=== PATIENT | female | born 1930 | race Caucasian/White ===

== ENCOUNTER 2016-10-06 23:58 | Inpatient (IN) | payer MEDICARE, OTHER ==
[~2016-10-06] VITALS: Ht 157.5 cm; Wt 65.6 kg
[~2016-10-06 23:58] MED LIST: ALPR.25 PO; ASPI81TA82 PO; COCOOIL PO; GABA600T PO; HYDR-3535 PO; LISI-360 PO; METO100T9 PO; NORC10TA2 PO; OMEP20TA PO; POTA10TA2 PO; RIVA20 PO; SIMV20 PO; SODI1000 PO; Z.0.COMMODE-3:1; Z.0.WALKERFRONT
[2016-10-07] VITALS (28 sets, daily range): BP systolic 79–194; BP diastolic 46–146; PULSE 58–149; RESP 14–34; TEMP 97.6–98.1; O2SAT 4–99
[2016-10-07] MEDS: SODIUM CHLOR 0.9% 1000 ML INJ 800 ML IV ONE ×2 (00:17→01:54)
[2016-10-07] MEDS ORDERED: SODIUM CHLOR 0.9% 1000 ML INJ 1,000 ML IV ONE (00:17)
[2016-10-07] MEDS ORDERED: METO100T PO (00:20)
[2016-10-07] MEDS ORDERED: LISI10TA3 PO (00:20)
[2016-10-07] MEDS ORDERED: ALPR.25 PO (00:20)
[2016-10-07] MEDS ORDERED: GABA600T PO (00:20)
[2016-10-07] MEDS ORDERED: HYDR-3366 PO (00:20)
[2016-10-07] MEDS ORDERED: XARE20TA PO (00:21)
[2016-10-07] MEDS ORDERED: OMEP20TA PO (00:21)
[2016-10-07] MEDS ORDERED: DILTIAZEM HCL 25 MG/5 ML VIAL IV ONE ×2 (00:30→02:30)
[2016-10-07 00:36] LABS: AUTOMATED NEUTROPHIL # 9.5 TH/MM3 (1.8-7.7); BASOPHIL # 0.1 TH/MM3 (0-0.2); BASOPHIL % 0.6 % (0.0-2.0); EOSINOPHIL % 0.4 % (0.0-4.0); HEMATOCRIT 37.7 % (35.0-46.0); HEMO FLAGS DIFF FINAL; MEAN CELL VOLUME 85.4 FL (80.0-100.0); MEAN CORPUSCULAR HGB CONC 32.8 % (32.0-36.0); MONO % 4.5 % (0.0-8.0); NEUT % 85.5 % (16.0-70.0); PLATELET COUNT 229 TH/MM3 (150-450); RED BLOOD COUNT 4.42 MIL/MM3 (4.00-5.30); RED CELL DISTRIBUTION WIDTH 14.5 % (11.6-17.2); WHITE BLOOD COUNT 11.2 TH/MM3 (4.0-11.0)
--- NOTE | 2016-10-07 00:42 | RADRPT ---
EXAM DATE/TIME: 10/07/2016 00:31 [facility] COMPARISON: CHEST SINGLE AP, September 12, 2014, 8:56. INDICATIONS : Shortness of breath. MEDICAL HISTORY : Hypertension. SURGICAL HISTORY : None. ENCOUNTER: Initial ACUITY: 1 day PAIN SCORE: 0/10 LOCATION: Bilateral chest FINDINGS: There is diffuse hazy opacity in both lungs. Differential diagnosis includes mild edema. No significa nt effusion. Heart size upper limits normal. CONCLUSION: 1. Vascular indistinctness and hazy opacity in both lungs most characteristic of pulmonary edema. Hea rt size mildly enlarged. No pneumothorax. Maximus Mike MD on October 07, 2016 at 0:39 Board Certified Radiologist. This report was verified electronically.
[2016-10-07 00:51] LABS: INTERNATIONAL NORMALIZED RATIO 1.2 RATIO; PROTHROMBIN TIME - PATIENT 13.8 SEC (9.8-11.6)
[2016-10-07 01:05] LABS: ALT (GPT) 26 U/L (10-53); ANION GAP 12 MEQ/L (5-15); AST (GOT) 42 U/L (15-37); BICARBONATE 21.1 MEQ/L (21.0-32.0); BLOOD UREA NITROGEN 13 MG/DL (7-18); CHLORIDE 103 MEQ/L (98-107); GLOMERULAR FILTRATION RATE 85 ML/MIN (>89); POTASSIUM 4.6 MEQ/L (3.5-5.1); SODIUM (NA) 136 MEQ/L (136-145)
--- NOTE | 2016-10-07 01:17 | PD ---
HPI Chief Complaint: Respiratory Symptoms Time Seen by Provider: 00:17 Travel History International Travel<30 days: No Contact w/Intl Traveler<30days: No Traveled to known affect area: No History of Present Illness HPI 86-year-old female brought in by EMS from home for evaluation of generalized malaise, nausea, vomiting, abdominal pain, shortness of breath. The patient has had abdominal pains for the last 2-3 weeks. History of hysterectomy. When she woke up this morning she was short of breath. She is complaining of epigastric abdominal discomfort. When the patient was placed on the monitor she was in A. fib with RVR. She reports history of A. fib and is on Xarelto. She has had a cough for the last several days which is nonproductive. PFSH Past Medical History Hx Anticoagulant Therapy: Yes (XARELTO ) Arthritis: Yes Blood Disorders: No Cancer: Yes (SKIN) Cardiovascular Problems: Yes (AFIB) High Cholesterol: Yes Chemotherapy: No Cerebrovascular Accident: Yes (2003) Diabetes: No Diminished Hearing: No Endocrine: No Gastrointestinal Disorders: Yes (HX MED INDUCED GASTRIC ULCER, GERD) Genitourinary: Yes (STRESS INCONTINENCE, STAGE II FAILURE) Headaches: No Hepatitis: No Hiatal Hernia: No Hypertension: Yes Immune Disorder: No Implanted Vascular Access Dvce: No Medical other: Yes (ANEMIA) Musculoskeletal: Yes (ARTHRITIS, OSTEOPOROSIS, FIBROMYALGIA) Neurologic: Yes (TIA) Psychiatric: Yes (ANXIETY) Reproductive: No Respiratory: No Integumentary: Yes (PREVIOUS SKIN CANCER) Immunizations Current: Yes Radiation Therapy: No Thyroid Disease: No Tetanus Vaccination: Unknown PNEUMOCCOCAL Vaccine (Year): 1 Menopausal: Yes Past Surgical History Abdominal Surgery: No AICD: No Appendectomy: Yes Arteriovenous Shunt: No Body Medical Devices: LEFT CORNEA Cardiac Surgery: No Ear Surgery: No Endocrine Surgery: No Eye Surgery: Yes (MARION. CATARACT EXTRACT., LEFT CORNEA TRANSPL.) Genitourinary Surgery: No Gynecologic Surgery: Yes (HYSTERECTOMY) Hysterectomy: Yes Insulin Pump: No Joint Replacement: No Neurologic Surgery: No Oral Surgery: Yes (T&A) Pacemaker: No Thoracic Surgery: No Tonsillectomy: Yes Other Surgery: Yes Social History Alcohol Use: No Tobacco Use: No Substance Use: No Allergies-Medications (Allergen,Severity, Reaction): Coded Allergies: Cymbalta (Verified Adverse Reaction, Severe, HYPERTENSION, 10/07/16) Reported Meds & Prescriptions Reported Meds & Active Scripts Active Walker Front Wheel (Z.0.walkerfront) Device 1 Unit Commode-3:1 (Z.0.commode-3:1) Device 1 Unit Reported Xarelto (Rivaroxaban) 20 Mg Tab 20 Mg PO DAILY Omeprazole 20 Mg Tab 20 Mg PO DAILY Metoprolol Tartrate 100 Mg Tab 100 Mg PO DAILY Lisinopril 10 Mg Tab 10 Mg PO DAILY [place] (Hydrocodone-Acetaminophen) 10-325 Mg Tab 1 Tab PO Q4H PRN Gabapentin 600 Mg Tab 600 Mg PO TID Xanax (Alprazolam) 0.25 Mg Tab 0.25 Mg PO HS PRN Coconut Oil (Coconut Oil (Bulk)) Oil 15 Ml PO DAILY Sodium Chloride (Sodium Chloride (External)) Unknown Strength Tab Unknown Dose PO DAILY Potassium Chloride Er (Potassium Chloride) 10 Meq Tab 10 Meq PO DAILY Omeprazole 20 mg (Omeprazole) 20 Mg Tab 1 Tab PO BID Simvastatin 20 mg (Simvastatin) 20 Mg Tab 20 Mg PO HS Review of Systems Except as stated in HPI: all other systems reviewed are Neg Physical Exam Narrative GENERAL: Well-developed, well-nourished, awake, alert, no acute distress. SKIN: Warm and dry. HEAD: Atraumatic. Normocephalic. EYES: Pupils equal and round. No scleral icterus. No injection or drainage. ENT: No nasal bleeding or discharge. Mucous membranes pink and moist. NECK: Trachea midline. No JVD. CARDIOVASCULAR: Tachycardic, rate 150s, irregularly irregular. RESPIRATORY: Mild intercostal retractions with end expiratory wheezes bilaterally. Coarse breath sounds bilaterally. Breath sounds equal bilaterally. GASTROINTESTINAL: Abdomen soft, nondistended. Mild diffuse tenderness without peritoneal signs. Normal bowel sounds. MUSCULOSKELETAL: No obvious deformities. No clubbing. No cyanosis. No edema. NEUROLOGICAL: Awake and alert. No obvious cranial nerve deficits. Motor grossly within normal limits. Normal speech. PSYCHIATRIC: Appropriate mood and affect; insight and judgment normal. Data Data Last Documented VS Vital Signs Date Time Temp Pulse Resp B/P Pulse Ox O2 Delivery O2 Flow Rate FiO2 10/07/16 02:15 149 30 194/146 94 3 10/07/16 01:38 Nasal Cannula 10/07/16 00:06 97.7 Orders Complete Blood Count With Diff (10/07/16 00:17) Comprehensive Metabolic Panel (10/07/16 00:17) Prothrombin Time / Inr (Pt) (10/07/16 00:17) Act Partial Throm Time (Ptt) (10/07/16 00:17) Lactic Acid Sepsis Protocol (10/07/16 00:17) Ckmb (Isoenzyme) Profile (10/07/16 00:17) Troponin I (10/07/16 00:17) Urinalysis - C+S If Indicated (10/07/16 00:17) Influenzae A/B Antigen (10/07/16 00:17) Blood Culture (10/07/16 00:17) Chest, Single Ap (10/07/16:17) Blood Glucose (10/07/16 00:17) Ecg Monitoring (10/07/16 00:17) Iv Access Insert/Monitor (10/07/16 00:17) Oximetry (10/07/16 00:17) Oxygen Administration (10/07/16 00:17) Ct Abd/Pel W Iv Contrast(Rout) (10/07/16 00:17) Sodium Chlor 0.9% 1000 Ml Inj (Ns 1000 M (10/07/16 00:17) Sodium Chlor 0.9% 1000 Ml Inj (Ns 1000 M (10/07/16 00:17) Diltiazem Inj (Cardizem Inj) (10/07/16 00:30) Albuterol-Ipratropium Neb (Duoneb Neb) (10/07/16 01:00) Iohexol 350 Inj (Omnipaque 350 Inj) (10/07/16 02:08) Diltiazem Inj (Cardizem Inj) (10/07/16 02:30) B-Type Natriuretic Peptide (10/07/16 02:45) Furosemide Inj (Lasix Inj) (10/07/16 03:00) Nicardipine Inj (Cardene Inj) (10/07/16 03:00) Lipase (10/07/16 03:05) Thyroid Stimulating Hormone (10/07/16 03:05) Creatine Kinase (Cpk) (10/07/16 06:00) Creatine Kinase (Cpk) (10/07/16 12:00) Troponin I (10/07/16 06:00) Troponin I (10/07/16 12:00) Nitroglycerin Sl (Nitrostat Sl) (10/07/16 03:15) Labs Laboratory Tests Test 10/07/16 00:20 White Blood Count 11.2 TH/MM3 Red Blood Count 4.42 MIL/MM3 Hemoglobin 12.4 GM/DL Hematocrit 37.7 % Mean Corpuscular Volume 85.4 FL Mean Corpuscular Hemoglobin 28.0 PG Mean Corpuscular Hemoglobin 32.8 % Concent Red Cell Distribution Width 14.5 % Platelet Count 229 TH/MM3 Mean Platelet Volume 9.7 FL Neutrophils (%) (Auto) 85.5 % Lymphocytes (%) (Auto) 9.0 % Monocytes (%) (Auto) 4.5 % Eosinophils (%) (Auto) 0.4 % Basophils (%) (Auto) 0.6 % Neutrophils # (Auto) 9.5 TH/MM3 Lymphocytes # (Auto) 1.0 TH/MM3 Monocytes # (Auto) 0.5 TH/MM3 Eosinophils # (Auto) 0.0 TH/MM3 Basophils # (Auto) 0.1 TH/MM3 CBC Comment DIFF FINAL Differential Comment Prothrombin Time 13.8 SEC Prothromb Time International 1.2 RATIO Ratio Activated Partial 31.0 SEC Thromboplast Time Sodium Level 136 MEQ/L Potassium Level 4.6 MEQ/L Chloride Level 103 MEQ/L Carbon Dioxide Level 21.1 MEQ/L Anion Gap 12 MEQ/L Blood Urea Nitrogen 13 MG/DL Creatinine 0.66 MG/DL Estimat Glomerular Filtration 85 ML/MIN Rate Random Glucose 175 MG/DL Lactic Acid Level 1.8 mmol/L Calcium Level 8.6 MG/DL Total Bilirubin 1.4 MG/DL Aspartate Amino Transf 42 U/L (AST/SGOT) Alanine Aminotransferase 26 U/L (ALT/SGPT) Alkaline Phosphatase 49 U/L Total Creatine Kinase 57 U/L Troponin I 0.02 NG/ML Total Protein 7.4 GM/DL Albumin 3.4 GM/DL [facility] Medical Decision Making Medical Screen Exam Complete: Yes Emergency Medical Condition: Yes Medical Record Reviewed: Yes Interpretation(s) EKG: A. fib, rate 153, normal axis, Q waves in septal leads, slight ST depressions in lateral leads. No ST segment elevations. Differential Diagnosis A. fib with RVR, pneumonia, influenza, intra-abdominal infection, UTI, metabolic abnormality Narrative Course Initial vital signs show heart rate 146, blood pressure 143/84, pulse ox 93% on room air, oral temp of 97.7F. CBC shows to be BC 11.2, hemoglobin 12.4, hematocrit 37.7, platelets 229, neutrophils 85.5%. CMP is remarkable for random glucose 175, otherwise unremarkable. Troponin is 0.02. Lactic acid is 1.8. Chest x-ray: CONCLUSION: 1. Vascular indistinctness and hazy opacity in both lungs most characteristic of pulmonary edema. Heart size mildly enlarged. No pneumothorax. CT abdomen pelvis: CONCLUSION: 1. Small bilateral pleural effusions and basilar air space disease in the lungs , possibly pulmonary edema. No acute findings within the abdomen and pelvis. The patient was given 10 mg of IV Cardizem shortly after arrival to the emergency department with initial improvement in heart rate. Shortly after heart rate returned to 140s and she was given another 10 minutes of IV Cardizem with mild improvement in heart rate to the 110s. She was started on a Cardizem drip. She was also given a dose of IV Lasix. She will be admitted for further treatment and evaluation of A. fib with RVR, pulmonary edema. 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 Case discussed with hospitalist Dr. Rushing who will admit the patient to his service to the [facility]. Critical Care Narrative Aggregate critical care time was 40 minutes. Time to perform other separately billable procedures was not included in the critical care time. My time did not include minutes spent treating any other patients simultaneously or on activities that did not directly contribute to the patient's treatment. The services I provided to this patient were to treat and/or prevent clinically significant deterioration that could result in: , permanent disability, worsening clinical condition I provided critical care services requiring my management, as noted below: Chart data review, documentation time, medication orders and management, vital sign assessments/reviewing monitor data, ordering and reviewing lab tests, ordering and interpreting/reviewing x-rays and diagnostic studies, care of the patient and discussion of the patient with the admitting physicians. Diagnosis Primary Impression: Atrial fibrillation with RVR Additional Impression: Pulmonary edema Qualified Code: J81.0 - Acute pulmonary edema Admitting Information Admitting Physician Requests: Admit London Carroll MD Oct 07, 2016 01:16
[2016-10-07] MEDS: RESP: ALBUTEROL 2.5 MG/IPRATROPIUM 0.5 MG NEB (SCH) INH ×2 (01:19→01:20)
[2016-10-07 01:27] LABS: ALKALINE PHOSPHATASE 49 U/L (45-117); TOTAL BILIRUBIN ADULT 1.4 MG/DL (0.2-1.0)
[2016-10-07 01:44] LABS: CREATINE KINASE 57 U/L (26-192)
[2016-10-07] MEDS ORDERED: IOHEXOL 350 MG/ML 10 ML VIAL (for RAD DIAG) IV ONE (02:08)
--- NOTE | 2016-10-07 02:32 | RADRPT ---
EXAM DATE/TIME: 10/07/2016 02:02 [facility] COMPARISON: No previous studies available for comparison. INDICATIONS : Abdomen pain for 2 weeks. IV CONTRAST: 85 cc Omnipaque 350 (iohexol) IV ORAL CONTRAST: No oral contrast ingested. RADIATION DOSE: 10.20 CTDIvol (mGy) MEDICAL HISTORY : Cardiovascular disease. Hypertension. SURGICAL HISTORY : Appendectomy. Hysterectomy. ENCOUNTER: Initial ACUITY: 2 weeks PAIN SCALE: 5/10 LOCATION: Bilateral abdomen TECHNIQUE: Volumetric scanning of the abdomen and pelvis was performed. Using automated exposure control and ad justment of the mA and/or kV according to patient size, radiation dose was kept as low as reasonably achievable to obtain optimal diagnostic quality images. FINDINGS: Small bilateral pleural effusions present. Groundglass opacity present in both lungs. No significant abnormality in the liver, spleen, adrenals, kidneys or pancreas. No calcified gallstones or biliary ductal dilatation. There is no free fluid. No bowel obstruction. There is colonic diverticulosis without evidence for di verticulitis. Pessary present. Advanced degenerative disc disease present in the lumbar spine. CONCLUSION: 1. Small bilateral pleural effusions and basilar air space disease in the lungs, possibly pulmonary e olga. No acute findings within the abdomen and pelvis. Maximus Mike MD on October 07, 2016 at 2:24 Board Certified Radiologist. This report was verified electronically.
[2016-10-07] MEDS ORDERED: FUROSEMIDE 40 MG/4 ML VIAL IV PUSH ONE (03:00)
[2016-10-07] MEDS ORDERED: niCARdipine INJ 25 MG in SODIUM CHLOR 0.9% 250 ML INJ 250 ML IV SCH (03:00)
[2016-10-07] MEDS ORDERED: NALOXONE HCL 0.4 MG/ML AMP IV PRN (03:15)
[2016-10-07] MEDS ORDERED: SODIUM CHLORIDE 0.9% FLUSH 5 ML FLUSH FLUSH PRN (03:15)
[2016-10-07] MEDS ORDERED: ONDANSETRON HCL 4 MG/2 ML VIAL IVP PRN (03:15)
[2016-10-07] MEDS ORDERED: ACETAMINOPHEN/HYDROcodone 325 MG/5 MG TAB PO PRN (03:15)
[2016-10-07] MEDS ORDERED: NITROGLYCERIN 0.4 MG SL 25 TABS/BTL SL PRN (03:15)
[2016-10-07] MEDS ORDERED: MAGNESIUM HYDROXIDE SUSP 30 ML CUP PO PRN (03:15)
[2016-10-07] MEDS ORDERED: SENNOSIDES 8.6 MG TAB PO PRN (03:15)
[2016-10-07] MEDS ORDERED: ENALAPRILAT 1.25 MG/ML VIAL IV PRN (03:15)
[2016-10-07] MEDS ORDERED: MORPHINE SULFATE 4 MG/ML INJ IV PRN (03:15)
[2016-10-07] MEDS ORDERED: BISACODYL 10 MG SUPP PR PRN (03:15)
[2016-10-07] MEDS ORDERED: ACETAMINOPHEN 325 MG TAB PO PRN ×2 (03:15)
[2016-10-07] MEDS ORDERED: cloNIDine HCL 0.1 MG TAB PO PRN (03:15)
[2016-10-07] MEDS: DILTIAZEM INJ 125 MG in SODIUM CHLORIDE 0.9% INJ 100 ML IV SCH ×2 (03:59→15:15)
--- NOTE | 2016-10-07 04:10 | HHI.HP ---
[facility] Service [place] Hospitalists Primary Care Physician Non-Staff Admission Diagnosis A. fib with RVR, pulmonary edema Diagnoses: Chief Complaint: Shortness of breath Travel History International Travel<30 Days: No Contact w/Intl Traveler <30 Da: No Traveled to Known Affected Are: No History of Present Illness This is a 86-year-old female brought in by EMS from home for evaluation of generalized malaise, nausea, vomiting, abdominal pain and shortness of breath. The patient has had pleuritic lower chest/epigastric pains and shortness of breath when she takes a deep breath for the past week associated with palpitations. Today she also complained of generalized malaise, nausea and vomiting. In the emergency department, she was found to be in A. fib with RVR and received 2 boluses of IV Cardizem and still in RVR. She reports history of A. fib and is on Xarelto and metoprolol. She has been compliant with her medical therapy. Patient has orthopnea, dyspnea on exertion and ankle swelling. Denies anginal pains. Review of Systems Constitutional: COMPLAINS OF: Fatigue, DENIES: Diaphoretic episodes, Fever, Weight gain, Weight loss, Chills, Dizziness, Change in appetite, Night Sweats Endocrine: DENIES: Heat/cold intolerance, Polydipsia, Polyuria, Polyphagia Eyes: DENIES: Blurred vision, Diplopia, Vision loss, Photosensitivity Ears, nose, mouth, throat: DENIES: Tinnitus, Vertigo, Throat pain, Hoarseness, Epistaxis, Odynophagia Respiratory: COMPLAINS OF: Cough, Wheezing, Shortness of breath, DENIES: Hemoptysis, Sputum production Cardiovascular: COMPLAINS OF: Chest pain, Palpitations, Dyspnea on Exertion, Lower Extremity Edema, Orthopnea, DENIES: Syncope, PND, Claudication Gastrointestinal: COMPLAINS OF: Abdominal pain, Nausea, Vomiting, DENIES: Black stools, Bloody stools, Constipation, Diarrhea, Difficulty Swallowing, Anorexia Genitourinary: DENIES: Urinary frequency, Urinary incontinence, Urgency, Hematuria, Dysuria, Nocturia, Vaginal discharge Integumentary: DENIES: Rash Neurologic: DENIES: Headache, Localized weakness, Seizures, Tremor, Poor Balance Psychiatric: DENIES: Anxiety, Confusion, Depression, Hallucinations, Agitation , Suicidal Ideation, Homicidal Ideation, Delusions Past Family Social History Past Medical History As previously mentioned. Arthritis, skin cancer, hyperlipidemia, CVA, gastric ulcer, GERD, stress incontinence, chronic kidney disease stage II, hypertension , anemia, osteoporosis, fibromyalgia and anxiety Past Surgical History Left knee replacement, cataract extraction, hysterectomy, tonsillectomy and adenectomy Reported Medications Xarelto (Rivaroxaban) 20 Mg Tab 20 Mg PO DAILY Omeprazole 20 Mg Tab 20 Mg PO DAILY Metoprolol Tartrate 100 Mg Tab 100 Mg PO DAILY Lisinopril 10 Mg Tab 10 Mg PO DAILY [place] (Hydrocodone-Acetaminophen) 10-325 Mg Tab 1 Tab PO Q4H PRN Gabapentin 600 Mg Tab 600 Mg PO TID Xanax (Alprazolam) 0.25 Mg Tab 0.25 Mg PO HS PRN Coconut Oil (Coconut Oil (Bulk)) Oil 15 Ml PO DAILY Sodium Chloride (Sodium Chloride (External)) Unknown Strength Tab Unknown Dose PO DAILY Potassium Chloride Er (Potassium Chloride) 10 Meq Tab 10 Meq PO DAILY Omeprazole 20 mg (Omeprazole) 20 Mg Tab 1 Tab PO BID Simvastatin 20 mg (Simvastatin) 20 Mg Tab 20 Mg PO HS Allergies: Coded Allergies: Cymbalta (Verified Adverse Reaction, Severe, HYPERTENSION, 10/07/16) Family History Heart failure Social History Does not Smoke or drink Physical Exam Vital Signs Vital Signs Date Time Temp Pulse Resp B/P Pulse Ox O2 Delivery O2 Flow Rate FiO2 10/07/16 02:15 149 30 194/146 94 3 10/07/16 01:38 93 Nasal Cannula 4.00 10/07/16 00:29 92 3 10/07/16 00:06 97.7 146 28 143/84 93 Physical Exam GENERAL: This is a well-nourished, well-developed patient, in mild respiratory distress with tachypnea and mild suprasternal retractions. SKIN: No rashes, ecchymoses or lesions. Cool and dry. HEAD: Atraumatic. Normocephalic. No temporal or scalp tenderness. EYES: Pupils equal round and reactive. Extraocular motions intact. No scleral icterus. No injection or drainage. ENT: Nose without bleeding, purulent drainage or septal hematoma. Throat without erythema, tonsillar hypertrophy or exudate. Uvula midline. Airway patent. NECK: Trachea midline. JVD present but no lymphadenopathy. Supple, nontender, no meningeal signs. CARDIOVASCULAR: Irregularly irregular tachycardic RESPIRATORY: Decreased Breath sounds equal bilaterally with bibasal crackles and inspiratory wheezes GASTROINTESTINAL: Abdomen soft, non-tender, nondistended.No guarding. MUSCULOSKELETAL: Extremities without clubbing, cyanosis but with trace leg edema. No joint tenderness, effusion, or edema noted. No calf tenderness. Negative Homans sign bilaterally. NEUROLOGICAL: Awake and alert. Cranial nerves II through XII intact. Motor and sensory grossly within normal limits. Five out of 5 muscle strength in all muscle groups. Normal speech. Laboratory Laboratory Tests Test 10/07/16 00:20 White Blood Count 11.2 Red Blood Count 4.42 Hemoglobin 12.4 Hematocrit 37.7 Mean Corpuscular Volume 85.4 Mean Corpuscular Hemoglobin 28.0 Mean Corpuscular Hemoglobin 32.8 Concent Red Cell Distribution Width 14.5 Platelet Count 229 Mean Platelet Volume 9.7 Neutrophils (%) (Auto) 85.5 Lymphocytes (%) (Auto) 9.0 Monocytes (%) (Auto) 4.5 Eosinophils (%) (Auto) 0.4 Basophils (%) (Auto) 0.6 Neutrophils # (Auto) 9.5 Lymphocytes # (Auto) 1.0 Monocytes # (Auto) 0.5 Eosinophils # (Auto) 0.0 Basophils # (Auto) 0.1 CBC Comment DIFF FINAL Differential Comment Prothrombin Time 13.8 Prothromb Time International 1.2 Ratio Activated Partial 31.0 Thromboplast Time Sodium Level 136 Potassium Level 4.6 Chloride Level 103 Carbon Dioxide Level 21.1 Anion Gap 12 Blood Urea Nitrogen 13 Creatinine 0.66 Estimat Glomerular Filtration 85 Rate Random Glucose 175 Lactic Acid Level 1.8 Calcium Level 8.6 Total Bilirubin 1.4 Aspartate Amino Transf 42 (AST/SGOT) Alanine Aminotransferase 26 (ALT/SGPT) Alkaline Phosphatase 49 Total Creatine Kinase 57 Troponin I 0.02 B-Type Natriuretic Peptide 582 Total Protein 7.4 Albumin 3.4 Lipase 41 Date/Time Procedure Status Source Growth 10/07/16 00:25 Aerobic Blood Culture Received Blood Peripheral Pending 10/07/16 00:25 Anaerobic Blood Culture Received Blood Peripheral Pending Result Diagram: 10/07/161910/07/1619 Imaging EKG tracing interpreted by me with A. fib with RVR Chest x-ray image interpreted by me. Hazy opacity in both lungs Last Impressions Chest X-Ray 10/07/1616 Signed Impressions: Service Date/Time: Friday, October 07, 2016 00:31 - CONCLUSION: 1. Vascular indistinctness and hazy opacity in both lungs most characteristic of pulmonary edema. Heart size mildly enlarged. No pneumothorax. Maximus Mike MD Abdomen/Pelvis CT 10/07/1616 Signed Impressions: Service Date/Time: Friday, October 07, 2016 02:02 - CONCLUSION: 1. Small bilateral pleural effusions and basilar air space disease in the lungs, possibly pulmonary edema. No acute findings within the abdomen and pelvis. Maximus Mike MD Assessment and Plan Problem List: (1) Atrial fibrillation with RVR ICD Code: I48.91 Status: Acute (2) Pulmonary edema ICD Code: J81.1 Status: Acute Assessment and Plan This is a 86-year-old female brought in by EMS from home for evaluation of generalized malaise, nausea, vomiting, abdominal pain and shortness of breath. The patient has had pleuritic lower chest/epigastric pains and shortness of breath when she takes a deep breath for the past week associated with palpitations. Today she also complained of generalized malaise, nausea and vomiting. In the emergency department, she was found to be in A. fib with RVR A. fib with RVR. Obtain echocardiogram, TSH and trend cardiac enzymes. Patient received Cardizem boluses and will start Cardizem drip to keep heart rate less than 100. Continue Xarelto and metoprolol. Consult cardiology may need ablation Pulmonary edema secondary to above. Patient received IV Lasix and we'll continue daily monitor renal function and electrolytes. Uncontrolled hypertension. Continue home medications of lisinopril and metoprolol with as needed IV Vasotec and clonidine. Continue to monitor Chronic medical conditions of Arthritis, skin cancer, hyperlipidemia, CVA, gastric ulcer, GERD, stress incontinence, chronic kidney disease stage II anemia , osteoporosis, fibromyalgia and anxiety. Continue outpatient medications as appropriate DVT prophylaxis with SCD and Xarelto Code Status full Discussed Condition With pt and ER staff Physician Certification 2 Midnight Certification Type: Admission for Inpatient Services Order for Inpatient Services The services are ordered in accordance with Medicare regulations or non- Medicare payer requirements, as applicable. In the case of services not specified as inpatient-only, they are appropriately provided as inpatient services in accordance with the 2-midnight benchmark. Estimated LOS (days): 2 days is the estimated time the patient will need to remain in the hospital, assuming treatment plan goals are met and no additional complications. Post-Hospital Plan: Home Problem Qualifiers (1) Pulmonary edema: Qualified Code: J81.0 - Acute pulmonary edema Naeem Rushing MD Oct 07, 2016 04:10
[2016-10-07] MEDS: RIVAROXABAN 20 MG TAB PO SCH (08:48)
[2016-10-07] MEDS: PANTOPRAZOLE SOD 40 MG DELAYED RELEASE TAB PO SCH (08:48)
[2016-10-07] MEDS: LISINOPRIL 10 MG TAB PO SCH (08:49)
[2016-10-07] MEDS: DOCUSATE SODIUM 100 MG CAP PO SCH ×2 (08:49→20:39)
[2016-10-07] MEDS: FUROSEMIDE 40 MG/4 ML VIAL IV PUSH SCH (08:49)
[2016-10-07] MEDS: SODIUM CHLORIDE 0.9% FLUSH 5 ML FLUSH FLUSH SCH ×2 (08:50→20:40)
[2016-10-07] MEDS ORDERED: METOPROLOL TARTRATE 100 MG TAB PO SCH (09:00)
[2016-10-07] MEDS ORDERED: GABAPENTIN 300 MG CAP PO SCH (09:00)
--- NOTE | 2016-10-07 10:03 | HHI.PR ---
Subjective Remarks f/u for atrial fibrillation with RVR Patient stated she feels a lot better. SOB improved. Denied any CP or palpitations. her daughter and nurse are at the bedside during interview. Objective Vitals Vital Signs Date Time Temp Pulse Resp B/P Pulse Ox O2 Delivery O2 Flow Rate FiO2 10/07/16 08:15 97.9 102 18 137/92 92 10/07/16 06:15 133 10/07/16 06:15 98.0 133 155/107 4 10/07/16 04:46 127 32 159/87 98 Nasal Cannula 3 10/07/16 03:33 124 34 174/88 97 Nasal Cannula 3 10/07/16 02:15 149 30 194/146 94 3 10/07/16 01:38 93 Nasal Cannula 4.00 10/07/16 00:29 92 3 10/07/16 00:06 97.7 146 28 143/84 93 I/O 10/06/16 10/06/16 10/06/16 10/07/16 10/07/16 10/07/16 07:00 15:00 23:00 07:00 15:00 23:00 Output Total 200 ml Balance -200 ml Output Urine Total 200 ml Result Diagram: 10/07/16 0020 10/07/16 0020 Imaging Last Impressions Chest X-Ray 10/07/1616 Signed Impressions: Service Date/Time: Friday, October 07, 2016 00:31 - CONCLUSION: 1. Vascular indistinctness and hazy opacity in both lungs most characteristic of pulmonary edema. Heart size mildly enlarged. No pneumothorax. Maximus Mike MD Abdomen/Pelvis CT 10/07/1616 Signed Impressions: Service Date/Time: Friday, October 07, 2016 02:02 - CONCLUSION: 1. Small bilateral pleural effusions and basilar air space disease in the lungs, possibly pulmonary edema. No acute findings within the abdomen and pelvis. Maximus Mike MD Objective Remarks Gen NAD Resp : C/o lower lobe crackles. CV irregular rate and irregular rhythm. no JVD abd soft NDNT Ext neg edema Medications and IVs Current Medications Sodium Chloride 1,000 ml @ 1,000 mls/hr Q1H ONCE IV Last administered on t 00:26; Start 10/07/16 at 00:17; Stop 10/07/16 at 01:16; Status DC Sodium Chloride (NS 1000 ml Inj) 800 ml @ 1,000 mls/hr Q48M ONCE IV ; Start at 00:17; Stop 10/07/16 at 01:04; Status DC Diltiazem HCl (Cardizem Inj) 10 mg ONCE ONCE IV Last administered on 00:23; Start 10/07/16 at 00:30; Stop 10/07/16 at 00:31; Status DC Albuterol/ Ipratropium (Duoneb Neb) 1 ampule Q15M INH Last administered on 10/07 01:20; Start 10/07/16 at 01:00; Stop 10/07/16 at 01:31; Status DC Iohexol (Omnipaque 350 Inj) 85 ml STK-MED ONCE IV ; Start 10/07/16 at 02:08; Stop 10/07/16 at 02:09; Status DC Diltiazem HCl (Cardizem Inj) 10 mg ONCE ONCE IV Last administered on 02:22; Start 10/07/16 at 02:30; Stop 10/07/16 at 02:31; Status DC Furosemide 40 mg 40 mg ONCE ONCE IV PUSH Last administered on 10/07/16 03:58 ; Start 10/07/16 at 03:00; Stop 10/07/16 at 03:01; Status DC Nicardipine HCl/ Sodium Chloride (Cardene Inj/NS 250 ml Inj) 260 ml @ 0 mls/hr TITRATE IV ; Start 10/07/16 at 03:00; Stop 10/07/16 at 03:09; Status DC Nitroglycerin 0.4 mg 0.4 mg Q5M PRN SL X 3 doses for chest pain; Start at 03:15 Diltiazem HCl/ Sodium Chloride (Cardizem Inj/NS Inj) 125 ml @ 0 mls/hr TITRATE IV Last administered on 10/07/16 03:59; Start 10/07/16 at 03:15 IV Flush (NS Flush) 2 ml UNSCH PRN FLUSH FLUSH AFTER USING IV ACCESS; Start at 03:15 IV Flush (NS Flush) 2 ml BID FLUSH Last administered on 10/07/16 08:50; Start 10/07/16 at 09:00 Acetaminophen (Tylenol) 650 mg Q4H PRN PO TEMP > 100.4; Start 10/07/16 at 03:15 Ondansetron HCl (Zofran Inj) 4 mg Q6H PRN IVP NAUSEA OR VOMITING; Start at 03:15 Bisacodyl (Dulcolax Supp) 10 mg DAILY PRN [place] CONSTIPATION; Start 10/07/16 at 03 :15 Docusate Sodium (Colace) 100 mg Q12HR PO Last administered on 10/07/16 08:49; Start 10/07/16 at 09:00 Magnesium Hydroxide (Milk Of [place] Liq) 30 ml Q12H PRN PO CONSTIPATION; Start 10/07/16 at 03:15 Sennosides (Senokot) 17.2 mg Q12H PRN PO CONSTIPATION; Start 10/07/16 at 03:15 Acetaminophen (Tylenol) 650 mg Q6H PRN PO PAIN SCALE 1 TO 2; Start 10/07/16 at 03:15 Acetaminophen/ Hydrocodone Bitart ([place] 5-325 Mg) 1 tab Q4H PRN PO PAIN SCALE 3 TO 5; Start 10/07/16 at 03:15 Acetaminophen/ Hydrocodone Bitart ([place] 7.5-325 Mg) 1 tab Q4H PRN PO PAIN SCALE 6 TO 10; Start 10/07/16 at 03:15 Morphine Sulfate (Morphine Inj) 1 mg Q3H PRN IV BREAKTHROUGH PAIN; Start at 03:15 Naloxone HCl (Narcan Inj) 0.4 mg UNSCH PRN IV SEE LABEL COMMENTS; Start at 03:15 Pantoprazole Sodium (Protonix) 40 mg DAILY PO Last administered on 10/07/16 08 :48; Start 10/07/16 at 09:00 Enalaprilat (Vasotec Inj) 1.25 mg Q6H PRN IV SBP> OR = 180, DBP> OR = 100; Start 10/07/16 at 03:15 Clonidine (Catapres) 0.1 mg Q6H PRN PO SBP> OR = 180, DBP> OR = 100; Start at 03:15 Furosemide (Lasix Inj) 40 mg DAILY IV PUSH Last administered on 10/07/16 08:49 ; Start 10/07/16 at 09:00 Alprazolam (Xanax) 0.25 mg HS PRN PO ANXIETY; Start 10/07/16 at 03:15 Gabapentin (Neurontin) 600 mg TID PO Last administered on 10/07/16 08:49; Start 10/07/16 at 09:00 Lisinopril (Prinivil) 10 mg DAILY PO Last administered on 10/07/16 08:49; Start 10/07/16 at 09:00 Metoprolol Tartrate (Lopressor) 100 mg DAILY PO Last administered on 10/07/16 08:48; Start 10/07/16 at 09:00 Rivaroxaban (Xarelto) 20 mg DAILY PO Last administered on 10/07/16 08:48; Start 10/07/16 at 09:00 A/P Problem List: (1) Atrial fibrillation with RVR ICD Code: I48.91 Status: Acute (2) Pulmonary edema ICD Code: J81.1 Status: Acute Assessment and Plan This is a 86-year-old female brought in by EMS from home for evaluation of generalized malaise, nausea, vomiting, abdominal pain and shortness of breath. The patient has had pleuritic lower chest/epigastric pains and shortness of breath when she takes a deep breath for the past week associated with palpitations. Today she also complained of generalized malaise, nausea and vomiting. In the emergency department, she was found to be in A. fib with RVR A. fib with RVR. -patient has hx of atrial fibrillation. -pending ECHO, TSH and trend cardiac enzymes. -on cardizem gtt on 15 and better controlled. - Continue Xarelto and metoprolol. -pending consult from material engineer. Pulmonary edema -clinically improved. - secondary to above. -Patient received IV Lasix and we'll continue daily monitor renal function and electrolytes. Uncontrolled hypertension. -improved. -Continue home medications of lisinopril and metoprolol with as needed IV Vasotec and clonidine. Continue to monitor Chronic medical conditions of Arthritis, skin cancer, hyperlipidemia, CVA, gastric ulcer, GERD, stress incontinence, chronic kidney disease stage II anemia , osteoporosis, fibromyalgia and anxiety. -Continue outpatient medications as appropriate DVT prophylaxis with SCD and Xarelto Dispo: patient continues to be on Cardizem gtt. She must be off the drip and HR controlled on oral medication before discharge. Problem Qualifiers (1) Pulmonary edema: Qualified Code: J81.0 - Acute pulmonary edema Billie Matthews MD Oct 07, 2016 10:03
--- NOTE | 2016-10-07 11:47 | EC ---
Study Study Date:10/07/2016 STUDY CONCLUSIONS SUMMARY - Left ventricle: The cavity size was normal. Wall thickness was increased increased in a pattern of mild to moderate LVH. Systolic function was at the lower limits of normal. The estimated ejection fraction was in the range of 50% to 55%. Wall motion was normal; there were no regional wall motion abnormalities. - Mitral valve: Not well visualized. Moderate to severe regurgitation. - Left atrium: The atrium was moderately dilated. - Right ventricle: The cavity size was mildly dilated. Wall thickness was normal. - Right atrium: The atrium was moderately dilated. - Tricuspid valve: Moderate regurgitation. - Pulmonary arteries: Systolic pressure was moderately increased. PA peak pressure: 51mm Hg (S). If LV function is below 40, please consider prescribing an ACEI or ARB or document rationale for non-use. PROCEDURE DATA STUDY STATUS: Elective. Procedure: Transthoracic echocardiography. Image quality was good. Scanning was performed from the parasternal, apical, and subcostal acoustic windows. Study completion: The patient tolerated the procedure well. Transthoracic echocardiography. M-mode, complete 2D, complete spectral Doppler, and color Doppler. Patient status: Inpatient. CARDIAC ANATOMY LEFT VENTRICLE: Not well visualized. The cavity size was normal. Wall thickness was increased increased in a pattern of mild to moderate LVH. Systolic function was at the lower limits of normal. The estimated ejection fraction was in the range of 50% to 55%. Wall motion was normal; there were no regional wall motion abnormalities. AORTIC VALVE: Trileaflet; mildly thickened, mildly calcified leaflets. Doppler: Transvalvular velocity was within the normal range. There was no stenosis. No regurgitation. AORTA: Aortic root: The aortic root was normal in size. MITRAL VALVE: Not well visualized. Structurally normal valve. Doppler: Transvalvular velocity was within the normal range. There was no evidence for stenosis. Moderate to severe regurgitation. Peak gradient: 5mm Hg (D). LEFT ATRIUM: The atrium was moderately dilated. RIGHT VENTRICLE: The cavity size was mildly dilated. Wall thickness was normal. PULMONIC VALVE: Doppler: Transvalvular velocity was within the normal range. There was no evidence for stenosis. No regurgitation. TRICUSPID VALVE: Structurally normal valve. Doppler: Transvalvular velocity was within the normal range. Moderate regurgitation. PULMONARY ARTERY: Systolic pressure was moderately increased. RIGHT ATRIUM: The atrium was moderately dilated. PERICARDIUM: There was no pericardial effusion. SYSTEMIC VEINS: Inferior vena cava: The vessel was normal in size. BASIC MEASUREMENTS ADULT Normal Left ventricle LV internal dimension, ED, chordal level, *39.8 mm 43-52 PLAX LV posterior wall thickness, ED 5.74 mm IVS/LVPW ratio, ED *1.79 <1.3 Ventricular septum Septal thickness, ED 10.3 mm Aortic valve Leaflet separation 15 mm 15-26 Left atrium Anterior-posterior dimension 34 mm Right ventricle RV internal dimension, ED, PLAX *17.7 mm 19-38 BASIC MEASUREMENTS ADULT Normal Aortic valve Leaflet separation 15 mm 15-26 Aorta Root diameter, ED 22 mm 20-37 DOPPLER MEASUREMENTS ADULT Normal Main pulmonary artery Pressure, S *51 mm Hg =30 Mitral valve Peak E-wave velocity 110 cm/s Peak gradient, D 5 mm Hg Maximal regurgitant velocity 424 cm/s Tricuspid valve Regurgitant peak velocity 266 cm/s Peak RV-RA gradient, S 28 mm Hg Maximal regurgitant velocity 266 cm/s Systemic veins Estimated CVP 20 mm Hg Right ventricle RV pressure, S *51 mm Hg <30 LEGEND: Mean values are shown as u=mean value. Asterisk (*) capone values outside specified normal range. Prepared and signed by Jeff Coffey [id number]
[2016-10-07 15:52] LABS: BICARBONATE 26.5 MEQ/L (21.0-32.0); POTASSIUM 3.4 MEQ/L (3.5-5.1)
--- NOTE | 2016-10-07 16:47 | EKG ---
Date Performed: 10/07/2016 Time Performed: 00:12:04 PTAGE: 86 years EKG: ATRIAL FIBRILLATION WITH RAPID VENTRICULAR RESPONSE SEPTAL MYOCARDIAL INFARCTION ATRIAL FIB RILLATION IS NEW SINCE PRIOR TRACING. DIFFUSED ST T-WAVE CHANGES. Clinical correlation is recommended ABNORMAL ECG PREVIOUS TRACING : 01/04/2016 09.18 DOCTOR: Rajan Snider Interpretating Date/Time 10/07/2016 16:47:23
--- NOTE | 2016-10-07 16:54 | MB ---
cc: CHUY WATKINS MD DATE OF CONSULTATION 10/07/16 HISTORY OF PRESENT ILLNESS Ms. Guthrie is an 86 year old white female with a history of cerebrovascular accident, chronic kidney disease, hypertension. She was brought by [facility] from home due to shortness of breath, palpitation, nausea, vomiting, malaise and abdominal pain. She also had pleuritic chest pain with deep inspiration and also shortness of breath. She was found to be in atrial fibrillation with rapid ventricular response. She has not had any angina or peripheral edema. PAST MEDICAL HISTORY 1. Atrial fibrillation 2. Stage II chronic kidney disease 3. Cerebrovascular accident 4. Dyslipidemia 5. Hypertension 6. Arthritis 7. Skin cancer 8. Gastric ulcer 9. Gastroesophageal reflux disease 10. Incontinence 12. Fibromyalgia 13. Anxiety PAST SURGICAL HISTORY 1. Adenoidectomy 2. Tonsillectomy 3. Hysterectomy 4. Cataract extraction 5. Left knee replacement. MEDICATIONS 1. Simvastatin 2. Omeprazole 3. Potassium 4. Sodium chloride 6. Xanax 7. Gabapentin 8. [place] 9. Lisinopril 10. Metoprolol 11. Xarelto 20 mg a day ALLERGIES [place]MB[place] SOCIAL HISTORY The patient does not smoke. She does not drink alcohol. FAMILY HISTORY Positive for coronary artery disease in her sister. REVIEW OF SYSTEMS Otherwise negative. PHYSICAL EXAMINATION VITAL SIGNS: Blood pressure 93/51, pulse 102 and irregular. HEENT: Negative, 2+ carotid upstrokes, no bruits. LUNGS: Clear. HEART: Irregularly irregular with no murmurs, rubs or gallops ABDOMEN: Soft, no bruits. EXTREMITIES: Without trace edema, 1+ distal pulses. NEUROLOGIC: Grossly nonfocal. CARDIOLOGY STUDIES Electrocardiogram was reviewed and showed atrial fibrillation with rapid ventricular response, normal axis, anteroseptal T waves and nonspecific ST-T changes. Echocardiogram revealed borderline LV systolic function with an ejection fraction of 50-65%. No segmental wall motion abnormalities. Moderate to severe mitral regurgitation. Moderate left atrial enlargement. Mild right ventricle enlargement. Moderate right atrial enlargement. Moderate tricuspid regurgitation, and mild to moderate pulmonary hypertension. LABORATORY DATA Hemoglobin 12.4, potassium 3.4, creatinine 0.7, troponin negative times three. CK negative times three. TSH 0.5. BNP is 582. DIAGNOSES 1. Atrial fibrillation with rapid ventricular response 2. Acute congestive heart failure 3. Mitral regurgitation 4. Hypertension 5. Chronic kidney disease 6. Dyslipidemia 7. History of cerebrovascular accident DISPOSITION Ms. Guthrie will be monitored on telemetry. Her heart rate is now better controlled with metoprolol. We will continue anticoagulation with Xarelto given her history of atrial fibrillation and also previous history of stroke. She has significant mitral regurgitation. I recommend to continue and titrate blood pressure control for an effective afterload reduction. She will be monitored on telemetry. I will follow her for cardiology during her hospitalization. I will also see her back for followup in our office after discharge. MD HECTOR Johansen/ /4:17 PM /4:33 PM FREDRICK
[2016-10-07] MEDS: GABAPENTIN 300 MG CAP PO SCH (20:40)
[2016-10-08] VITALS (32 sets, daily range): BP systolic 85–114; BP diastolic 42–75; PULSE 81–132; RESP 16–20; TEMP 98–98.4; O2SAT 95–97
[2016-10-08] MEDS: ACETAMINOPHEN/HYDROcodone 325 MG/7.5 MG TAB PO PRN (05:49)
[2016-10-08 06:51] LABS: AUTOMATED NEUTROPHIL # 7.4 TH/MM3 (1.8-7.7); BASOPHIL % 0.4 % (0.0-2.0); EOSINOPHIL # 0.1 TH/MM3 (0-0.4); EOSINOPHIL % 0.9 % (0.0-4.0); HEMO FLAGS DIFF FINAL; LYMPHOCYTE # 1.1 TH/MM3 (1.0-4.8); MEAN CELL VOLUME 84.4 FL (80.0-100.0); MEAN CORPUSCULAR HEMOGLOBIN 27.8 PG (27.0-34.0); MONO % 5.9 % (0.0-8.0); NEUT % 80.8 % (16.0-70.0); PLATELET COUNT 183 TH/MM3 (150-450); RED BLOOD COUNT 3.79 MIL/MM3 (4.00-5.30); RED CELL DISTRIBUTION WIDTH 15.2 % (11.6-17.2); WHITE BLOOD COUNT 9.1 TH/MM3 (4.0-11.0)
[2016-10-08 07:12] LABS: POTASSIUM 3.2 MEQ/L (3.5-5.1)
[2016-10-08] MEDS: LISINOPRIL 10 MG TAB PO SCH (09:00)
[2016-10-08] MEDS: SODIUM CHLORIDE 0.9% FLUSH 5 ML FLUSH FLUSH SCH ×2 (09:00→21:00)
[2016-10-08] MEDS: FUROSEMIDE 40 MG/4 ML VIAL IV PUSH SCH (09:00)
--- NOTE | 2016-10-08 09:26 | HHI.PR ---
Subjective Remarks f/u for atrial fibrillation with RVR patient was put back on cardizem gtt at 5 am. She denied any CP, SOB, palpitations, lightheadedness/dizziness. Objective Vitals Vital Signs Date Time Temp Pulse Resp B/P Pulse Ox O2 Delivery O2 Flow Rate FiO2 10/08/16 09:15 102 10/08/16 08:00 105 10/08/16 07:40 98.4 105 16 101/50 95 10/07/16 18:01 90 10/07/16 17:00 94 10/07/16 16:01 92 10/07/16 15:45 98.1 99 20 116/70 99 10/07/16 15:00 82 10/07/16 14:00 70 10/07/16 13:14 95 21 10/07/16 13:02 102 18 93/51 93 10/07/16 13:01 66 10/07/16 12:00 58 10/07/16 11:15 97.6 62 14 79/46 93 10/07/16 11:00 60 10/07/16 10:00 80 I/O 10/07/16 10/07/16 10/07/16 10/08/16 10/08/16 10/08/16 07:00 15:00 23:00 07:00 15:00 23:00 Intake Total 340 ml Output Total 200 ml 250 ml Balance -200 ml 90 ml Intake Oral 240 ml IV Total 100 ml Output Urine Total 200 ml 250 ml # Voids 4 # Bowel Movements 0 Result Diagram: 10/08/1661810/08/16618 Objective Remarks Gen NAD Resp : B/L lower lobe crackles. CV irregular rate and irregular rhythm. no JVD abd soft NDNT Ext neg edema Medications and IVs Current Medications Sodium Chloride 1,000 ml @ 1,000 mls/hr Q1H ONCE IV Last administered on t 00:26; Start 10/07/16 at 00:17; Stop 10/07/16 at 01:16; Status DC Sodium Chloride (NS 1000 ml Inj) 800 ml @ 1,000 mls/hr Q48M ONCE IV ; Start at 00:17; Stop 10/07/16 at 01:04; Status DC Diltiazem HCl (Cardizem Inj) 10 mg ONCE ONCE IV Last administered on 00:23; Start 10/07/16 at 00:30; Stop 10/07/16 at 00:31; Status DC Albuterol/ Ipratropium (Duoneb Neb) 1 ampule Q15M INH Last administered on 10/07 01:20; Start 10/07/16 at 01:00; Stop 10/07/16 at 01:31; Status DC Iohexol (Omnipaque 350 Inj) 85 ml STK-MED ONCE IV ; Start 10/07/16 at 02:08; Stop 10/07/16 at 02:09; Status DC Diltiazem HCl (Cardizem Inj) 10 mg ONCE ONCE IV Last administered on 02:22; Start 10/07/16 at 02:30; Stop 10/07/16 at 02:31; Status DC Furosemide 40 mg 40 mg ONCE ONCE IV PUSH Last administered on 10/07/16 03:58 ; Start 10/07/16 at 03:00; Stop 10/07/16 at 03:01; Status DC Nicardipine HCl/ Sodium Chloride (Cardene Inj/NS 250 ml Inj) 260 ml @ 0 mls/hr TITRATE IV ; Start 10/07/16 at 03:00; Stop 10/07/16 at 03:09; Status DC Nitroglycerin 0.4 mg 0.4 mg Q5M PRN SL X 3 doses for chest pain; Start at 03:15 Diltiazem HCl/ Sodium Chloride (Cardizem Inj/NS Inj) 125 ml @ 0 mls/hr TITRATE IV Last administered on 10/07/16 15:15; Start 10/07/16 at 03:15; Stop at 15:40; Status DC IV Flush (NS Flush) 2 ml UNSCH PRN FLUSH FLUSH AFTER USING IV ACCESS; Start at 03:15 IV Flush (NS Flush) 2 ml BID FLUSH Last administered on 10/07/16 20:40; Start 10/07/16 at 09:00 Acetaminophen (Tylenol) 650 mg Q4H PRN PO TEMP > 100.4; Start 10/07/16 at 03:15 Ondansetron HCl (Zofran Inj) 4 mg Q6H PRN IVP NAUSEA OR VOMITING; Start at 03:15 Bisacodyl (Dulcolax Supp) 10 mg DAILY PRN [place] CONSTIPATION; Start 10/07/16 at 03 :15 Docusate Sodium (Colace) 100 mg Q12HR PO Last administered on 10/07/16 20:39; Start 10/07/16 at 09:00 Magnesium Hydroxide (Milk Of [place] Liq) 30 ml Q12H PRN PO CONSTIPATION; Start 10/07/16 at 03:15 Sennosides (Senokot) 17.2 mg Q12H PRN PO CONSTIPATION; Start 10/07/16 at 03:15 Acetaminophen (Tylenol) 650 mg Q6H PRN PO PAIN SCALE 1 TO 2; Start 10/07/16 at 03:15 Acetaminophen/ Hydrocodone Bitart ([place] 5-325 Mg) 1 tab Q4H PRN PO PAIN SCALE 3 TO 5; Start 10/07/16 at 03:15 Acetaminophen/ Hydrocodone Bitart ([place] 7.5-325 Mg) 1 tab Q4H PRN PO PAIN SCALE 6 TO 10 Last administered on 10/08/16 05:49; Start 10/07/16 at 03:15 Morphine Sulfate (Morphine Inj) 1 mg Q3H PRN IV BREAKTHROUGH PAIN; Start at 03:15 Naloxone HCl (Narcan Inj) 0.4 mg UNSCH PRN IV SEE LABEL COMMENTS; Start at 03:15 Pantoprazole Sodium (Protonix) 40 mg DAILY PO Last administered on 10/07/16 08 :48; Start 10/07/16 at 09:00 Enalaprilat (Vasotec Inj) 1.25 mg Q6H PRN IV SBP> OR = 180, DBP> OR = 100; Start 10/07/16 at 03:15 Clonidine (Catapres) 0.1 mg Q6H PRN PO SBP> OR = 180, DBP> OR = 100; Start at 03:15 Furosemide (Lasix Inj) 40 mg DAILY IV PUSH Last administered on 10/07/16 08:49 ; Start 10/07/16 at 09:00 Alprazolam (Xanax) 0.25 mg HS PRN PO ANXIETY; Start 2/28/17 at 03:15 Gabapentin (Neurontin) 600 mg TID PO Last administered on 10/07/16 08:49; Start 10/07/16 at 09:00; Stop 10/07/16 at 13:15; Status DC Lisinopril (Prinivil) 10 mg DAILY PO Last administered on 10/07/16 08:49; Start 10/07/16 at 09:00 Metoprolol Tartrate (Lopressor) 100 mg DAILY PO Last administered on 10/07/16 08:48; Start 10/07/16 at 09:00 Rivaroxaban (Xarelto) 20 mg DAILY PO Last administered on 10/07/16 08:48; Start 10/07/16 at 09:00 Gabapentin (Neurontin) 600 mg BID PO Last administered on 10/07/16 20:40; Start 10/07/16 at 21:00 A/P Problem List: (1) Atrial fibrillation with RVR ICD Code: I48.91 Status: Acute (2) Pulmonary edema ICD Code: J81.1 Status: Acute Assessment and Plan This is a 86-year-old female brought in by EMS from home for evaluation of generalized malaise, nausea, vomiting, abdominal pain and shortness of breath. The patient has had pleuritic lower chest/epigastric pains and shortness of breath when she takes a deep breath for the past week associated with palpitations. Today she also complained of generalized malaise, nausea and vomiting. In the emergency department, she was found to be in A. fib with RVR A. fib with RVR. -patient has hx of atrial fibrillation. - ECHO showed LVH, mod to severe mitral regurgitation, mod tricuspid regurgitation. -on cardizem gtt at 5 and currently controlled. -increase metoprolol tartrate to 100 mg PO BID. -will try to wean off of cardizem. d/w her nurse. -on xarelto. 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 Pulmonary edema -clinically improved. - secondary to above. -on lasix. Uncontrolled hypertension. -improved. -Continue home medications of lisinopril and metoprolol with as needed IV Vasotec and clonidine. -metoprolol was increased. Chronic medical conditions of Arthritis, skin cancer, hyperlipidemia, CVA, gastric ulcer, GERD, stress incontinence, chronic kidney disease stage II anemia , osteoporosis, fibromyalgia and anxiety. -Continue outpatient medications as appropriate DVT prophylaxis with SCD and Xarelto Dispo: patient continues to be on Cardizem gtt. She must be off the drip and HR controlled on oral medication before discharge. Problem Qualifiers (1) Pulmonary edema: Qualified Code: J81.0 - Acute pulmonary edema Billie Matthews MD Oct 08, 2016 09:26
[2016-10-08] MEDS ORDERED: POTASSIUM CHLORIDE 10 MEQ CONTROLLED RELEASE TAB PO ONE (09:30)
[2016-10-08] MEDS: GABAPENTIN 300 MG CAP PO SCH ×2 (10:01→21:45)
[2016-10-08] MEDS: PANTOPRAZOLE SOD 40 MG DELAYED RELEASE TAB PO SCH (10:01)
[2016-10-08] MEDS: RIVAROXABAN 20 MG TAB PO SCH (10:02)
[2016-10-08] MEDS: DOCUSATE SODIUM 100 MG CAP PO SCH ×2 (10:02→21:45)
--- NOTE | 2016-10-08 18:01 | PD.CARD.PN ---
Subjective Subjective Remarks No CP or SOB, feels better Objective Medications Current Medications Medications (Trade) Dose Ordered Sig/Eduin Route Start Time Stop Time Status Last Admin (Nitrostat Sl) 0.4 mg Q5M PRN SL 10/07/16 03:15 (NS Flush) 2 ml UNSCH PRN FLUSH 10/07/16 03:15 (NS Flush) 2 ml BID FLUSH 10/07/16 09:00 10/07/16 20:40 (Tylenol) 650 mg Q4H PRN PO 10/07/16 03:15 (Zofran Inj) 4 mg Q6H PRN IVP 10/07/16 03:15 (Dulcolax Supp) 10 mg DAILY PRN [place] 10/07/16 03:15 (Colace) 100 mg Q12HR PO 10/07/16 09:00 10/08/16 10:02 (Milk Of [place] Liq) 30 ml Q12H PRN PO 10/07/16 03:15 (Senokot) 17.2 mg Q12H PRN PO 10/07/16 03:15 (Tylenol) 650 mg Q6H PRN PO 10/07/16 03:15 ([place] 5-325 Mg) 1 tab Q4H PRN PO 10/07/16 03:15 ([place] 7.5-325 Mg) 1 tab Q4H PRN PO 10/07/16 03:15 10/08/16 05:49 (Morphine Inj) 1 mg Q3H PRN IV 10/07/16 03:15 (Narcan Inj) 0.4 mg UNSCH PRN IV 10/07/16 03:15 (Protonix) 40 mg DAILY PO 10/07/16 09:00 10/08/16 10:01 (Vasotec Inj) 1.25 mg Q6H PRN IV 10/07/16 03:15 (Catapres) 0.1 mg Q6H PRN PO 10/07/16 03:15 (Lasix Inj) 40 mg DAILY IV PUSH 10/07/16 09:00 10/07/16 08:49 (Xanax) 0.25 mg HS PRN PO 10/07/16 03:15 (Prinivil) 10 mg DAILY PO 10/07/16 09:00 10/07/16 08:49 (Xarelto) 20 mg DAILY PO 10/07/16 09:00 10/08/16 10:02 (Neurontin) 600 mg BID PO 10/07/16 21:00 10/08/16 10:01 (Lopressor) 100 mg BID PO 10/08/16 21:00 Vital Signs / I&O Vital Signs Date Time Temp Pulse Resp B/P Pulse Ox O2 Delivery O2 Flow Rate FiO2 10/08/16 16:01 132 10/08/16 15:45 98.2 98 20 102/73 95 10/08/16 15:00 111 10/08/16 14:01 106 10/08/16 13:00 96 10/08/16 12:57 95 10/08/16 12:01 104 10/08/16 11:13 105 10/08/16 11:12 98.1 101 16 85/45 97 10/08/16 10:01 102 10/08/16 09:15 102 10/08/16 08:00 105 10/08/16 07:40 98.4 105 16 101/50 95 10/08/16 07:00 94 10/08/16 06:00 102 10/08/16 05:00 102 10/08/16 04:00 98 10/08/16 03:00 94 10/08/16 03:00 98.1 98 20 113/75 95 10/08/16 02:00 94 10/08/16 01:00 96 10/08/16 00:00 94 10/07/16 23:00 97.6 98 20 95/62 97 10/07/16 23:00 108 10/07/16 22:00 94 10/07/16 21:00 92 10/07/16 20:00 94 10/07/16 19:00 97.8 95 20 105/65 93 10/07/16 19:00 101 10/07/16 18:01 90 I/O 10/07/16 10/07/16 10/07/16 10/08/16 10/08/16 10/08/16 07:00 15:00 23:00 07:00 15:00 23:00 Intake Total 340 ml 410 ml 240 ml 15 ml Output Total 200 ml 250 ml 200 ml 500 ml Balance -200 ml 90 ml 210 ml 240 ml -485 ml Intake Oral 240 ml 360 ml 240 ml IV Total 100 ml 50 ml 15 ml Output Urine Total 200 ml 250 ml 200 ml 500 ml # Voids 4 1 # Bowel Movements 0 0 Physical Exam GENERAL: In NAD SKIN: Warm and dry. HEAD: Normocephalic. EYES: No scleral icterus. No injection or drainage. NECK: Supple, trachea midline. No JVD or lymphadenopathy. CARDIOVASCULAR: irregular rate and rhythm without murmurs, gallops, or rubs. RESPIRATORY: Breath sounds equal bilaterally. No accessory muscle use. GASTROINTESTINAL: Abdomen soft, non-tender, nondistended. MUSCULOSKELETAL: No cyanosis, trace edema. Laboratory Laboratory Tests Test 10/08/16 06:19 White Blood Count 9.1 TH/MM3 Red Blood Count 3.79 MIL/MM3 Hemoglobin 10.5 GM/DL Hematocrit 32.0 % Mean Corpuscular Volume 84.4 FL Mean Corpuscular Hemoglobin 27.8 PG Mean Corpuscular Hemoglobin 33.0 % Concent Red Cell Distribution Width 15.2 % Platelet Count 183 TH/MM3 Mean Platelet Volume 9.0 FL Neutrophils (%) (Auto) 80.8 % Lymphocytes (%) (Auto) 12.0 % Monocytes (%) (Auto) 5.9 % Eosinophils (%) (Auto) 0.9 % Basophils (%) (Auto) 0.4 % Neutrophils # (Auto) 7.4 TH/MM3 Lymphocytes # (Auto) 1.1 TH/MM3 Monocytes # (Auto) 0.5 TH/MM3 Eosinophils # (Auto) 0.1 TH/MM3 Basophils # (Auto) 0.0 TH/MM3 CBC Comment DIFF FINAL Differential Comment Sodium Level 134 MEQ/L Potassium Level 3.2 MEQ/L Chloride Level 98 MEQ/L Carbon Dioxide Level 27.0 MEQ/L Anion Gap 9 MEQ/L Blood Urea Nitrogen 17 MG/DL Creatinine 0.73 MG/DL Estimat Glomerular Filtration 75 ML/MIN Rate Random Glucose 95 MG/DL Calcium Level 8.2 MG/DL Imaging Last Impressions Chest X-Ray 10/07/1616 Signed Impressions: Service Date/Time: Friday, October 07, 2016 00:31 - CONCLUSION: 1. Vascular indistinctness and hazy opacity in both lungs most characteristic of pulmonary edema. Heart size mildly enlarged. No pneumothorax. Maximus Mike MD Abdomen/Pelvis CT 10/07/1616 Signed Impressions: Service Date/Time: Friday, October 07, 2016 02:02 - CONCLUSION: 1. Small bilateral pleural effusions and basilar air space disease in the lungs, possibly pulmonary edema. No acute findings within the abdomen and pelvis. Maximus Mike MD Assessment and Plan Problem List: (1) Atrial fibrillation with RVR (2) Pulmonary edema (3) HTN (hypertension) (4) Dyslipidemia (5) Status post total left knee replacement (6) MR (mitral regurgitation) (7) CKD (chronic kidney disease) (8) CVA (cerebrovascular accident) Assessment and Plan Continue rate control with metoprolol. Continue anticoagulation with Xarelto, has a fib and a h/o CVA. BP control/afterload reduction for MR. Increase activity. Problem Qualifiers (1) Pulmonary edema: Qualified Code: J81.0 - Acute pulmonary edema Stacia Guido MD Oct 08, 2016 18:01
[2016-10-08] MEDS: METOPROLOL TARTRATE 100 MG TAB PO SCH (21:00)
[2016-10-09] VITALS (31 sets, daily range): BP systolic 87–137; BP diastolic 45–96; PULSE 77–146; RESP 15–17; TEMP 97.6–98.9; O2SAT 96–98
[2016-10-09] MEDS: METOPROLOL TARTRATE 100 MG TAB PO SCH ×2 (08:36→20:30)
[2016-10-09] MEDS: PANTOPRAZOLE SOD 40 MG DELAYED RELEASE TAB PO SCH (08:36)
[2016-10-09] MEDS: DOCUSATE SODIUM 100 MG CAP PO SCH ×2 (08:36→20:30)
[2016-10-09] MEDS: RIVAROXABAN 20 MG TAB PO SCH (08:36)
[2016-10-09] MEDS: LISINOPRIL 10 MG TAB PO SCH (08:36)
[2016-10-09] MEDS: GABAPENTIN 300 MG CAP PO SCH ×2 (08:36→20:30)
[2016-10-09] MEDS: SODIUM CHLORIDE 0.9% FLUSH 5 ML FLUSH FLUSH SCH ×2 (08:37→20:31)
[2016-10-09] MEDS: FUROSEMIDE 40 MG/4 ML VIAL IV PUSH SCH (08:39)
[2016-10-09] MEDS: ACETAMINOPHEN/HYDROcodone 325 MG/7.5 MG TAB PO PRN ×2 (10:16→22:58)
--- NOTE | 2016-10-09 14:06 | PD.CARD.PN ---
Subjective Subjective Remarks No CP or SOB, ambulating in the room Objective Medications Current Medications Medications (Trade) Dose Ordered Sig/Eduin Route Start Time Stop Time Status Last Admin (Nitrostat Sl) 0.4 mg Q5M PRN SL 10/07/16 03:15 (NS Flush) 2 ml UNSCH PRN FLUSH 10/07/16 03:15 (NS Flush) 2 ml BID FLUSH 10/07/16 09:00 10/09/16 08:37 (Tylenol) 650 mg Q4H PRN PO 10/07/16 03:15 (Zofran Inj) 4 mg Q6H PRN IVP 10/07/16 03:15 (Dulcolax Supp) 10 mg DAILY PRN [place] 10/07/16 03:15 (Colace) 100 mg Q12HR PO 10/07/16 09:00 10/09/16 08:36 (Milk Of [place] Liq) 30 ml Q12H PRN PO 10/07/16 03:15 (Senokot) 17.2 mg Q12H PRN PO 10/07/16 03:15 (Tylenol) 650 mg Q6H PRN PO 10/07/16 03:15 ([place] 5-325 Mg) 1 tab Q4H PRN PO 10/07/16 03:15 ([place] 7.5-325 Mg) 1 tab Q4H PRN PO 10/07/16 03:15 10/09/16 10:16 (Morphine Inj) 1 mg Q3H PRN IV 10/07/16 03:15 (Narcan Inj) 0.4 mg UNSCH PRN IV 10/07/16 03:15 (Protonix) 40 mg DAILY PO 10/07/16 09:00 10/09/16 08:36 (Vasotec Inj) 1.25 mg Q6H PRN IV 10/07/16 03:15 (Catapres) 0.1 mg Q6H PRN PO 10/07/16 03:15 (Lasix Inj) 40 mg DAILY IV PUSH 10/07/16 09:00 10/09/16 08:39 (Xanax) 0.25 mg HS PRN PO 10/07/16 03:15 (Prinivil) 10 mg DAILY PO 10/07/16 09:00 10/09/16 08:36 (Xarelto) 20 mg DAILY PO 10/07/16 09:00 10/09/16 08:36 (Neurontin) 600 mg BID PO 10/07/16 21:00 10/09/16 08:36 (Lopressor) 100 mg BID PO 10/08/16 21:00 10/09/16 08:36 Vital Signs / I&O Vital Signs Date Time Temp Pulse Resp B/P Pulse Ox O2 Delivery O2 Flow Rate FiO2 10/09/16 13:00 77 10/09/16 12:00 99 10/09/16 11:00 98.4 96 15 92/57 96 10/09/16 11:00 96 10/09/16 10:00 100 10/09/16 09:00 102 10/09/16 08:00 145 10/09/16 07:00 98.9 119 16 108/55 97 10/09/16 07:00 124 10/09/16 06:00 127 10/09/16 05:31 125 120/77 10/09/16 05:00 114 10/09/16 04:00 114 10/09/16 03:10 97.9 110 17 102/53 96 10/09/16 03:00 123 10/09/16 02:45 135 93/57 10/09/16 02:25 124 115/56 10/09/16 02:17 138 89/54 10/09/16 02:00 115 10/09/16 01:04 118 102/45 10/09/16 01:00 121 10/09/16 00:48 108/55 10/09/16 00:00 119 10/08/16 23:13 98.2 96 16 99/42 97 10/08/16 23:00 96 10/08/16 22:00 112 10/08/16 21:45 93/51 10/08/16 21:44 103/57 10/08/16 21:00 102 10/08/16 20:00 102 10/08/16 19:10 98.0 81 18 114/57 96 10/08/16 19:00 103 10/08/16 18:01 120 10/08/16 17:00 110 10/08/16 16:01 132 10/08/16 15:45 98.2 98 20 102/73 95 10/08/16 15:00 111 I/O 10/08/16 10/08/16 10/08/16 10/09/16 10/09/16 10/09/16 07:00 15:00 23:00 07:00 15:00 23:00 Intake Total 410 ml 240 ml 15 ml 753 ml Output Total 200 ml 500 ml 100 ml Balance 210 ml 240 ml -485 ml 653 ml Intake Oral 360 ml 240 ml 240 ml IV Total 50 ml 15 ml 513 ml Output Urine Total 200 ml 500 ml 100 ml # Voids 1 # Bowel Movements 0 Physical Exam GENERAL: In NAD SKIN: Warm and dry. HEAD: Normocephalic. EYES: No scleral icterus. No injection or drainage. NECK: Supple, trachea midline. No JVD or lymphadenopathy. CARDIOVASCULAR: irregular rate and rhythm without murmurs, gallops, or rubs. RESPIRATORY: Breath sounds equal bilaterally. No accessory muscle use. GASTROINTESTINAL: Abdomen soft, non-tender, nondistended. MUSCULOSKELETAL: No cyanosis, trace edema. Laboratory Last Impressions Chest X-Ray 10/07/1616 Signed Impressions: Service Date/Time: Friday, October 07, 2016 00:31 - CONCLUSION: 1. Vascular indistinctness and hazy opacity in both lungs most characteristic of pulmonary edema. Heart size mildly enlarged. No pneumothorax. Maximus Mike MD Abdomen/Pelvis CT 10/07/1616 Signed Impressions: Service Date/Time: Friday, October 07, 2016 02:02 - CONCLUSION: 1. Small bilateral pleural effusions and basilar air space disease in the lungs, possibly pulmonary edema. No acute findings within the abdomen and pelvis. Maximus Mike MD Laboratory Tests Test 10/07/16 10/07/16 10/08/16 00:20 14:51 06:19 Prothrombin Time 13.8 SEC Prothromb Time International 1.2 RATIO Ratio Activated Partial 31.0 SEC Thromboplast Time Lactic Acid Level 1.8 mmol/L Total Bilirubin 1.4 MG/DL Aspartate Amino Transf 42 U/L (AST/SGOT) Alanine Aminotransferase 26 U/L (ALT/SGPT) Alkaline Phosphatase 49 U/L B-Type Natriuretic Peptide 582 PG/ML Total Protein 7.4 GM/DL Albumin 3.4 GM/DL Lipase 41 U/L Total Creatine Kinase 30 U/L Troponin I 0.03 NG/ML Thyroid Stimulating Hormone 0.510 uIU/ML 3rd Gen White Blood Count 9.1 TH/MM3 Red Blood Count 3.79 MIL/MM3 Hemoglobin 10.5 GM/DL Hematocrit 32.0 % Mean Corpuscular Volume 84.4 FL Mean Corpuscular Hemoglobin 27.8 PG Mean Corpuscular Hemoglobin 33.0 % Concent Red Cell Distribution Width 15.2 % Platelet Count 183 TH/MM3 Mean Platelet Volume 9.0 FL Neutrophils (%) (Auto) 80.8 % Lymphocytes (%) (Auto) 12.0 % Monocytes (%) (Auto) 5.9 % Eosinophils (%) (Auto) 0.9 % Basophils (%) (Auto) 0.4 % Neutrophils # (Auto) 7.4 TH/MM3 Lymphocytes # (Auto) 1.1 TH/MM3 Monocytes # (Auto) 0.5 TH/MM3 Eosinophils # (Auto) 0.1 TH/MM3 Basophils # (Auto) 0.0 TH/MM3 CBC Comment DIFF FINAL Differential Comment Sodium Level 134 MEQ/L Potassium Level 3.2 MEQ/L Chloride Level 98 MEQ/L Carbon Dioxide Level 27.0 MEQ/L Anion Gap 9 MEQ/L Blood Urea Nitrogen 17 MG/DL Creatinine 0.73 MG/DL Estimat Glomerular Filtration 75 ML/MIN Rate Random Glucose 95 MG/DL Calcium Level 8.2 MG/DL Laboratory Tests Test 10/07/16 10/07/16 10/08/16 00:20 14:51 06:19 Prothrombin Time 13.8 SEC Prothromb Time International 1.2 RATIO Ratio Activated Partial 31.0 SEC Thromboplast Time Lactic Acid Level 1.8 mmol/L Total Bilirubin 1.4 MG/DL Aspartate Amino Transf 42 U/L (AST/SGOT) Alanine Aminotransferase 26 U/L (ALT/SGPT) Alkaline Phosphatase 49 U/L B-Type Natriuretic Peptide 582 PG/ML Total Protein 7.4 GM/DL Albumin 3.4 GM/DL Lipase 41 U/L Total Creatine Kinase 30 U/L Troponin I 0.03 NG/ML Thyroid Stimulating Hormone 0.510 uIU/ML 3rd Gen White Blood Count 9.1 TH/MM3 Red Blood Count 3.79 MIL/MM3 Hemoglobin 10.5 GM/DL Hematocrit 32.0 % Mean Corpuscular Volume 84.4 FL Mean Corpuscular Hemoglobin 27.8 PG Mean Corpuscular Hemoglobin 33.0 % Concent Red Cell Distribution Width 15.2 % Platelet Count 183 TH/MM3 Mean Platelet Volume 9.0 FL Neutrophils (%) (Auto) 80.8 % Lymphocytes (%) (Auto) 12.0 % Monocytes (%) (Auto) 5.9 % Eosinophils (%) (Auto) 0.9 % Basophils (%) (Auto) 0.4 % Neutrophils # (Auto) 7.4 TH/MM3 Lymphocytes # (Auto) 1.1 TH/MM3 Monocytes # (Auto) 0.5 TH/MM3 Eosinophils # (Auto) 0.1 TH/MM3 Basophils # (Auto) 0.0 TH/MM3 CBC Comment DIFF FINAL Differential Comment Sodium Level 134 MEQ/L Potassium Level 3.2 MEQ/L Chloride Level 98 MEQ/L Carbon Dioxide Level 27.0 MEQ/L Anion Gap 9 MEQ/L Blood Urea Nitrogen 17 MG/DL Creatinine 0.73 MG/DL Estimat Glomerular Filtration 75 ML/MIN Rate Random Glucose 95 MG/DL Calcium Level 8.2 MG/DL Imaging Last Impressions Chest X-Ray 10/07/1616 Signed Impressions: Service Date/Time: Friday, October 07, 2016 00:31 - CONCLUSION: 1. Vascular indistinctness and hazy opacity in both lungs most characteristic of pulmonary edema. Heart size mildly enlarged. No pneumothorax. Maximus Mike MD Abdomen/Pelvis CT 10/07/1616 Signed Impressions: Service Date/Time: Friday, October 07, 2016 02:02 - CONCLUSION: 1. Small bilateral pleural effusions and basilar air space disease in the lungs, possibly pulmonary edema. No acute findings within the abdomen and pelvis. Maximus Mike MD Assessment and Plan Problem List: (1) Atrial fibrillation with RVR (2) Pulmonary edema (3) HTN (hypertension) (4) Dyslipidemia (5) Status post total left knee replacement (6) MR (mitral regurgitation) (7) CKD (chronic kidney disease) (8) CVA (cerebrovascular accident) Assessment and Plan Continue and titrate rate control with metoprolol. Continue anticoagulation with Xarelto, has a fib and a h/o CVA. BP control/afterload reduction for MR. Increase activity. Problem Qualifiers (1) Pulmonary edema: Qualified Code: J81.0 - Acute pulmonary edema Stacia Guido MD Oct 09, 2016 14:06
[2016-10-09] MEDS ORDERED: POTASSIUM CHLORIDE 20 MEQ CONTROLLED RELEASE TAB PO ONE (14:30)
--- NOTE | 2016-10-09 14:44 | HHI.PR ---
Subjective Remarks Breathing is better. No active shortness of breathoccasional heart palpitations. No complaint of chest pain. Objective Vitals Vital Signs Date Time Temp Pulse Resp B/P Pulse Ox O2 Delivery O2 Flow Rate FiO2 10/09/16 14:00 96 10/09/16 13:00 77 10/09/16 12:00 99 10/09/16 11:00 98.4 96 15 92/57 96 10/09/16 11:00 96 10/09/16 10:00 100 10/09/16 09:00 102 10/09/16 08:00 145 10/09/16 07:00 98.9 119 16 108/55 97 10/09/16 07:00 124 10/09/16 06:00 127 10/09/16 05:31 125 120/77 10/09/16 05:00 114 10/09/16 04:00 114 10/09/16 03:10 97.9 110 17 102/53 96 10/09/16 03:00 123 10/09/16 02:45 135 93/57 10/09/16 02:25 124 115/56 10/09/16 02:17 138 89/54 10/09/16 02:00 115 10/09/16 01:04 118 102/45 10/09/16 01:00 121 10/09/16 00:48 108/55 10/09/16 00:00 119 10/08/16 23:13 98.2 96 16 99/42 97 10/08/16 23:00 96 10/08/16 22:00 112 10/08/16 21:45 93/51 10/08/16 21:44 103/57 10/08/16 21:00 102 10/08/16 20:00 102 10/08/16 19:10 98.0 81 18 114/57 96 10/08/16 19:00 103 10/08/16 18:01 120 10/08/16 17:00 110 10/08/16 16:01 132 10/08/16 15:45 98.2 98 20 102/73 95 10/08/16 15:00 111 I/O 10/08/16 10/08/16 10/08/16 10/09/16 10/09/16 10/09/16 07:00 15:00 23:00 07:00 15:00 23:00 Intake Total 410 ml 240 ml 15 ml 753 ml Output Total 200 ml 500 ml 100 ml Balance 210 ml 240 ml -485 ml 653 ml Intake Oral 360 ml 240 ml 240 ml IV Total 50 ml 15 ml 513 ml Output Urine Total 200 ml 500 ml 100 ml # Voids 1 # Bowel Movements 0 Result Diagram: 10/08/1661810/08/16618 Objective Remarks GENERAL: This is a well-nourished, well-developed patient, in no apparent distress. CARDIOVASCULAR: Regular rate and irregular rhythm with 2/6 systolic ejection murmur RESPIRATORY: Clear to auscultation. Breath sounds equal bilaterally. No wheezes , rales, or rhonchi. GASTROINTESTINAL: Abdomen soft, non-tender, nondistended. Normal, active bowel sounds MUSCULOSKELETAL: Extremities without clubbing, cyanosis, trace edema NEURO: Alert & Oriented x4 to person, place, time, situation. Moves all ext x4 A/P Problem List: (1) Atrial fibrillation with RVR ICD Code: I48.91 Status: Acute (2) Pulmonary edema ICD Code: J81.1 Status: Acute Assessment and Plan This is a 86-year-old female Atrial fib with RVR. - ECHO showed LVH, mod to severe mitral regurgitation, mod tricuspid regurgitation with EF of 50-35% -Titrating off Cardizem drip now with metoprolol 100 mg by mouth twice a day, however nursing staff did not give medication twice a day over the past 24 hours due to parameters written by previous physician for holding the medication for systolic blood pressure less than 110. Will adjust parameters and decreased other antihypertensives. Patient had elevated heart rate in the 140s overnight and will continue with metoprolol 100 mg by mouth twice a day. Continue with anti-coagulation xarelto. Cardiology Dr. Guido following. History hypertension, chronic essentialat this time will decrease lisinopril to 2.5 mg by mouth daily, IV Vasotec when necessary for blood pressure control. Hyperlipidemiaresume statin Hypokalemiareplete Acute diastolic congestive heart failure with pulmonary edemaimproved on IV Lasix was switched to by mouth Chronic medical conditions of Arthritis, skin cancer, hyperlipidemia, CVA, gastric ulcer, GERD, stress incontinence, chronic kidney disease stage II anemia , osteoporosis, fibromyalgia and anxiety. -Continue outpatient medications as appropriate, currently stable. DVT prophylaxis with SCD and Xarelto Discharge Planning Discharge to home if heart rate better control in the morning. Problem Qualifiers (1) Pulmonary edema: Qualified Code: J81.0 - Acute pulmonary edema Chhaya Nunes MD Oct 09, 2016 14:43
[2016-10-09] MEDS ORDERED: PILL SPLITTER OTHER PRN (14:45)
[2016-10-09] MEDS: ALPRAZolam 0.25 MG TAB PO PRN (23:57)
[2016-10-10] VITALS (24 sets, daily range): BP systolic 98–131; BP diastolic 60–83; PULSE 72–126; RESP 16; TEMP 97.8–98.3; O2SAT 96–97
[2016-10-10] MEDS ORDERED: LISINOPRIL 5 MG TAB PO SCH (09:00)
--- NOTE | 2016-10-10 09:18 | HHI.PR ---
Subjective Remarks Patient had palpitations yesterday evening had difficulty sleeping. Nursing staff states that heart rate went up to the 140s around 2300 and did not settle down after 1 AM. Nursing staff also commented after patient's placed back to the oxygen, he is noticed improvement with heart rate. She denies any chest pain or shortness of breath. Nursing staff did administering the metoprolol at 2100. Objective Vitals Vital Signs Date Time Temp Pulse Resp B/P Pulse Ox O2 Delivery O2 Flow Rate FiO2 10/10/16 03:00 97.8 90 103/63 97 10/09/16 23:00 98.0 146 16 128/86 96 10/09/16 19:00 98.3 113 137/96 96 10/09/16 18:00 112 10/09/16 17:00 91 10/09/16 16:00 96 10/09/16 15:00 97.6 101 17 87/54 98 10/09/16 15:00 80 10/09/16 14:00 96 10/09/16 13:00 77 10/09/16 12:00 99 10/09/16 11:00 98.4 96 15 92/57 96 10/09/16 11:00 96 10/09/16 10:00 100 I/O 10/09/16 10/09/16 10/09/16 10/10/16 10/10/16 10/10/16 07:00 15:00 23:00 07:00 15:00 23:00 Intake Total 753 ml 720 ml 780 ml Output Total 100 ml 600 ml 800 ml Balance 653 ml 120 ml -20 ml Intake Oral 240 ml 720 ml 480 ml IV Total 513 ml 300 ml Output Urine Total 100 ml 600 ml 800 ml # Bowel Movements 1 Result Diagram: 10/08/1661810/08/16618 Objective Remarks GENERAL: This is a well-nourished, well-developed patient, in no apparent distress. CARDIOVASCULAR: Regular rate and irregular rhythm with 2/6 systolic ejection murmur RESPIRATORY: Clear to auscultation. Breath sounds equal bilaterally. No wheezes , rales, or rhonchi. GASTROINTESTINAL: Abdomen soft, non-tender, nondistended. Normal, active bowel sounds MUSCULOSKELETAL: Extremities without clubbing, cyanosis, trace edema NEURO: Alert & Oriented x4 to person, place, time, situation. Moves all ext x4 A/P Problem List: (1) Atrial fibrillation with RVR ICD Code: I48.91 Status: Acute (2) Pulmonary edema ICD Code: J81.1 Status: Acute Assessment and Plan This is a 86-year-old female Atrial fib with RVR. - ECHO showed LVH, mod to severe mitral regurgitation, mod tricuspid regurgitation with EF of 50-35% -Currently heart rate still is not controlled metoprolol 100 mg by mouth twice a day off the Cardizem drip, Patient had elevated heart rate in the 140s overnight and will continue with metoprolol 100 mg by mouth twice a day and add by mouth Cardizem and monitor blood pressure closely as patient has borderline hypertension. Continue with anti-coagulation xarelto. Cardiology Dr. Guido following and await further recommendations. Discharge will need to be on hold heart rate being uncontrolled. History hypertension, chronic essentialat this time will discontinue lisinopril to 2.5 mg by mouth daily due to borderline blood pressure issues Hyperlipidemiaresume statin Hypokalemiareplete Acute diastolic congestive heart failure with pulmonary edemaimproved on IV Lasix was switched to by mouth yesterday and will monitor. Obtain a walk fit test today Chronic medical conditions of Arthritis, skin cancer, hyperlipidemia, CVA, gastric ulcer, GERD, stress incontinence, chronic kidney disease stage II anemia , osteoporosis, fibromyalgia and anxiety. -Continue outpatient medications as appropriate, currently stable. DVT prophylaxis with SCD and Xarelto Discharge Planning Discharge to home if heart rate better control in the morning. Await further recommendation as per Dr. Guido Problem Qualifiers (1) Pulmonary edema: Qualified Code: J81.0 - Acute pulmonary edema Chhaya Nunes MD Oct 10, 2016 09:18
[2016-10-10] MEDS: POTASSIUM CHLORIDE 20 MEQ CONTROLLED RELEASE TAB PO SCH (09:33)
[2016-10-10] MEDS: RIVAROXABAN 20 MG TAB PO SCH (09:34)
[2016-10-10] MEDS: METOPROLOL TARTRATE 100 MG TAB PO SCH ×2 (09:34→21:07)
[2016-10-10] MEDS: FUROSEMIDE 40 MG TAB PO SCH (09:34)
[2016-10-10] MEDS: DOCUSATE SODIUM 100 MG CAP PO SCH ×2 (09:34→21:07)
[2016-10-10] MEDS: PANTOPRAZOLE SOD 40 MG DELAYED RELEASE TAB PO SCH (09:34)
[2016-10-10] MEDS: GABAPENTIN 300 MG CAP PO SCH ×2 (09:35→21:07)
[2016-10-10] MEDS: SODIUM CHLORIDE 0.9% FLUSH 5 ML FLUSH FLUSH SCH ×2 (09:35→21:07)
[2016-10-10] MEDS: ACETAMINOPHEN/HYDROcodone 325 MG/7.5 MG TAB PO PRN ×4 (09:42→23:25)
[2016-10-10 11:26] LABS: BICARBONATE 27.2 MEQ/L (21.0-32.0); POTASSIUM 3.9 MEQ/L (3.5-5.1)
[2016-10-10] MEDS: DILTIAZEM HCL 30 MG TAB PO SCH ×2 (13:00→18:21)
[2016-10-10] MEDS: DIGOXIN 0.25 MG TAB PO SCH (13:03)
--- NOTE | 2016-10-10 13:41 | PD.CARD.PN ---
Subjective Subjective Remarks No CP or SOB, feels fine Objective Medications Current Medications Medications (Trade) Dose Ordered Sig/Eduin Route Start Time Stop Time Status Last Admin (Nitrostat Sl) 0.4 mg Q5M PRN SL 10/07/16 03:15 (NS Flush) 2 ml UNSCH PRN FLUSH 10/07/16 03:15 (NS Flush) 2 ml BID FLUSH 10/07/16 09:00 10/10/16 09:35 (Tylenol) 650 mg Q4H PRN PO 10/07/16 03:15 (Zofran Inj) 4 mg Q6H PRN IVP 10/07/16 03:15 (Dulcolax Supp) 10 mg DAILY PRN DC 10/07/16 03:15 (Colace) 100 mg Q12HR PO 10/07/16 09:00 10/10/16 09:34 (Milk Of [place] Liq) 30 ml Q12H PRN PO 10/07/16 03:15 (Senokot) 17.2 mg Q12H PRN PO 10/07/16 03:15 (Tylenol) 650 mg Q6H PRN PO 10/07/16 03:15 (Trimont 5-325 Mg) 1 tab Q4H PRN PO 10/07/16 03:15 (Trimont 7.5-325 Mg) 1 tab Q4H PRN PO 10/07/16 03:15 10/10/16 13:02 (Morphine Inj) 1 mg Q3H PRN IV 10/07/16 03:15 (Narcan Inj) 0.4 mg UNSCH PRN IV 10/07/16 03:15 (Protonix) 40 mg DAILY PO 10/07/16 09:00 10/10/16 09:34 (Vasotec Inj) 1.25 mg Q6H PRN IV 10/07/16 03:15 (Catapres) 0.1 mg Q6H PRN PO 10/07/16 03:15 (Xanax) 0.25 mg HS PRN PO 10/07/16 03:15 10/09/16 23:57 (Xarelto) 20 mg DAILY PO 10/07/16 09:00 10/10/16 09:34 (Neurontin) 600 mg BID PO 10/07/16 21:00 10/10/16 09:35 (Lopressor) 100 mg BID PO 10/08/16 21:00 10/10/16 09:34 (Prinivil) 2.5 mg DAILY PO 10/10/16 09:00 Hold (Lasix) 40 mg DAILY PO 10/10/16 09:00 10/10/16 09:34 (KCl) 20 meq DAILY PO 10/10/16 09:00 10/10/16 09:33 (Pill Splitter) 1 ea UNSCH PRN OTHER 10/09/16 14:45 (Cardizem) 30 mg TID PO 10/10/16 13:00 10/10/16 13:00 (Lanoxin) 0.25 mg DAILY PO 10/10/16 13:00 10/10/16 13:03 Vital Signs / I&O Vital Signs Date Time Temp Pulse Resp B/P Pulse Ox O2 Delivery O2 Flow Rate FiO2 10/10/16 12:00 108 10/10/16 11:00 96 10/10/16 11:00 98.1 96 98/60 96 10/10/16 10:00 126 10/10/16 09:00 104 10/10/16 08:00 110 10/10/16 07:00 88 10/10/16 07:00 97.9 82 105/66 97 10/10/16 06:00 88 10/10/16 05:00 94 10/10/16 04:00 92 10/10/16 03:00 97.8 90 103/63 97 10/10/16 03:00 101 10/10/16 02:00 112 10/10/16 01:00 118 10/10/16 00:00 122 10/09/16 23:00 146 10/09/16 23:00 98.0 146 16 128/86 96 10/09/16 22:00 110 10/09/16 21:00 108 10/09/16 20:00 120 10/09/16 19:00 103 10/09/16 19:00 98.3 113 137/96 96 10/09/16 18:00 112 10/09/16 17:00 91 10/09/16 16:00 96 10/09/16 15:00 97.6 101 17 87/54 98 10/09/16 15:00 80 10/09/16 14:00 96 I/O 10/09/16 10/09/16 10/09/16 10/10/16 10/10/16 10/10/16 07:00 15:00 23:00 07:00 15:00 23:00 Intake Total 753 ml 720 ml 480 ml Output Total 100 ml 600 ml 800 ml Balance 653 ml 120 ml -320 ml Intake Oral 240 ml 720 ml 480 ml IV Total 513 ml Output Urine Total 100 ml 600 ml 800 ml # Bowel Movements 1 Physical Exam GENERAL: In NAD SKIN: Warm and dry. HEAD: Normocephalic. EYES: No scleral icterus. No injection or drainage. NECK: Supple, trachea midline. No JVD or lymphadenopathy. CARDIOVASCULAR: irregular rate and rhythm without murmurs, gallops, or rubs. RESPIRATORY: Breath sounds equal bilaterally. No accessory muscle use. GASTROINTESTINAL: Abdomen soft, non-tender, nondistended. MUSCULOSKELETAL: No cyanosis, trace edema. Laboratory Laboratory Tests Test 10/10/16 10:38 Sodium Level 140 MEQ/L Potassium Level 3.9 MEQ/L Chloride Level 104 MEQ/L Carbon Dioxide Level 27.2 MEQ/L Anion Gap 9 MEQ/L Blood Urea Nitrogen 12 MG/DL Creatinine 0.65 MG/DL Estimat Glomerular Filtration 86 ML/MIN Rate Random Glucose 89 MG/DL Calcium Level 8.7 MG/DL Imaging Last Impressions Chest X-Ray 10/07/1616 Signed Impressions: Service Date/Time: Friday, October 07, 2016 00:31 - CONCLUSION: 1. Vascular indistinctness and hazy opacity in both lungs most characteristic of pulmonary edema. Heart size mildly enlarged. No pneumothorax. Maximus Mike MD Abdomen/Pelvis CT 10/07/1616 Signed Impressions: Service Date/Time: Friday, October 07, 2016 02:02 - CONCLUSION: 1. Small bilateral pleural effusions and basilar air space disease in the lungs, possibly pulmonary edema. No acute findings within the abdomen and pelvis. Maximus Mike MD Assessment and Plan Problem List: (1) Atrial fibrillation with RVR (2) Pulmonary edema (3) HTN (hypertension) (4) Dyslipidemia (5) Status post total left knee replacement (6) MR (mitral regurgitation) (7) CKD (chronic kidney disease) (8) CVA (cerebrovascular accident) Assessment and Plan Continue and titrate rate control with metoprolol, add digoxin, switch diltiazem to long acting 120 mg daily. Continue anticoagulation with Xarelto, has a fib and a h/o CVA. BP control/afterload reduction for MR. Increase activity. OK to discharge. Will schedule f/u w me as outpatient. Problem Qualifiers (1) Pulmonary edema: Qualified Code: J81.0 - Acute pulmonary edema Stacia Guido MD Oct 10, 2016 13:41
[2016-10-10] MEDS: ALPRAZolam 0.25 MG TAB PO PRN (23:25)
[2016-10-11] VITALS (8 sets, daily range): BP systolic 122; BP diastolic 74; PULSE 60–83; RESP 16; O2SAT 97
[2016-10-11] MEDS ORDERED: DILTIAZEM-CD 120 MG CAP ER PO SCH (09:00)
[2016-10-11] MEDS: FUROSEMIDE 40 MG TAB PO SCH (09:24)
[2016-10-11] MEDS: PANTOPRAZOLE SOD 40 MG DELAYED RELEASE TAB PO SCH (09:24)
[2016-10-11] MEDS: POTASSIUM CHLORIDE 20 MEQ CONTROLLED RELEASE TAB PO SCH (09:24)
[2016-10-11] MEDS: GABAPENTIN 300 MG CAP PO SCH (09:24)
[2016-10-11] MEDS: DIGOXIN 0.25 MG TAB PO SCH (09:25)
[2016-10-11] MEDS: RIVAROXABAN 20 MG TAB PO SCH (09:25)
[2016-10-11] MEDS: DOCUSATE SODIUM 100 MG CAP PO SCH (09:25)
[2016-10-11] MEDS: ACETAMINOPHEN/HYDROcodone 325 MG/7.5 MG TAB PO PRN (09:28)
[2016-10-11] MEDS ORDERED: METO100T PO (09:44)
[2016-10-11] MEDS ORDERED: CARD120C4 PO (09:44)
[2016-10-11] MEDS ORDERED: DIGO0.12 PO (09:44)
[2016-10-11] MEDS ORDERED: DILT-60 PO (10:36)
[2016-10-11] MEDS ORDERED: DIGO0.25 PO (10:36)
[2016-10-11] MEDS ORDERED: METO-338 PO (10:36)
[2016-10-11] MEDS ORDERED: FURO20TA PO (14:49)
--- NOTE | 2016-10-11 14:53 | HHI.DS ---
Discharge Summary Admission Date Oct 07, 2016 at 03:10 Discharge Date: Oct 11, 2016 Admitting Diagnosis A. fib with RVR, pulmonary edema (1) Atrial fibrillation with RVR ICD Code: I48.91 (2) Pulmonary edema ICD Code: J81.1 Procedures No invasive procedures. Brief History - From Admission This is a 86-year-old female brought in by EMS from home for evaluation of generalized malaise, nausea, vomiting, abdominal pain and shortness of breath. The patient has had pleuritic lower chest/epigastric pains and shortness of breath when she takes a deep breath for the past week associated with palpitations. Today she also complained of generalized malaise, nausea and vomiting. In the emergency department, she was found to be in A. fib with RVR and received 2 boluses of IV Cardizem and still in RVR. She reports history of A. fib and is on Xarelto and metoprolol. She has been compliant with her medical therapy. Patient has orthopnea, dyspnea on exertion and ankle swelling. Denies anginal pains. CBC/BMP: 10/08/16 0619 10/10/16 1038 Significant Findings Laboratory Tests Test 10/10/16 10:38 Estimat Glomerular Filtration 86 ML/MIN (>89) Rate Imaging GENERAL: Patient sitting in chair. Appears comfortable. Alert and oriented 3. SKIN: Warm and dry. HEAD: Normocephalic. EYES: No scleral icterus. No injection or drainage. NECK: Supple, trachea midline. No JVD. CARDIOVASCULAR: Irregularly irregular. Rate controlled. Without murmurs, gallops, or rubs. RESPIRATORY: Breath sounds equal bilaterally. No accessory muscle use. GASTROINTESTINAL: Abdomen soft, non-tender, nondistended. MUSCULOSKELETAL: No cyanosis, or edema. BACK: Nontender without obvious deformity. No CVA tenderness. PE at Discharge GENERAL: This is a well-nourished, well-developed patient, in no apparent distress. CARDIOVASCULAR: Regular rate and irregular rhythm with 2/6 systolic ejection murmur RESPIRATORY: Clear to auscultation. Breath sounds equal bilaterally. No wheezes , rales, or rhonchi. GASTROINTESTINAL: Abdomen soft, non-tender, nondistended. Normal, active bowel sounds MUSCULOSKELETAL: Extremities without clubbing, cyanosis, trace edema NEURO: Alert & Oriented x4 to person, place, time, situation. Moves all ext x4 Pt update on day of discharge She says she feels well. Would like to go home. Denies any chest pain or shortness of breath. Denies any palpitations. Hospital Course This is a 86-year-old female presented with atrial fibrillation, with RVR. Rapid ventricular rate improved with adjusting metoprolol, diltiazem, heading digoxin. She'll need to follow-up with primary care, cardiology as outpatient. Patient did have pulmonary edema on admission, which improved with heart rate control, as well as diuresis. She will continue on Lasix. For problem-based summary for most recent progress note, please see below. //Atrial fib with RVR. - ECHO showed LVH, mod to severe mitral regurgitation, mod tricuspid regurgitation with EF of 50-35% -Heart rate now controlled, consistently below 110 -Continue metoprolol, Cardizem, digoxin as per cardiology //History hypertension, chronic essential -Initially held lisinopril due to blood pressure issues, however this was with tachycardia. -With heart rate under control, blood pressure has improved. We'll continue lisinopril as outpatient. //Hyperlipidemiacontinue statin //Hypokalemiaresolved. Expect to improve with resumption of lisinopril. //Acute diastolic congestive heart failure with pulmonary edema -Improved with heart rate control, Lasix. -Expect that pulmonary issues were secondary to uncontrolled heart rate. Expect to improve with controlled heart rate. Will call in Lasix 20 mg daily. Follow-up cardiology. //Chronic medical conditions of Arthritis, skin cancer, hyperlipidemia, CVA, gastric ulcer, GERD, stress incontinence, chronic kidney disease stage II anemia , osteoporosis, fibromyalgia and anxiety. -Continue outpatient medications as appropriate, currently stable. Prophylaxis. SCDs and Xarelto. Pt Condition on Discharge: Good Discharge Disposition: Discharge Home Discharge Time: > 30 minutes Discharge Instructions DIET: Follow Instructions for: Heart Healthy Diet Activities you can perform: Regular-No Restrictions Follow up Referrals: Cardiology - 1 Week with Stacia Guido MD PCP Follow-up - 1 Week with Tim Abebe M.d. New Orders: DIGOXIN - 1 Week New Medications: Diltiazem CD 24 HR (Diltiazem CD 24 HR) 120 Mg Caper 120 MG PO DAILY #30 Ref 0 CAP Furosemide (Furosemide) 20 Mg Tab 20 MG PO DAILY heart #30 Ref 0 TAB Digoxin (Digoxin) 0.25 Mg Tab 0.25 MG PO DAILY heart #30 TAB Metoprolol Tartrate (Lopressor) 100 Mg Tab 100 MG PO BID heart #60 TAB Continued Medications: Alprazolam (Xanax) 0.25 Mg Tab 0.25 MG PO HS PRN ANXIETY Ref 0 TAB Coconut Oil (Bulk) (Coconut Oil) Oil 15 ML PO DAILY ML Gabapentin (Gabapentin) 600 Mg Tab 600 MG PO TID #90 Ref 0 TAB Hydrocodone-Acetaminophen ([place]) 10-325 Mg Tab 1 TAB PO Q4H PRN PAIN Ref 0 TAB Lisinopril (Lisinopril) 10 Mg Tab 10 MG PO DAILY #30 Ref 0 TAB Omeprazole 20 mg (Omeprazole 20 mg) 20 Mg Tab 1 TAB PO BID TAB Potassium Chloride (Potassium Chloride Er) 10 Meq Tab 10 MEQ PO DAILY TAB Rivaroxaban (Xarelto) 20 Mg Tab 20 MG PO DAILY Blood Clot Prevention Ref 0 TAB Simvastatin 20 mg (Simvastatin 20 mg) 20 Mg Tab 20 MG PO HS TAB Discontinued Medications: Omeprazole (Omeprazole) 20 Mg Tab 20 MG PO DAILY #30 Ref 0 TAB Sodium Chloride (External) (Sodium Chloride) Unknown Strength Tab Unknown Dose PO DAILY TAB Jayesh Moser MD Oct 11, 2016 14:53
== END 2016-10-11 14:10 | disposition home or self-care (01) | DRG 310 ==
LOC: NEPE 23:58 → NEDA 10-07 03:10 → HCIN 10-07 05:16
PROVIDERS: ADMIT Family Medicine; ATTEND Internal Medicine
DX: I48.91 Unspecified atrial fibrillation (principal); D64.9 Anemia, unspecified; I12.9 Hypertensive chronic kidney disease with stage 1 through stage 4 chronic kidney disease, or unspecified chronic kidney disease; E78.5 Hyperlipidemia, unspecified; C44.90 Unspecified malignant neoplasm of skin, unspecified; N18.2 Chronic kidney disease, stage 2 (mild); K21.9 Gastro-esophageal reflux disease without esophagitis; N39.3 Stress incontinence (female) (male); M81.0 Age-related osteoporosis without current pathological fracture; M79.7 Fibromyalgia; F41.9 Anxiety disorder, unspecified; Z96.652 Presence of left artificial knee joint; M19.90 Unspecified osteoarthritis, unspecified site; Z85.828 Personal history of other malignant neoplasm of skin; Z86.73 Personal history of transient ischemic attack (TIA), and cerebral infarction without residual deficits; Z87.11 Personal history of peptic ulcer disease
CPT/HCPCS: 71010; 74177; 76937; 80048; 80053; 82550; 83605; 83690; 83880; 84443; 84484; 85025; 85610; 85730; 87040; 93005; 93306; 94620; 94640; 94664; 96361; 96374; 96376; J1940; J7030; Q9967

== ENCOUNTER 2016-10-18 16:32 | Inpatient (IN) | payer MEDICARE, OTHER ==
[~2016-10-18] VITALS: Ht 160 cm; Wt 65.7 kg
[~2016-10-18 16:32] MED LIST changes: -ASPI81TA82 PO; +DIGO0.25 PO; +DILT-60 PO; +FURO20TA PO; +HYDR-3366 PO; -HYDR-3535 PO; -LISI-360 PO; +LISI10TA3 PO; +METO-338 PO; -METO100T9 PO; -NORC10TA2 PO; -RIVA20 PO; -SODI1000 PO; +XARE20TA PO
[2016-10-18 16:45] VITALS: BP 99/63; PULSE 54; RESP 18; TEMP 97.8; O2SAT 97
[2016-10-18] MEDS ORDERED: SODIUM CHLOR 0.9% 1000 ML INJ 1,000 ML IV SCH (17:24)
--- NOTE | 2016-10-18 18:03 | RADRPT ---
EXAM DATE/TIME: 10/18/2016 17:50 [facility] COMPARISON: CHEST SINGLE AP, October 07, 2016, 0:31. CHEST SINGLE AP, September 12, 2014, 8:56. INDICATIONS : Syncope. MEDICAL HISTORY : None. SURGICAL HISTORY : None. ENCOUNTER: Initial ACUITY: 1 day PAIN SCORE: 0/10 LOCATION: Bilateral chest FINDINGS: Mild right mid and lower lung atelectasis and mild patchy airspace opacities of the left base. Small, bilateral pleural effusions are likely. I don't see a pneumothorax. Heart size stable and within normal limits. Thoracic aorta is tortuous. Chronic elevation of the righ t hemidiaphragm. CONCLUSION: Bibasilar consolidation and small effusions. Elevated right hemidiaphragm, chronic. Seth Taveras MD on October 18, 2016 at 18:00 Board Certified Radiologist. This report was verified electronically.
[2016-10-18 18:05] VITALS: BP 117/55; PULSE 54; RESP 18; O2SAT 97
--- NOTE | 2016-10-18 18:20 | PD ---
HPI Chief Complaint: GI Complaint Time Seen by Provider: 18:09 Travel History International Travel<30 days: No Contact w/Intl Traveler<30days: No Traveled to known affect area: No History of Present Illness HPI 86-year-old female with history of previous CVA, Eula underwood currently on Xarelto, was admitted last week due to slow Eula underwood, presents to the ER today because she states that she is having general weakness for the past week, today woke up fairly nauseous, vomiting, and felt like the room was spinning, felt like she was going to pass out. She denies any chest pains, shortness of breath, black stools, abdominal pain, diarrhea, or any other symptoms. She denies any fevers or sick contacts. Modifying Factors: None Associated Signs & Symptoms: General weakness, near syncope, nausea, vomiting Risk Factors: None PFSH Past Medical History Hx Anticoagulant Therapy: Yes (XARELTO) Arthritis: Yes Atrial Fibrillation: Yes (XARELTO) Blood Disorders: No Cancer: Yes (SKIN) Cardiovascular Problems: Yes (Eula UNDERWOOD, "LEAKY VALVES") High Cholesterol: Yes Chemotherapy: No Cerebrovascular Accident: Yes Diabetes: No Diminished Hearing: No Endocrine: No Gastrointestinal Disorders: Yes (HX MED INDUCED GASTRIC ULCER, GERD) Genitourinary: Yes (STRESS INCONTINENCE, STAGE II FAILURE) Headaches: No Hepatitis: No Hiatal Hernia: No Hypertension: Yes Immune Disorder: No Implanted Vascular Access Dvce: No Medical other: Yes (ANEMIA) Musculoskeletal: Yes (ARTHRITIS, OSTEOPOROSIS, FIBROMYALGIA) Neurologic: Yes (TIA) Psychiatric: Yes (ANXIETY) Reproductive: No Respiratory: No Integumentary: Yes (PREVIOUS SKIN CANCER) Immunizations Current: Yes Radiation Therapy: No Thyroid Disease: No PNEUMOCCOCAL Vaccine (Year): 1 Menopausal: Yes Past Surgical History Abdominal Surgery: No AICD: No Appendectomy: Yes Arteriovenous Shunt: No Body Medical Devices: LEFT CORNEA Cardiac Surgery: No Ear Surgery: No Endocrine Surgery: No Eye Surgery: Yes (MARION. CATARACT EXTRACT., LEFT CORNEA TRANSPL.) Genitourinary Surgery: No Gynecologic Surgery: Yes (HYSTERECTOMY) Hysterectomy: Yes Insulin Pump: No Joint Replacement: No Neurologic Surgery: No Oral Surgery: Yes (T&A) Pacemaker: No Thoracic Surgery: No Tonsillectomy: Yes Other Surgery: Yes Social History Alcohol Use: No Tobacco Use: No Substance Use: No Allergies-Medications (Allergen,Severity, Reaction): Coded Allergies: Cymbalta (Verified Adverse Reaction, Severe, HYPERTENSION, 10/07/16) Reported Meds & Prescriptions Reported Meds & Active Scripts Active Furosemide 20 Mg Tab 20 Mg PO DAILY Diltiazem CD 24 HR 120 Mg Caper 120 Mg PO DAILY Digoxin 0.25 Mg Tab 0.25 Mg PO DAILY Lopressor (Metoprolol Tartrate) 100 Mg Tab 100 Mg PO BID Reported Omeprazole 20 Mg Tab 20 Mg PO BID K-Tab (Potassium Chloride) 10 Meq Tab 10 Meq PO DAILY Simvastatin 20 Mg Tab 20 Mg PO HS Xarelto (Rivaroxaban) 20 Mg Tab 20 Mg PO DAILY Lisinopril 10 Mg Tab 10 Mg PO DAILY [place] (Hydrocodone-Acetaminophen) 10-325 Mg Tab 1 Tab PO Q4H PRN Gabapentin 600 Mg Tab 600 Mg PO TID Xanax (Alprazolam) 0.25 Mg Tab 0.25 Mg PO HS PRN Review of Systems Except as stated in HPI: all other systems reviewed are Neg Physical Exam Narrative GENERAL: Elderly white female patient who appears pale, awake, alert, oriented 3. SKIN: Warm and dry. HEAD: Atraumatic. Normocephalic. EYES: Pupils equal and round. No scleral icterus. No injection or drainage. ENT: No nasal bleeding or discharge. Mucous membranes pink and moist. NECK: Trachea midline. No JVD. CARDIOVASCULAR: Regular rate and rhythm. No murmur appreciated. RESPIRATORY: No accessory muscle use. Clear to auscultation. Breath sounds equal bilaterally. GASTROINTESTINAL: Abdomen soft, non-tender, nondistended. Hepatic and splenic margins not palpable. RECTAL EXAM: No masses or tenderness, stool is brown. Hemoccult negative. MUSCULOSKELETAL: No obvious deformities. No clubbing. No cyanosis. No edema. NEUROLOGICAL: Awake and alert. No obvious cranial nerve deficits. Motor grossly within normal limits. Normal speech. PSYCHIATRIC: Appropriate mood and affect; insight and judgment normal. Data Data Last Documented VS Vital Signs Date Time Temp Pulse Resp B/P Pulse Ox O2 Delivery O2 Flow Rate FiO2 10/18/16 18:05 97 Nasal Cannula 2 10/18/16 18:05 54 18 117/55 10/18/16 16:45 97.8 Orders Electrocardiogram (10/18/16 ) Complete Blood Count With Diff (10/18/16 17:24) Comprehensive Metabolic Panel (10/18/16 17:24) Lipase (10/18/16 17:24) Lactic Acid (10/18/16 17:24) Prothrombin Time / Inr (Pt) (10/18/16:) Act Partial Throm Time (Ptt) (10/18/16:) Urinalysis - C+S If Indicated (10/18/16:24) Ct Abd/Pel W Iv Contrast(Rout) (10/18/16:24) Iv Access Insert/Monitor (10/18/16:24) Ecg Monitoring (10/18/16:) Oximetry (10/18/16:) NPO (10/18/16:) Sodium Chlor 0.9% 1000 Ml Inj (Ns 1000 M (10/18/16:) Ct Brain W/O Iv Contrast(Rout) (10/18/16 17:31) Troponin I (10/18/16 17:31) Ckmb (Isoenzyme) Profile (10/18/16 17:31) Lactic Acid (10/18/16 17:41) Chest, Single Ap (10/18/16 ) Resp Lab Draw Arterial Punctur (10/18/16 ) Digoxin (10/18/16 18:51) Labs Laboratory Tests Test 10/18/16 18:19 White Blood Count 8.4 TH/MM3 Red Blood Count 3.79 MIL/MM3 Hemoglobin 10.4 GM/DL Hematocrit 32.5 % Mean Corpuscular Volume 85.7 FL Mean Corpuscular Hemoglobin 27.3 PG Mean Corpuscular Hemoglobin 31.9 % Concent Red Cell Distribution Width 15.1 % Platelet Count 186 TH/MM3 Mean Platelet Volume 10.0 FL Neutrophils (%) (Auto) 80.8 % Lymphocytes (%) (Auto) 11.1 % Monocytes (%) (Auto) 6.5 % Eosinophils (%) (Auto) 1.2 % Basophils (%) (Auto) 0.4 % Neutrophils # (Auto) 6.8 TH/MM3 Lymphocytes # (Auto) 0.9 TH/MM3 Monocytes # (Auto) 0.5 TH/MM3 Eosinophils # (Auto) 0.1 TH/MM3 Basophils # (Auto) 0.0 TH/MM3 CBC Comment DIFF FINAL Differential Comment MDM Medical Decision Making Medical Screen Exam Complete: Yes Emergency Medical Condition: Yes Medical Record Reviewed: Yes Interpretation(s) EKG shows A. fib with slow ventricular response at a rate of 50 bpm with no signs of acute ST-T elevations or depressions Laboratory Tests Test 10/18/16 18:19 Red Blood Count 3.79 MIL/MM3 (4.00-5.30) Hemoglobin 10.4 GM/DL (11.6-15.3) Hematocrit 32.5 % (35.0-46.0) Mean Corpuscular Hemoglobin 31.9 % Concent (32.0-36.0) Neutrophils (%) (Auto) 80.8 % (16.0-70.0) Lymphocytes # (Auto) 0.9 TH/MM3 (1.0-4.8) Differential Diagnosis General weakness, near-syncope, nausea and vomitingdehydration versus metabolic issues versus GI bleed versus gastroenteritis versus dysrhythmias versus ACS Narrative Course Initial EKG shows A. fib with slow ventricular response at a rate of 50 bpm. Lab work and initial workup was ordered on patient. IV fluids ordered. HemaPrompt Point of Care Internal Pos. & Neg. Controls: Passed Fecal Specimen Occult Blood: Negative Physician Communication Physician Communication Case is signed out to Dr. Walker at 7 PM pending workup. Planning for admission. Diagnosis Primary Impression: Near syncope Admitting Information Admitting Physician Requests: Admit Roberta Muro MD Oct 18, 2016 18:20
[2016-10-18] MEDS ORDERED: K-TA10TA PO (18:47)
[2016-10-18] MEDS ORDERED: SIMV20TA PO (18:47)
[2016-10-18] MEDS ORDERED: OMEP20TA PO (18:47)
[2016-10-18 19:14] LABS: AUTOMATED NEUTROPHIL # 6.8 TH/MM3 (1.8-7.7); BASOPHIL % 0.4 % (0.0-2.0); EOSINOPHIL # 0.1 TH/MM3 (0-0.4); EOSINOPHIL % 1.2 % (0.0-4.0); HEMATOCRIT 32.5 % (35.0-46.0); HEMO FLAGS DIFF FINAL; LYMPH % 11.1 % (9.0-44.0); LYMPHOCYTE # 0.9 TH/MM3 (1.0-4.8); MEAN CELL VOLUME 85.7 FL (80.0-100.0); MEAN CORPUSCULAR HEMOGLOBIN 27.3 PG (27.0-34.0); MEAN CORPUSCULAR HGB CONC 31.9 % (32.0-36.0); MONO % 6.5 % (0.0-8.0); NEUT % 80.8 % (16.0-70.0); PLATELET COUNT 186 TH/MM3 (150-450); RED BLOOD COUNT 3.79 MIL/MM3 (4.00-5.30); RED CELL DISTRIBUTION WIDTH 15.1 % (11.6-17.2); WHITE BLOOD COUNT 8.4 TH/MM3 (4.0-11.0)
[2016-10-18 19:30] LABS: APTT (PATIENT) 45.9 SEC (24.3-30.1); INTERNATIONAL NORMALIZED RATIO 2.1 RATIO; PROTHROMBIN TIME - PATIENT 23.4 SEC (9.8-11.6)
[2016-10-18 19:40] VITALS: BP 134/77; PULSE 53; RESP 18; O2SAT 94
[2016-10-18 19:42] LABS: ALKALINE PHOSPHATASE 56 U/L (45-117); ALT (GPT) 58 U/L (10-53); ANION GAP 9 MEQ/L (5-15); AST (GOT) 83 U/L (15-37); BICARBONATE 21.4 MEQ/L (21.0-32.0); BLOOD UREA NITROGEN 24 MG/DL (7-18); CALCIUM-PROTEIN CORRECTED 7.7 MG/DL (8.5-10.1); CHLORIDE 108 MEQ/L (98-107); GLOMERULAR FILTRATION RATE 52 ML/MIN (>89); POTASSIUM 5.3 MEQ/L (3.5-5.1); SODIUM (NA) 138 MEQ/L (136-145); TOTAL BILIRUBIN ADULT 0.5 MG/DL (0.2-1.0)
[2016-10-18 19:43] LABS: BLOOD, URINE NEG (NEG); COMMENT (UR) CULT NOT INDICATED; CULTURE IF INDICATED CULT NOT INDICATED; GLUCOSE,URINE NEG (NEG); HYALINE CAST, URINE 27 /lpf (RARE); KETONE, URINE NEG (NEG); NITRITE,URINE NEG (NEG); PH, URINE 5.5 (5.0-8.5); URINE COLOR YELLOW (YELLW/STRAW)
[2016-10-18] MEDS ORDERED: IOHEXOL 350 MG/ML 10 ML VIAL (for RAD DIAG) IV ONE (20:23)
--- NOTE | 2016-10-18 20:36 | RADRPT ---
EXAM DATE/TIME: 10/18/2016 20:16 [facility] COMPARISON: CT BRAIN W/O CONTRAST, August 30, 2012, 22:32. INDICATIONS : Dizziness with nausea and vomiting. RADIATION DOSE: 56.35 CTDIvol (mGy) MEDICAL HISTORY : Hypertension. CVA. Gastric ulcer. Skin cancer. SURGICAL HISTORY : Tonsillectomy. Appendectomy.Hysterectomy. ENCOUNTER: Initial ACUITY: 1 day PAIN SCALE: 0/10 LOCATION: cranial TECHNIQUE: Multiple contiguous axial images were obtained of the head. Using automated exposure control and adj ustment of the mA and/or kV according to patient size, radiation dose was kept as low as reasonably a chievable to obtain optimal diagnostic quality images. FINDINGS: CEREBRUM: The ventricles are normal for age. No evidence of midline shift, mass lesion, hemorrhage or acute in farction. No extra-axial fluid collections are seen. POSTERIOR FOSSA: The cerebellum and brainstem are intact. The 4th ventricle is midline. The cerebellopontine angle i s unremarkable. EXTRACRANIAL: The visualized portion of the orbits is intact. SKULL: The calvaria is intact. No evidence of skull fracture. CONCLUSION: No acute intracranial abnormality. Seth Taveras MD on October 18, 2016 at 20:34 Board Certified Radiologist. This report was verified electronically.
--- NOTE | 2016-10-18 20:46 | RADRPT ---
EXAM DATE/TIME: 10/18/2016 20:15 [facility] COMPARISON: No previous studies available for comparison. INDICATIONS : Abdominal pain with nausea and vomiting. IV CONTRAST: 96 cc Omnipaque 350 (iohexol) IV ORAL CONTRAST: No oral contrast ingested. RADIATION DOSE: 9.96 CTDIvol (mGy) MEDICAL HISTORY : Hypertension. Gastric ulcer. CVA. SURGICAL HISTORY : Hysterectomy. Appendectomy.Tonsillectomy. ENCOUNTER: Initial ACUITY: 1 day PAIN SCALE: 3/10 LOCATION: Bilateral upper quadrant TECHNIQUE: Volumetric scanning of the abdomen and pelvis was performed. Using automated exposure control and ad justment of the mA and/or kV according to patient size, radiation dose was kept as low as reasonably achievable to obtain optimal diagnostic quality images. FINDINGS: Compare October 07. Previous pleural effusions have decreased in size. The basilar lung fibrotic serg nges. No acute findings in the liver. Mild fatty liver. Spleen, adrenals, kidneys demonstrate no acute find ings. Gallbladder is distended without gallbladder wall thickening. Cholecystitis could give this appearanc e. There is also some fluid attenuation around the pancreatic head, possibly an early pancreatitis. No bowel obstruction. No free air. Colonic diverticula. Pessary present. CONCLUSION: 1. Gallbladder wall thickening and some distention. There is also some fluid tracking around the panc reatic head. Differential diagnosis early cholecystitis and pancreatitis. 2. Improvement in pleural effusions since October 07. Basilar lung fibrotic changes. Maximus Mike MD on October 18, 2016 at 20:42 Board Certified Radiologist. This report was verified electronically.
[2016-10-18 20:49] LABS: DIGOXIN 1.7 NG/ML (0.8-2.0)
[2016-10-18 20:50] LABS: CREATINE KINASE 21 U/L (26-192)
[2016-10-18] MEDS ORDERED: PIPERACIL-TAZO 4.5 GM PREMIX 100 ML IV ONE (21:00)
[2016-10-18] MEDS ORDERED: PIPERACIL-TAZO 3.375 GM PREMIX 50 ML IV ONE (21:00)
[2016-10-18] MEDS ORDERED: VANCOMYCIN INJ 1,250 MG in SODIUM CHLOR 0.9% 250 ML INJ 250 ML IV ONE (21:15)
--- NOTE | 2016-10-18 21:21 | PD ---
Data Data Last Documented VS Vital Signs Date Time Temp Pulse Resp B/P Pulse Ox O2 Delivery O2 Flow Rate FiO2 10/18/16 19:40 53 18 134/77 94 Nasal Cannula 2 10/18/16 16:45 97.8 Orders Electrocardiogram (10/18/16 ) Complete Blood Count With Diff (10/18/16 17:24) Comprehensive Metabolic Panel (10/18/16 17:24) Lipase (10/18/16 17:24) Lactic Acid (10/18/16:24) Prothrombin Time / Inr (Pt) (10/18/16 17:24) Act Partial Throm Time (Ptt) (10/18/16 17:24) Urinalysis - C+S If Indicated (10/18/16 17:24) Ct Abd/Pel W Iv Contrast(Rout) (10/18/16 17:24) Iv Access Insert/Monitor (10/18/16 17:24) Ecg Monitoring (10/18/16 17:24) Oximetry (10/18/16:24) NPO (10/18/16:24) Sodium Chlor 0.9% 1000 Ml Inj (Ns 1000 M (10/18/16 17:24) Ct Brain W/O Iv Contrast(Rout) (10/18/16 17:31) Chest, Single Ap (10/18/16 ) Resp Lab Draw Arterial Punctur (10/18/16 ) Digoxin (10/18/16 18:19) Ckmb (Isoenzyme) Profile (10/18/16 18:19) Troponin I (10/18/16 18:19) B-Type Natriuretic Peptide (10/18/16 20:11) Iohexol 350 Inj (Omnipaque 350 Inj) (10/18/16 20:23) Piperacil-Tazo 3.375 Gm Premix (Zosyn 3. (10/18/16 21:00) Piperacil-Tazo 4.5 Gm Premix (Zosyn 4.5 (10/18/16 21:00) Blood Culture (10/18/16 21:11) Vancomycin Inj (Vancomycin Inj) (10/18/16 21:15) Urinary Catheter Insert/Apply (10/18/16 21:40) Consult Cardiology (10/18/16 ) Consult General Surgery (10/18/16 ) Admit Order (Ed Use Only) (10/18/16 21:40) Labs Laboratory Tests Test 10/18/16 10/18/16 10/18/16 18:19 18:49 21:15 White Blood Count 8.4 TH/MM3 Red Blood Count 3.79 MIL/MM3 Hemoglobin 10.4 GM/DL Hematocrit 32.5 % Mean Corpuscular Volume 85.7 FL Mean Corpuscular Hemoglobin 27.3 PG Mean Corpuscular Hemoglobin 31.9 % Concent Red Cell Distribution Width 15.1 % Platelet Count 186 TH/MM3 Mean Platelet Volume 10.0 FL Neutrophils (%) (Auto) 80.8 % Lymphocytes (%) (Auto) 11.1 % Monocytes (%) (Auto) 6.5 % Eosinophils (%) (Auto) 1.2 % Basophils (%) (Auto) 0.4 % Neutrophils # (Auto) 6.8 TH/MM3 Lymphocytes # (Auto) 0.9 TH/MM3 Monocytes # (Auto) 0.5 TH/MM3 Eosinophils # (Auto) 0.1 TH/MM3 Basophils # (Auto) 0.0 TH/MM3 CBC Comment DIFF FINAL Differential Comment Prothrombin Time 23.4 SEC Prothromb Time International 2.1 RATIO Ratio Activated Partial 45.9 SEC Thromboplast Time Sodium Level 138 MEQ/L Potassium Level 5.3 MEQ/L Chloride Level 108 MEQ/L Carbon Dioxide Level 21.4 MEQ/L Anion Gap 9 MEQ/L Blood Urea Nitrogen 24 MG/DL Creatinine 1.00 MG/DL Estimat Glomerular Filtration 52 ML/MIN Rate Random Glucose 113 MG/DL Lactic Acid Level 0.9 mmol/L Calcium Level 7.1 MG/DL Protein Corrected Calcium 7.7 MG/DL Total Bilirubin 0.5 MG/DL Aspartate Amino Transf 83 U/L (AST/SGOT) Alanine Aminotransferase 58 U/L (ALT/SGPT) Alkaline Phosphatase 56 U/L Total Creatine Kinase 21 U/L Troponin I LESS THAN 0.02 NG/ML Total Protein 6.0 GM/DL Albumin 2.7 GM/DL Lipase 53 U/L Digoxin Level 1.7 NG/ML Urine Color YELLOW Urine Turbidity CLEAR Urine pH 5.5 Urine Specific [place] 1.013 Urine Protein NEG mg/dL Urine Glucose (UA) NEG mg/dL Urine Ketones NEG mg/dL Urine Occult Blood NEG Urine Nitrite NEG Urine Bilirubin NEG Urine Urobilinogen LESS THAN 2.0 MG/DL Urine Leukocyte Esterase NEG Urine WBC LESS THAN 1 /hpf Urine Hyaline Casts 27 /lpf Microscopic Urinalysis Comment CULT NOT INDICATED B-Type Natriuretic Peptide 356 PG/ML MDM Medical Record Reviewed: Yes Supervised Visit with JACLYN: No Narrative Course Please refer to outgoing provider note. CBC & BMP Diagram 10/18/16 18:19 Protein corrected calcium 7.7 AST 83 ALT 58 Total creatinine kinase 21 Troponin less than 0.02 BNP 356 Albumin 2.7 Lipase 53 EKG reveals irregular bradycardia consistent with atrial fibrillation Last [address] 10/18/16 1731 Signed Impressions: Service Date/Time: Tuesday, October 18, 2016 20:16 - CONCLUSION: No acute intracranial abnormality. Seth Taveras MD Abdomen/Pelvis CT 10/18/16 1724 Signed Impressions: Service Date/Time: Tuesday, October 18, 2016 20:15 - CONCLUSION: 1. Gallbladder wall thickening and some distention. There is also some fluid tracking around the pancreatic head. Differential diagnosis early cholecystitis and pancreatitis. 2. Improvement in pleural effusions since October 07. Basilar lung fibrotic changes. Maximus Mike MD Chest X-Ray 10/18/16 0000 Signed Impressions: Service Date/Time: Tuesday, October 18, 2016 17:50 - CONCLUSION: Bibasilar consolidation and small effusions. Elevated right hemidiaphragm, chronic. Seth Taveras MD The case was discussed with Dr. Tesfaye of general surgery who requests nothing by mouth status and that we hold Xarelto if the patient has not had a stroke. Zosyn and vancomycin started. The case was discussed with the patient including the diagnoses made here. Case discussed with Dr. Pandey for the hospitalist service. The patient became somewhat dyspneic during her ER stay, presumably due to volume overload. She received 60 mg Lasix and BiPAP was started. This happened shortly after admission to the floor under the hospitalist service. The patient did improve with BiPAP and oxygen. She produced about 600-700 cc of urine. A Dyson was placed. Diagnosis Primary Impression: Near syncope Additional Impressions: CHF (congestive heart failure) Qualified Code: I50.9 - Congestive heart failure, unspecified congestive heart failure chronicity, unspecified congestive heart failure type PNA (pneumonia) Pulmonary edema Qualified Code: J81.0 - Acute pulmonary edema Cholecystitis Admitting Information Admitting Physician Requests: Admit Heriberto Walker MD Oct 18, 2016 21:21
[2016-10-18 22:00] VITALS: O2SAT 100
[2016-10-18] MEDS ORDERED: Vancomycin Consult Pharmacy 1 EA OTHER SCH (22:00)
[2016-10-18] MEDS ORDERED: RESP: ALBUTEROL 2.5 MG/IPRATROPIUM 0.5 MG NEB (PRN) NEB (22:00)
[2016-10-18] MEDS ORDERED: FUROSEMIDE 40 MG/4 ML VIAL IV PUSH ONE (22:00)
[2016-10-18] MEDS ORDERED: MORPHINE SULFATE 4 MG/ML INJ IV PRN (22:00)
[2016-10-18] MEDS ORDERED: ACETAMINOPHEN 325 MG TAB PO PRN (22:00)
[2016-10-18] MEDS ORDERED: SODIUM CHLORIDE 0.9% FLUSH 5 ML FLUSH FLUSH PRN (22:00)
[2016-10-18] MEDS ORDERED: BISACODYL 10 MG SUPP PR PRN (22:00)
--- NOTE | 2016-10-18 22:11 | HHI.HP ---
HPI Service [facility]ists Primary Care Physician Leonidas Andre MD Admission Diagnosis N/V, Cholecystitis, Bilat Pl Effusions, Poss PNA Diagnoses: (1) Cholecystitis Diagnosis: Principal (2) CHF (congestive heart failure) Diagnosis: Principal (3) PNA (pneumonia) Diagnosis: Principal (4) Hypoxia Diagnosis: Principal (5) Hypocalcemia Diagnosis: Principal (6) A-fib Diagnosis: Principal Travel History International Travel<30 Days: No Contact w/Intl Traveler <30 Da: No Traveled to Known Affected Are: No History of Present Illness This is an 86-year-old female w/ a PMH of HTN, A-fib on Xarelto, Hyperlipidemia and CHF (Echo 10/07/16 w/ EF 50-55%, Severe MR, Dilated LA) who was brought to the ER for c/o dizziness, abdominal pain, nausea and vomiting starting few hours prior to presentation. Denies fever, chills or diarrhea. Recent admit -10/11/16 for A-fib w/ RVR and pulmonary edema, diagnosed w/ Acute Diastolic CHF and d/c'd home on Lasix. Follows w/ Dr. Guido w/ Cardiology. Today, w/ acute onset of abd pain, nausea/vomiting as above. On arrival, BP 99/63, HR 54 , O2 sat 97% on RA, Afebrile. S/p 1L IVF in ER, repeat BP 117/55, HR 54. CBC at baseline. K+ 5.3. GFR 52. Ca 7.1. Lipase 53. Trop negative. CXR w/ bibasilar consolidations. CT Head w/ no acute findings. CT Abd/Pelvis w/ gallbladder wall thickening and some distention w/ fluid tracking around pancreatic head, suggestive of early cholecystitis and pancreatitis, improved pleural effusion. Dr. Tesfaye consulted by ER physician, plan is for surgical intervention. S/p Zosyn in ER. While in ER, pt w/ acute respiratory distress, O2 sat decreased to 80's, started on BIPAP, s/p Lasix 60mg IV x1. Currently improved. Review of Systems Except as stated in HPI: all other systems reviewed are Neg ROS: 14 point review of systems otherwise negative. Past Family Social History Past Medical History PMH: HTN, A-fib on Xarelto, Hyperlipidemia and CHF (Echo 10/07/16 w/ EF 50-55%, Severe MR, Dilated LA) Past Surgical History PAST SURGICAL HISTORY: Appendectomy, Bilateral Cataract Surgery, Left Cornea Transplant, Hysterectomy, Tonsillectomy Allergies: Coded Allergies: Cymbalta (Verified Adverse Reaction, Severe, HYPERTENSION, 10/07/16) Family History PAST FAMILY HISTORY: Reviewed. No h/o DM or CAD Social History PAST SOCIAL HISTORY: Negative for alcohol, tobacco or drugs. Physical Exam Vital Signs Vital Signs Date Time Temp Pulse Resp B/P Pulse Ox O2 Delivery O2 Flow Rate FiO2 10/18/16 19:40 53 18 134/77 94 Nasal Cannula 2 10/18/16 18:05 97 Nasal Cannula 2 10/18/16 18:05 54 18 117/55 97 Nasal Cannula 2 10/18/16 16:48 18 10/18/16 16:45 97.8 54 18 99/63 97 Physical Exam PE: GENERAL: Elderly white female in no acute distress, currently on BiPAP. HEENT: PERRLA, EOMI. No scleral icterus or conjunctival pallor. No lid lag or facial droop. CARDIOVASCULAR: Regular rate and rhythm. No obvious murmurs to auscultation. No chest tenderness to palpation. RESPIRATORY: No obvious rhonchi or wheezing. Clear to auscultation. Breath sounds mildly decreased at bases bilaterally. GASTROINTESTINAL: Abdomen soft, mild RUQ tenderness to palpation, nondistended. BS normal. MUSCULOSKELETAL: Extremities without clubbing, cyanosis, or edema. No obvious deformities. NEUROLOGICAL: Awake, alert and oriented x4. No focal neurologic deficits. Moving both upper and lower extremities spontaneously. Laboratory Laboratory Tests Test 10/18/16 10/18/16 18:19 18:49 White Blood Count 8.4 Red Blood Count 3.79 Hemoglobin 10.4 Hematocrit 32.5 Mean Corpuscular Volume 85.7 Mean Corpuscular Hemoglobin 27.3 Mean Corpuscular Hemoglobin 31.9 Concent Red Cell Distribution Width 15.1 Platelet Count 186 Mean Platelet Volume 10.0 Neutrophils (%) (Auto) 80.8 Lymphocytes (%) (Auto) 11.1 Monocytes (%) (Auto) 6.5 Eosinophils (%) (Auto) 1.2 Basophils (%) (Auto) 0.4 Neutrophils # (Auto) 6.8 Lymphocytes # (Auto) 0.9 Monocytes # (Auto) 0.5 Eosinophils # (Auto) 0.1 Basophils # (Auto) 0.0 CBC Comment DIFF FINAL Differential Comment Prothrombin Time 23.4 Prothromb Time International 2.1 Ratio Activated Partial 45.9 Thromboplast Time Sodium Level 138 Potassium Level 5.3 Chloride Level 108 Carbon Dioxide Level 21.4 Anion Gap 9 Blood Urea Nitrogen 24 Creatinine 1.00 Estimat Glomerular Filtration 52 Rate Random Glucose 113 Lactic Acid Level 0.9 Calcium Level 7.1 Protein Corrected Calcium 7.7 Total Bilirubin 0.5 Aspartate Amino Transf 83 (AST/SGOT) Alanine Aminotransferase 58 (ALT/SGPT) Alkaline Phosphatase 56 Total Creatine Kinase 21 Troponin I LESS THAN 0.02 Total Protein 6.0 Albumin 2.7 Lipase 53 Digoxin Level 1.7 Urine Color YELLOW Urine Turbidity CLEAR Urine pH 5.5 Urine Specific [place] 1.013 Urine Protein NEG Urine Glucose (UA) NEG Urine Ketones NEG Urine Occult Blood NEG Urine Nitrite NEG Urine Bilirubin NEG Urine Urobilinogen LESS THAN 2.0 Urine Leukocyte Esterase NEG Urine WBC LESS THAN 1 Urine Hyaline Casts 27 Microscopic Urinalysis Comment CULT NOT INDICATED Result Diagram: 10/18/16181810/18/161818 Assessment and Plan Problem List: (1) Cholecystitis ICD Code: K81.9 Status: Acute (2) PNA (pneumonia) ICD Code: J18.9 Status: Acute (3) Hypoxia ICD Code: R09.02 Status: Acute (4) CHF (congestive heart failure) ICD Code: I50.9 Status: Acute (5) A-fib ICD Code: I48.91 Status: Acute (6) Hypocalcemia ICD Code: E83.51 Status: Acute Assessment and Plan A/P: 1. Cholecystitis: acute onset of abdominal pain, nausea/vomiting, CT Abd/ Pelvis w/ gallbladder wall thickening and some distention, fluid tracking around the pancreatic head, possibly early cholecystitis and pancreatitis. Dr. Tesfaye consulted by ER physician, plan is for surgical intervention. Hold Xarelto. S/p Zosyn in ER, will continue w/ IV Abx. 2. PNA: CXR w/ bibasilar consolidations and small effusions, CT Abd/Pelvis w/ basilar lung fibrosis, will continue w/ IV Abx, DuoNeb prn. 3. Hypoxia: Multifactorial-likely secondary to PNA and CHF. While in ER, episode of acute respiratory distress w/ O2 sat 80's, s/p Lasix 60mg IV x1, currently on BIPAP. Will wean as tolerated. Monitor O2. 4. CHF: Acute on Chronic. Diastolic. Recent diagnosis of CHF on last admit -10/11/16 for A-fib w/ RVR, Echo 10/07/16 w/ EF 50-55%, Severe MR and LA Dilatation, continue w/ Lasix. 5. Hypocalcemia: Ca 7.1, will replace and recheck in am. 6. A-fib: Controlled. Resume home Digoxin, Diltiazem and Metoprolol. Hold Xarelto for upcoming surgical intervention. 7. DVT Prophylaxis: Hold Xarelto 8. Social work for d/c planning as needed 9. Case discussed w/ ER physician at length Physician Certification 2 Midnight Certification Type: Admission for Inpatient Services Order for Inpatient Services The services are ordered in accordance with Medicare regulations or non- Medicare payer requirements, as applicable. In the case of services not specified as inpatient-only, they are appropriately provided as inpatient services in accordance with the 2-midnight benchmark. Estimated LOS (days): 2 days is the estimated time the patient will need to remain in the hospital, assuming treatment plan goals are met and no additional complications. Post-Hospital Plan: Not yet determined Dawn Pandey MD Oct 18, 2016 22:11
[2016-10-18 22:42] VITALS: BP 145/89; PULSE 68; RESP 18; O2SAT 96
[2016-10-18] MEDS ORDERED: CALCIUM GLUCONATE 10% 1 GM/10 ML VIAL IV PUSH ONE (22:45)
[2016-10-18] MEDS ORDERED: CALCIUM GLUCONATE INJ 1 GM in SODIUM CHLORIDE 0.9% INJ 100 ML IV ONE (23:00)
[2016-10-18 23:30] VITALS: O2SAT 100
[2016-10-19] VITALS (24 sets, daily range): BP systolic 103–174; BP diastolic 46–99; PULSE 52–88; RESP 18–20; TEMP 97–99.3; O2SAT 94–100
[2016-10-19] MEDS: PIPERACIL-TAZO 3.375 GM PREMIX 50 ML IV SCH ×4 (03:17→22:23)
[2016-10-19] MEDS ORDERED: METOPROLOL TARTRATE 5 MG/5 ML VIAL IV PUSH ONE (03:30)
[2016-10-19] MEDS: ACETAMINOPHEN/HYDROcodone 325 MG/5 MG TAB PO PRN ×3 (03:36→22:19)
[2016-10-19] MEDS: SODIUM CHLORIDE 0.9% FLUSH 5 ML FLUSH FLUSH SCH ×2 (09:00→20:51)
[2016-10-19] MEDS ORDERED: METOPROLOL TARTRATE 100 MG TAB PO SCH (09:00)
[2016-10-19] MEDS: DILTIAZEM-CD 120 MG CAP ER PO SCH (09:37)
[2016-10-19] MEDS: DIGOXIN 0.25 MG TAB PO SCH (09:38)
[2016-10-19] MEDS: FUROSEMIDE 20 MG TAB PO SCH (09:38)
[2016-10-19] MEDS: PANTOPRAZOLE SOD 20 MG DELAYED RELEASE TAB PO SCH ×2 (09:38→20:51)
[2016-10-19] MEDS: ALPRAZolam 0.25 MG TAB PO PRN ×2 (10:04→22:19)
--- NOTE | 2016-10-19 10:27 | HHI.PR ---
Subjective Remarks f/u for abdominal pain and N/V. patient's nurse at bedside. patient stated he feels a lot better. She denied any fever/chills, abdominal pain. patient stated she is fatigue. She denied any URI. Objective Vitals Vital Signs Date Time Temp Pulse Resp B/P Pulse Ox O2 Delivery O2 Flow Rate FiO2 10/19/16 08:39 68 10/19/16 07:28 97.0 74 18 103/54 100 10/19/16 07:28 71 10/19/16 05:00 68 10/19/16 04:30 18 10/19/16 04:00 97.4 88 20 133/99 95 10/19/16 04:00 68 10/19/16 03:46 80 18 174/98 10/19/16 00:44 75 18 170/82 94 Nasal Cannula 3 10/18/16 23:30 100 Nasal Cannula 5.00 10/18/16 22:43 BiPAP 100 10/18/16 22:42 68 18 145/89 96 BiPAP 100 10/18/16 22:00 100 100 10/18/16 19:40 53 18 134/77 94 Nasal Cannula 2 10/18/16 18:05 97 Nasal Cannula 2 10/18/16 18:05 54 18 117/55 97 Nasal Cannula 2 10/18/16 16:48 18 10/18/16 16:45 97.8 54 18 99/63 97 I/O 10/18/16 10/18/16 10/18/16 10/19/16 10/19/16 10/19/16 07:00 15:00 23:00 07:00 15:00 23:00 Intake Total 340 ml Output Total 1900 ml Balance -1560 ml Intake Oral 240 ml IV Total 100 ml Output Urine Total 1900 ml # Voids 0 Result Diagram: 10/18/16181810/18/161818 Objective Remarks GENERAL: in NAD CARDIOVASCULAR: Regular rate and rhythm without murmurs, gallops, or rubs. RESPIRATORY: Breath sounds equal bilaterally. No accessory muscle use. GASTROINTESTINAL: Abdomen soft, nondistended, + TTP in RUQ. MUSCULOSKELETAL: No cyanosis, or edema. BACK: Nontender without obvious deformity. No CVA tenderness. Medications and IVs Current Medications Sodium Chloride (NS 1000 ml Inj) 1,000 ml @ 1,000 mls/hr Q1H IV Last administered on 10/18/16 18:03; Start 10/18/16 at 17:24; Stop 10/18/16 at 18:23 ; Status DC Iohexol 96 ml 96 ml STK-MED ONCE IV Last administered on 10/18/16 20:23; Start 10/18/16 at 20:23; Stop 10/18/16 at 20:27; Status DC Piperacillin Sod/ Tazobactam Sod 50 ml @ 100 mls/hr ONCE ONCE IV ; Start 10/18 at 21:00; Stop 10/18/16 at 21:00; Status DC Piperacillin Sod/ Tazobactam Sod 100 ml @ 200 mls/hr ONCE ONCE IV Last administered on 10/18/16 22:44; Start 10/18/16 at 21:00; Stop 10/18/16 at 21:29 ; Status DC Vancomycin HCl/ Sodium Chloride (Vancomycin Inj/ NS 250 ml Inj) 262.5 ml @ 262.5 mls/ hr ONCE ONCE IV Last administered on 10/18/16 23:22; Start at 21:15; Stop 10/18/16 at 22:17; Status DC Furosemide 60 mg 60 mg ONCE ONCE IV PUSH Last administered on 10/18/16 22:05 ; Start 10/18/16 at 22:00; Stop 10/18/16 at 22:01; Status DC Pharmacy Profile Note 0 ml @ 0 mls/hr UNSCH OTHER ; Start 10/18/16 at 22:00 Piperacillin Sod/ Tazobactam Sod (Zosyn 3.375 Gm Premix) 50 ml @ 100 mls/hr Q6H IV Last administered on 10/19/16 09:53; Start 10/19/16 at 03:00 Albuterol/ Ipratropium (Duoneb Neb) 1 ampule Q4HR NEB PRN NEB SOB/WHEEZING Last administered on 10/18/16 22:37; Start 10/18/16 at 22:00 IV Flush (NS Flush) 2 ml UNSCH PRN FLUSH FLUSH AFTER USING IV ACCESS; Start 06/26 at 22:00 IV Flush (NS Flush) 2 ml BID FLUSH Last administered on 10/19/16 09:00; Start 10/19/16 at 09:00 Ondansetron HCl (Zofran Inj) 4 mg Q6H PRN IVP NAUSEA OR VOMITING; Start at 22:00 Bisacodyl (Dulcolax Supp) 10 mg DAILY PRN [place] CONSTIPATION; Start 10/18/16 at 22 :00 Acetaminophen (Tylenol) 650 mg Q6H PRN PO FEVER/PAIN SCALE 1 TO 2; Start at 22:00 Acetaminophen/ Hydrocodone Bitart (Chromo 5-325 Mg) 1 tab Q4H PRN PO PAIN SCALE 3 TO 5 Last administered on 10/19/16 10:04; Start 10/18/16 at 22:00 Morphine Sulfate (Morphine Inj) 2 mg Q3H PRN IV Pain 6-10; Start 10/18/16 at 22 :00 Alprazolam (Xanax) 0.25 mg HS PRN PO ANXIETY Last administered on 10/19/16 10: 04; Start 10/18/16 at 22:00 Digoxin (Lanoxin) 0.25 mg DAILY PO Last administered on 10/19/16 09:38; Start 10/19/16 at 09:00 Diltiazem HCl (Cardizem Cd) 120 mg DAILY PO Last administered on 10/19/16 09: 37; Start 10/19/16 at 09:00 Furosemide (Lasix) 20 mg DAILY PO Last administered on 10/19/16 09:38; Start 10/19/16 at 09:00 Metoprolol Tartrate (Lopressor) 100 mg BID PO Last administered on 10/19/16 09 :38; Start 10/19/16 at 09:00 Pantoprazole Sodium (Protonix) 20 mg BID PO Last administered on 10/19/16 09: 38; Start 10/19/16 at 09:00 Pravastatin Sodium (Pravachol) 40 mg HS PO CM; Start 10/19/16 at 21:00 Calcium Gluconate 1 gm 1 gm ONCE ONCE IV PUSH ; Start 10/18/16 at 22:45; Stop 10/18/16 at 22:46; Status UNV Calcium Gluconate/ Sodium Chloride (Calcium Gluconate Inj/NS Inj) 110 ml @ 110 mls/hr ONCE ONCE IV Last administered on 10/18/16 23:22; Start 10/18/16 at 23 :00; Stop 10/18/16 at 23:59; Status DC Metoprolol Tartrate (Lopressor Inj) 5 mg ONCE ONCE IV PUSH Last administered on 10/19/16t 03:32; Start 10/19/16 at 03:30; Stop 10/19/16 at 03:31; Status DC A/P Problem List: (1) Cholecystitis ICD Code: K81.9 Status: Acute (2) PNA (pneumonia) ICD Code: J18.9 Status: Acute (3) Hypoxia ICD Code: R09.02 Status: Acute (4) CHF (congestive heart failure) ICD Code: I50.9 Status: Acute (5) A-fib ICD Code: I48.91 Status: Acute (6) Hypocalcemia ICD Code: E83.51 Status: Acute Assessment and Plan Acute abdominal pain -Cholecystitis: acute onset of abdominal pain, nausea/vomiting, -CT Abd/Pelvis w/ gallbladder wall thickening and some distention, fluid tracking around the pancreatic head, possibly early cholecystitis and pancreatitis. - Dr. Tesfaye consulted by ER physician, plan is for surgical intervention. Hold Xarelto. S/p Zosyn in ER, will continue w/ IV Abx. 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 Hypoxia -unsure etiology maybe due to pain. - improved. CHF - Chronic. Diastolic. - Recent diagnosis of CHF on last admit 10/07-10/11/16 for A-fib w/ RVR, Echo w/ EF 50-55%, Severe MR and LA Dilatation, continue w/ Lasix. A-fib: Controlled. -Resume home Digoxin, Diltiazem and Metoprolol. Hold Xarelto for upcoming surgical intervention. DVT Prophylaxis: Hold Xarelto Discharge Planning patient requires IV antibiotics pending surgical consult for a possible cholecystectomy. Problem Qualifiers (1) CHF (congestive heart failure): Qualified Code: I50.9 - Congestive heart failure, unspecified congestive heart failure chronicity, unspecified congestive heart failure type Billie Matthews MD Oct 19, 2016 10:27
[2016-10-19 10:34] LABS: AUTOMATED NEUTROPHIL # 7.4 TH/MM3 (1.8-7.7); BASOPHIL # 0.1 TH/MM3 (0-0.2); BASOPHIL % 0.8 % (0.0-2.0); EOSINOPHIL # 0.2 TH/MM3 (0-0.4); EOSINOPHIL % 1.9 % (0.0-4.0); HEMATOCRIT 36.8 % (35.0-46.0); HEMO FLAGS DIFF FINAL; LYMPH % 12.1 % (9.0-44.0); LYMPHOCYTE # 1.1 TH/MM3 (1.0-4.8); MEAN CELL VOLUME 83.5 FL (80.0-100.0); MEAN CORPUSCULAR HEMOGLOBIN 27.3 PG (27.0-34.0); MEAN CORPUSCULAR HGB CONC 32.7 % (32.0-36.0); MONO % 6.3 % (0.0-8.0); NEUT % 78.9 % (16.0-70.0); PLATELET COUNT 162 TH/MM3 (150-450); RED CELL DISTRIBUTION WIDTH 15.4 % (11.6-17.2); WHITE BLOOD COUNT 9.4 TH/MM3 (4.0-11.0)
[2016-10-19 10:36] LABS: INTERNATIONAL NORMALIZED RATIO 1.5 RATIO; PROTHROMBIN TIME - PATIENT 16.9 SEC (9.8-11.6)
[2016-10-19 10:51] LABS: ALKALINE PHOSPHATASE 62 U/L (45-117); ALT (GPT) 67 U/L (10-53); ANION GAP 10 MEQ/L (5-15); AST (GOT) 66 U/L (15-37); BICARBONATE 27.4 MEQ/L (21.0-32.0); BLOOD UREA NITROGEN 20 MG/DL (7-18); CHLORIDE 102 MEQ/L (98-107); GLOMERULAR FILTRATION RATE 49 ML/MIN (>89); POTASSIUM 4.4 MEQ/L (3.5-5.1); SODIUM (NA) 139 MEQ/L (136-145); TOTAL BILIRUBIN ADULT 1.2 MG/DL (0.2-1.0)
--- NOTE | 2016-10-19 11:21 | MB ---
cc: RICARDA HOLLY M.D. DATE OF CONSULTATION: 10/19/2016 REASON FOR CONSULTATION: Question of cholecystitis HISTORY OF PRESENT ILLNESS The patient is an 86-year-old female who was in the hospital last week for congestive heart failure and returned yesterday evening after becoming dizzy and falling. The patient has a past medical history that is extensive and includes atrial fibrillation, hypertension, hyperlipidemia, congestive heart failure. Patient's previous echo on 10/07 demonstrated EF of 50-55% with severe mitral regurgitation. The patient has undergone CT of the head with no acute findings but chest x-ray demonstrated bibasilar consolidation. CT of the abdomen and pelvis demonstrated some gallbladder wall thickening and some fluid tracking around the pancreatic head suggesting possible early pancreatitis. There were bilateral pleural effusions noted. While in the emergency room the patient had acute respiratory distress with decreased O2 saturations at 80s and was started on BiPAP and given Lasix. PAST MEDICAL HISTORY: Significant for: 1. Hypertension. 2. Atrial fibrillation on Xarelto. 3. Hyperlipidemia. 4. Congestive heart failure. PAST SURGICAL HISTORY: 1. Appendectomy 2. Bilateral cataract surgery. 3. Left cornea transplant. 4. Hysterectomy. 5. Tonsillectomy. ALLERGIES: CYMBALTA CAUSES HYPERTENSION SOCIAL HISTORY: The patient does not drink, smoke or take any drugs. PHYSICAL EXAMINATION: Reveals an elderly female in no acute distress. VITAL SIGNS: 103/54, pulse 74, respiratory rate 18, temperature 97.0, 100% saturation on room air. HEENT: Sclera anicteric. Pupils reactive. Chest: Demonstrates some expiratory rales bilaterally. Cardiac: Regular rhythm. Abdomen: Soft. There is no right upper quadrant tenderness whatsoever. There is no epigastric tenderness. There are no hernias noted. There is a well-healed scar in the right lower quadrant. Neurologic: Nonfocal. The patient has a laceration to the dorsum of the left hand. LABORATORY VALUES: WBCs 8.4, hemoglobin 10.4, hematocrit 32.5, platelet count 186,000. Chemistries demonstrate potassium of 5.3, AST 83, ALT 58, alkaline phosphatase normal at 56 and total bilirubin normal at 0.5. Lipase is 53. IMAGING STUDIES CT of the abdomen and pelvis demonstrated some gallbladder wall thickening and distension with some fluid tracking around the pancreatic head. ASSESSMENT Possible gallstone pancreatitis, although the patient has no abdominal pain at this time. Given her other medical problems, she is not a good candidate for surgery at this time. PLAN We will follow with you. MD SANDRA Michaels/ALBERTO /9:19 AM /10:14 AM
[2016-10-19] MEDS: PRAVASTATIN SOD 40 MG TAB PO SCH (20:51)
[2016-10-20] VITALS (28 sets, daily range): BP systolic 104–159; BP diastolic 51–82; PULSE 56–84; RESP 16–20; TEMP 97.6–99; O2SAT 93–99
[2016-10-20] MEDS: PIPERACIL-TAZO 3.375 GM PREMIX 50 ML IV SCH ×4 (03:45→22:26)
--- NOTE | 2016-10-20 07:15 | EKG ---
Date Performed: 10/18/2016 Time Performed: 16:58:12 PTAGE: 86 years EKG: ATRIAL FIBRILLATION WITH SLOW VENTRICULAR RESPONSE NONSPECIFIC T-WAVE ABNORMALITY ABNORMAL RHYTHM ECG Compared to PREVIOUS TRACING , the ventricular response to the atrial fibrillation is much slower. ST -T changes have improved. PREVIOUS TRACIN10/07/2016 00.12 DOCTOR: Eber Kevin Interpretating Date/Time 10/20/2016 07:14:43
[2016-10-20] MEDS: PANTOPRAZOLE SOD 20 MG DELAYED RELEASE TAB PO SCH ×2 (08:52→22:01)
[2016-10-20] MEDS: METOPROLOL TARTRATE 100 MG TAB PO SCH ×2 (08:52→22:00)
[2016-10-20] MEDS: DILTIAZEM-CD 120 MG CAP ER PO SCH (08:52)
[2016-10-20] MEDS: FUROSEMIDE 20 MG TAB PO SCH (08:53)
[2016-10-20] MEDS: SODIUM CHLORIDE 0.9% FLUSH 5 ML FLUSH FLUSH SCH ×2 (08:53→22:01)
[2016-10-20] MEDS: DIGOXIN 0.25 MG TAB PO SCH (08:53)
[2016-10-20] MEDS: ACETAMINOPHEN/HYDROcodone 325 MG/5 MG TAB PO PRN ×3 (08:56→22:27)
[2016-10-20] MEDS ORDERED: VANCOMYCIN 1,000 MG/NS 250 ML IV ONE ×2 (10:00)
--- NOTE | 2016-10-20 10:26 | HHI.PR ---
Subjective Remarks f/u for N/V and abdominal pain. Patient stated she is doing well she has no complaints. Denied any N/V or abdominal pain but decrease appetite. patient's and daughter at the bedside. Denied any SOB or cough. Objective Vitals Vital Signs Date Time Temp Pulse Resp B/P Pulse Ox O2 Delivery O2 Flow Rate FiO2 10/20/16 07:00 73 10/20/16 06:00 70 10/20/16 05:00 77 10/20/16 04:27 63 10/20/16 04:00 Nasal Cannula 2.00 10/20/16 04:00 99.0 64 20 138/58 99 10/20/16 03:00 65 10/20/16 02:12 73 10/20/16 01:00 71 10/20/16 00:20 58 10/20/16 00:20 Nasal Cannula 2.00 10/20/16 00:00 99.0 72 20 126/62 99 10/19/16 23:00 70 10/19/16 22:00 70 10/19/16 21:00 68 10/19/16 20:00 99.3 80 20 119/53 99 10/19/16 20:00 Nasal Cannula 2.00 10/19/16 20:00 70 10/19/16 19:00 68 10/19/16 18:05 73 10/19/16 17:08 98 Nasal Cannula 1.00 10/19/16 17:02 67 10/19/16 16:23 65 10/19/16 15:32 Nasal Cannula 1.00 10/19/16 15:32 61 10/19/16 15:32 98.3 74 18 104/46 98 10/19/16 14:28 53 10/19/16 13:38 52 10/19/16 12:25 55 10/19/16 11:45 73 10/19/16 11:45 Nasal Cannula 2.00 10/19/16 11:45 97.0 74 18 103/54 100 10/19/16 10:36 67 10/19/16 10:29 95 Nasal Cannula 2.00 I/O 10/19/16 10/19/16 10/19/16 10/20/16 10/20/16 10/20/16 07:00 15:00 23:00 07:00 15:00 23:00 Intake Total 340 ml 460 ml 440 ml Output Total 1900 ml 1000 ml 600 ml Balance -1560 ml -540 ml -160 ml Intake Oral 240 ml 360 ml 240 ml IV Total 100 ml 100 ml 200 ml Output Urine Total 1900 ml 1000 ml 600 ml # Voids 0 Result Diagram: 10/19/16 1015 10/19/16 1015 Objective Remarks GENERAL: in NAD CARDIOVASCULAR: Regular rate and rhythm without murmurs, gallops, or rubs. RESPIRATORY: Breath sounds equal bilaterally. No accessory muscle use. GASTROINTESTINAL: Abdomen soft, nondistended, + TTP in RUQ. MUSCULOSKELETAL: No cyanosis, or edema. BACK: Nontender without obvious deformity. No CVA tenderness. Medications and IVs Current Medications Sodium Chloride (NS 1000 ml Inj) 1,000 ml @ 1,000 mls/hr Q1H IV Last administered on 10/18/16 18:03; Start 10/18/16 at 17:24; Stop 10/18/16 at 18:23 ; Status DC Iohexol 96 ml 96 ml STK-MED ONCE IV Last administered on 10/18/16 20:23; Start 10/18/16 at 20:23; Stop 10/18/16 at 20:27; Status DC Piperacillin Sod/ Tazobactam Sod 50 ml @ 100 mls/hr ONCE ONCE IV ; Start 10/18 at 21:00; Stop 10/18/16 at 21:00; Status DC Piperacillin Sod/ Tazobactam Sod 100 ml @ 200 mls/hr ONCE ONCE IV Last administered on 10/18/16 22:44; Start 10/18/16 at 21:00; Stop 10/18/16 at 21:29 ; Status DC Vancomycin HCl/ Sodium Chloride (Vancomycin Inj/ NS 250 ml Inj) 262.5 ml @ 262.5 mls/ hr ONCE ONCE IV Last administered on 10/18/16 23:22; Start at 21:15; Stop 10/18/16 at 22:17; Status DC Furosemide 60 mg 60 mg ONCE ONCE IV PUSH Last administered on 10/18/16 22:05 ; Start 10/18/16 at 22:00; Stop 10/18/16 at 22:01; Status DC Pharmacy Profile Note 0 ml @ 0 mls/hr UNSCH OTHER ; Start 10/18/16 at 22:00 Piperacillin Sod/ Tazobactam Sod (Zosyn 3.375 Gm Premix) 50 ml @ 100 mls/hr Q6H IV Last administered on 10/20/16 08:52; Start 10/19/16 at 03:00 Albuterol/ Ipratropium (Duoneb Neb) 1 ampule Q4HR NEB PRN NEB SOB/WHEEZING Last administered on 10/18/16 22:37; Start 10/18/16 at 22:00 IV Flush (NS Flush) 2 ml UNSCH PRN FLUSH FLUSH AFTER USING IV ACCESS; Start 06/26 at 22:00 IV Flush (NS Flush) 2 ml BID FLUSH Last administered on 10/20/16 08:53; Start 10/19/16 at 09:00 Ondansetron HCl (Zofran Inj) 4 mg Q6H PRN IVP NAUSEA OR VOMITING; Start at 22:00 Bisacodyl (Dulcolax Supp) 10 mg DAILY PRN [place] CONSTIPATION; Start 10/18/16 at 22 :00 Acetaminophen (Tylenol) 650 mg Q6H PRN PO FEVER/PAIN SCALE 1 TO 2; Start at 22:00 Acetaminophen/ Hydrocodone Bitart ([place] 5-325 Mg) 1 tab Q4H PRN PO PAIN SCALE 3 TO 5 Last administered on 10/20/16 08:56; Start 10/18/16 at 22:00 Morphine Sulfate (Morphine Inj) 2 mg Q3H PRN IV Pain 6-10; Start 10/18/16 at 22 :00 Alprazolam (Xanax) 0.25 mg HS PRN PO ANXIETY Last administered on 10/19/16 22: 19; Start 10/18/16 at 22:00 Digoxin (Lanoxin) 0.25 mg DAILY PO Last administered on 10/20/16 08:53; Start 10/19/16 at 09:00 Diltiazem HCl (Cardizem Cd) 120 mg DAILY PO Last administered on 10/20/16 08: 52; Start 10/19/16 at 09:00 Furosemide (Lasix) 20 mg DAILY PO Last administered on 10/20/16 08:53; Start 10/19/16 at 09:00 Metoprolol Tartrate (Lopressor) 100 mg BID PO Last administered on 10/19/16 09 :38; Start 10/19/16 at 09:00; Stop 10/19/16 at 16:36; Status DC Pantoprazole Sodium (Protonix) 20 mg BID PO Last administered on 10/20/16 08: 52; Start 10/19/16 at 09:00 Pravastatin Sodium (Pravachol) 40 mg HS PO CM Last administered on 10/19/16 20: 51; Start 10/19/16 at 21:00 Calcium Gluconate 1 gm 1 gm ONCE ONCE IV PUSH ; Start 10/18/16 at 22:45; Stop 10/18/16 at 22:46; Status UNV Calcium Gluconate/ Sodium Chloride (Calcium Gluconate Inj/NS Inj) 110 ml @ 110 mls/hr ONCE ONCE IV Last administered on 10/18/16 23:22; Start 10/18/16 at 23 :00; Stop 10/18/16 at 23:59; Status DC Metoprolol Tartrate (Lopressor Inj) 5 mg ONCE ONCE IV PUSH Last administered on 10/19/16 03:32; Start 10/19/16 at 03:30; Stop 10/19/16 at 03:31; Status DC Metoprolol Tartrate 100 mg 100 mg BID PO Last administered on 10/20/16 08:52; Start 10/20/16 at 09:00 Vancomycin HCl/ Sodium Chloride (Vancomycin Inj/ NS 250 ml Inj) 250 ml @ 250 mls/hr ONCE ONCE IV ; Start 10/20/16 at 10:00; Stop 10/20/16 at 10:59 Rivaroxaban (Xarelto) 20 mg DAILY PO ; Start 10/20/16 at 11:00 A/P Problem List: (1) Cholecystitis ICD Code: K81.9 Status: Acute (2) PNA (pneumonia) ICD Code: J18.9 Status: Acute (3) Hypoxia ICD Code: R09.02 Status: Acute (4) CHF (congestive heart failure) ICD Code: I50.9 Status: Acute (5) A-fib ICD Code: I48.91 Status: Acute (6) Hypocalcemia ICD Code: E83.51 Status: Acute Assessment and Plan Acute abdominal pain -resolved -Cholecystitis vs pancreatitis: acute onset of abdominal pain, nausea/vomiting, -CT Abd/Pelvis w/ gallbladder wall thickening and some distention, fluid tracking around the pancreatic head, possibly early cholecystitis and pancreatitis. - Dr. Tesfaye consulted and stated probably due to pancreatitis. patient poor candidate for surgery. -clinically improving so will continue with current regimen. 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 Hypoxia -unsure etiology maybe due to pain. - improved. CHF - Chronic. Diastolic. - Recent diagnosis of CHF on last admit 10/07-10/11/16 for A-fib w/ RVR, Echo w/ EF 50-55%, Severe MR and LA Dilatation, continue w/ Lasix. A-fib: Controlled. -Resume home Digoxin, Diltiazem and Metoprolol. since patient will unlikely have surgery and is high risk for CVA will restart xarelto. DVT Prophylaxis: restart xarelto. Discharge Planning patient requires IV antibiotics. d/w patient, her and daughter at the bedside. Problem Qualifiers (1) CHF (congestive heart failure): Qualified Code: I50.9 - Congestive heart failure, unspecified congestive heart failure chronicity, unspecified congestive heart failure type Billie Matthews MD Oct 20, 2016 10:26
[2016-10-20] MEDS: ONDANSETRON HCL 4 MG/2 ML VIAL IVP PRN ×2 (10:41→17:59)
[2016-10-20] MEDS: RIVAROXABAN 20 MG TAB PO SCH (11:45)
--- NOTE | 2016-10-20 13:20 | HHI.PR ---
Subjective Subjective Notes Resting in bed Had some breakfast this AM Objective Vitals/I&O Vital Signs Date Time Temp Pulse Resp B/P Pulse Ox O2 Delivery O2 Flow Rate FiO2 10/20/16 12:00 62 10/20/16 11:00 99 Nasal Cannula 2.00 Humidified 10/20/16 11:00 98.1 16 129/71 10/18/16 22:43 100 Labs Laboratory Tests Test 10/20/16 06:28 Random Vancomycin Level 7.6 Date/Time Procedure Status Source Growth 10/18/16 22:30 Aerobic Blood Culture - Preliminary Resulted Blood Peripheral NO GROWTH IN 2 DAYS 10/18/16 22:30 Anaerobic Blood Culture - Preliminary Resulted Blood Peripheral NO GROWTH IN 2 DAYS Cardiovascular: Regular Lungs: Clear Abdomen: Other (mild abdominal tenderness in LLQ with palpation ) Extremities: No edema A/P Assessment and Plan 86 year old female with diffuse abdominal pain; ? etiology gallbladder -Tolerating regular diet -Continue medical management -Patient poor surgical candidate -Will continue to follow Attending Note - Dr. Tesfaye No RUQ, LUQ, epigastric pain Has RLQ and LLQ pain now Not likely gallbladder source. Has recent infiltrates and pleural effusions; unless she has acute cholecystitis causing deterioration, no surgery indicated. The exam, history, and the medical decision-making described in the above note were completed with the assistance of the mid-level provider. I reviewed and agree with the findings presented. I attest that I had a [id number] encounter with the patient on the same day, and personally performed and documented my assessment and findings in the medical record. Jayda Cadena Oct 20, 2016 13:20 Kirby Tesfaye MD Oct 20, 2016 21:24
[2016-10-20] MEDS ORDERED: PILL SPLITTER OTHER PRN (17:15)
--- NOTE | 2016-10-20 20:02 | MB ---
cc: CHUY WATKINS DATE OF CONSULTATION 10/20/2016 HISTORY OF THE PRESENT ILLNESS Ms. Guthrie is an 86-year-old white female with a history of atrial fibrillation, congestive heart failure secondary to diastolic dysfunction and severe mitral regurgitation and hypertension. She was recently admitted for acute diastolic heart failure secondary to atrial fibrillation with rapid ventricular response. She was admitted with dizziness, abdominal pain, nausea and vomiting. She was diagnosed with possible gallstone, pancreatitis. She is now feeling better and denies any abdominal pain at this time. She had shortness of breath earlier but now is improved. She has not had any chest pain. Her heart rate is now controlled. PAST MEDICAL HISTORY Positive for: 1. Atrial fibrillation with rapid ventricular response. 2. Hypertension. 3. Dyslipidemia. 4. Congestive heart failure. Echocardiogram on 10/07 showed ejection fraction of 50-55%, severe mitral regurgitation and dilated left atrium. 5. History of hysterectomy. 6. Tonsillectomy. 7. Left cornea transplant. 8. Bilateral cataract surgery. 9. Appendectomy. MEDICATIONS Include: 1. Xarelto 20 milligrams daily. 2. Metoprolol 100 milligrams twice a day. 3. Pravastatin 40 milligrams daily. 4. Digoxin 0.25 milligrams. 5. Diltiazem 120 milligrams daily. 6. Furosemide 20 milligrams daily. 7. Pantoprazole. 8. Piperacillin. ALLERGIES CYMBALTA. SOCIAL HISTORY The patient does not smoke. She does not drink alcohol. FAMILY HISTORY Negative for heart disease. REVIEW OF SYSTEMS Otherwise negative. PHYSICAL EXAMINATION VITAL SIGNS: Blood pressure 104/51, pulse 65 and irregular. HEENT: Negative. 2+ carotid upstroke. No bruits. LUNGS: Clear. HEART: Irregular with no murmur, gallop or rub. ABDOMEN: Soft. No bruits. EXTREMITIES: Without edema. 2+ distal pulses. NEUROLOGICAL: Grossly nonfocal. EKG was reviewed and showed atrial fibrillation with slow ventricular response, nonspecific T wave changes. LABORATORY DATA Hemoglobin 12.0. Potassium 4.4. Creatinine 1.1. AST 83 and 66. ALT 58 and 67. CK 21. Troponin negative. BNP 356. DIAGNOSES 1. Possible gallstone pancreatitis. 2. Atrial fibrillation. 3. Congestive heart failure, chronic, diastolic dysfunction. 4. Hypertension. 5. Severe mitral regurgitation. 6. Dyslipidemia. DISPOSITION Ms. Guthrie will continue her current medical program including rate control with metoprolol and diltiazem. We will decrease the dose of her digoxin. I recommend to continue anticoagulation with Xarelto which can be held for 48 hours if surgical intervention is necessary. I will follow Ms. Guthrie for cardiology during her hospitalization. I will also see her back in followup in our office after discharge. MD HECTOR Johansen/KK /3:52 PM /6:32 PM [email or web address]
[2016-10-20] MEDS: PRAVASTATIN SOD 40 MG TAB PO SCH (21:59)
[2016-10-20] MEDS: ALPRAZolam 0.25 MG TAB PO PRN (22:26)
[2016-10-21] VITALS (28 sets, daily range): BP systolic 119–151; BP diastolic 51–83; PULSE 58–77; RESP 14–18; TEMP 97.7–98.3; O2SAT 95–99
[2016-10-21] MEDS: ACETAMINOPHEN/HYDROcodone 325 MG/5 MG TAB PO PRN ×4 (03:49→20:16)
[2016-10-21] MEDS: PIPERACIL-TAZO 3.375 GM PREMIX 50 ML IV SCH (03:50)
--- NOTE | 2016-10-21 06:05 | RADRPT ---
EXAM DATE/TIME: 10/21/2016 04:44 [facility] COMPARISON: CHEST SINGLE AP, October 18, 2016, 17:50. INDICATIONS : Shortness of breath. MEDICAL HISTORY : None. SURGICAL HISTORY : None. ENCOUNTER: Initial ACUITY: 3 days PAIN SCORE: 0/10 LOCATION: Bilateral chest FINDINGS: Single AP view of the chest. The lungs are clear. Cardiomediastinal silhouette within normal limits. No evidence of pleural effusion or pneumothorax. CONCLUSION: No acute cardiopulmonary disease identified. Guido Young MD on October 21, 2016 at 6:02 Board Certified Radiologist. This report was verified electronically.
[2016-10-21 06:40] LABS: HEMATOCRIT 34.2 % (35.0-46.0); MEAN CELL VOLUME 85.1 FL (80.0-100.0); MEAN CORPUSCULAR HEMOGLOBIN 27.2 PG (27.0-34.0); MEAN CORPUSCULAR HGB CONC 31.9 % (32.0-36.0); PLATELET COUNT 171 TH/MM3 (150-450); RED BLOOD COUNT 4.02 MIL/MM3 (4.00-5.30); RED CELL DISTRIBUTION WIDTH 15.4 % (11.6-17.2); REVIEW FLAG FINAL; WHITE BLOOD COUNT 6.7 TH/MM3 (4.0-11.0)
[2016-10-21 07:06] LABS: BICARBONATE 28.6 MEQ/L (21.0-32.0); POTASSIUM 3.3 MEQ/L (3.5-5.1)
[2016-10-21] MEDS ORDERED: POTASSIUM CHLORIDE 10 MEQ CONTROLLED RELEASE TAB PO ONE (09:00)
[2016-10-21] MEDS ORDERED: POTASSIUM CHLORIDE 20 MEQ CONTROLLED RELEASE TAB PO ONE (09:00)
[2016-10-21] MEDS: RIVAROXABAN 20 MG TAB PO SCH (09:10)
[2016-10-21] MEDS: DILTIAZEM-CD 120 MG CAP ER PO SCH (09:10)
[2016-10-21] MEDS: PANTOPRAZOLE SOD 20 MG DELAYED RELEASE TAB PO SCH ×2 (09:10→20:16)
[2016-10-21] MEDS: METOPROLOL TARTRATE 100 MG TAB PO SCH ×2 (09:10→20:16)
[2016-10-21] MEDS: FUROSEMIDE 20 MG TAB PO SCH (09:10)
[2016-10-21] MEDS: SODIUM CHLORIDE 0.9% FLUSH 5 ML FLUSH FLUSH SCH ×2 (09:11→20:17)
[2016-10-21] MEDS: DIGOXIN 0.25 MG TAB PO SCH (09:11)
[2016-10-21] MEDS ORDERED: LEVOFLOXACIN 750 MG TAB PO SCH (09:30)
[2016-10-21] MEDS ORDERED: VANCOMYCIN 1,000 MG/NS 250 ML IV SCH ×2 (10:00)
--- NOTE | 2016-10-21 10:14 | HHI.PR ---
Subjective Remarks f/u for abdominal pain. patient is doing well. She is tolerating PO intake. Denied any N/V remains afebrile. denied any SOB or cough. Patient's nurse at bedside and stated no issues. patient will get PT today. Objective Vitals Vital Signs Date Time Temp Pulse Resp B/P Pulse Ox O2 Delivery O2 Flow Rate FiO2 10/21/16 10:00 68 10/21/16 09:00 64 10/21/16 08:00 64 10/21/16 08:00 95 Room Air 10/21/16 07:30 97.7 62 16 148/69 95 10/21/16 07:00 58 10/21/16 06:00 58 10/21/16 05:00 65 10/21/16 04:00 60 10/21/16 03:00 98.1 64 18 119/51 95 10/21/16 03:00 61 10/21/16 03:00 93 Room Air 10/21/16 02:00 65 10/21/16 01:00 60 10/21/16 00:00 62 10/20/16 23:00 58 10/20/16 23:00 93 Room Air 10/20/16 23:00 98.6 72 18 129/79 93 10/20/16 22:00 68 10/20/16 21:37 96 21 10/20/16 21:00 62 10/20/16 20:00 56 10/20/16 19:00 Room Air 10/20/16 19:00 98.6 70 16 115/68 98 10/20/16 19:00 65 10/20/16 18:00 57 10/20/16 17:00 65 10/20/16 16:00 71 10/20/16 15:34 99 Nasal Cannula 1.00 10/20/16 15:00 56 10/20/16 15:00 97.6 63 16 104/51 98 10/20/16 14:17 Nasal Cannula 2.00 10/20/16 14:00 59 10/20/16 13:00 72 10/20/16 12:00 62 10/20/16 11:00 99 Nasal Cannula 2.00 Humidified 10/20/16 11:00 98.1 65 16 129/71 99 10/20/16 11:00 61 I/O 3/13/17 310/20/16 10/21/16 10/21/16 10/21/16 07:00 15:00 23:00 07:00 15:00 23:00 Intake Total 440 ml 830 ml 120 ml Output Total 600 ml 1150 ml 200 ml Balance -160 ml -320 ml -80 ml Intake Oral 240 ml 480 ml 120 ml IV Total 200 ml 350 ml Output Urine Total 600 ml 1150 ml 200 ml # Bowel Movements 0 Result Diagram: 10/21/1660910/21/16609 Objective Remarks GENERAL: in NAD CARDIOVASCULAR: Regular rate and rhythm without murmurs, gallops, or rubs. RESPIRATORY: Breath sounds equal bilaterally. No accessory muscle use. GASTROINTESTINAL: Abdomen soft, nondistended, nontender to palpation. MUSCULOSKELETAL: No cyanosis, or edema. BACK: Nontender without obvious deformity. No CVA tenderness. Medications and IVs Current Medications Sodium Chloride (NS 1000 ml Inj) 1,000 ml @ 1,000 mls/hr Q1H IV Last administered on 10/18/16 18:03; Start 10/18/16 at 17:24; Stop 10/18/16 at 18:23 ; Status DC Iohexol 96 ml 96 ml STK-MED ONCE IV Last administered on 10/18/16 20:23; Start 10/18/16 at 20:23; Stop 10/18/16 at 20:27; Status DC Piperacillin Sod/ Tazobactam Sod 50 ml @ 100 mls/hr ONCE ONCE IV ; Start 10/18 at 21:00; Stop 10/18/16 at 21:00; Status DC Piperacillin Sod/ Tazobactam Sod 100 ml @ 200 mls/hr ONCE ONCE IV Last administered on 10/18/16 22:44; Start 10/18/16 at 21:00; Stop 10/18/16 at 21:29 ; Status DC Vancomycin HCl/ Sodium Chloride (Vancomycin Inj/ NS 250 ml Inj) 262.5 ml @ 262.5 mls/ hr ONCE ONCE IV Last administered on 10/18/16 23:22; Start at 21:15; Stop 10/18/16 at 22:17; Status DC Furosemide 60 mg 60 mg ONCE ONCE IV PUSH Last administered on 10/18/16 22:05 ; Start 10/18/16 at 22:00; Stop 10/18/16 at 22:01; Status DC Pharmacy Profile Note 0 ml @ 0 mls/hr UNSCH OTHER ; Start 10/18/16 at 22:00; Stop 10/21/16 at 09:19; Status DC Piperacillin Sod/ Tazobactam Sod (Zosyn 3.375 Gm Premix) 50 ml @ 100 mls/hr Q6H IV Last administered on 10/21/16 03:50; Start 10/19/16 at 03:00; Stop at 09:19; Status DC Albuterol/ Ipratropium (Duoneb Neb) 1 ampule Q4HR NEB PRN NEB SOB/WHEEZING Last administered on 10/18/16 22:37; Start 10/18/16 at 22:00 IV Flush (NS Flush) 2 ml UNSCH PRN FLUSH FLUSH AFTER USING IV ACCESS; Start 06/26 at 22:00 IV Flush (NS Flush) 2 ml BID FLUSH Last administered on 10/21/16 09:11; Start 10/19/16 at 09:00 Ondansetron HCl (Zofran Inj) 4 mg Q6H PRN IVP NAUSEA OR VOMITING Last administered on 10/20/16 17:59; Start 10/18/16 at 22:00 Bisacodyl (Dulcolax Supp) 10 mg DAILY PRN [place] CONSTIPATION; Start 10/18/16 at 22 :00 Acetaminophen (Tylenol) 650 mg Q6H PRN PO FEVER/PAIN SCALE 1 TO 2; Start at 22:00 Acetaminophen/ Hydrocodone Bitart ([place] 5-325 Mg) 1 tab Q4H PRN PO PAIN SCALE 3 TO 5 Last administered on 10/21/16 03:49; Start 10/18/16 at 22:00 Morphine Sulfate (Morphine Inj) 2 mg Q3H PRN IV Pain 6-10; Start 10/18/16 at 22 :00 Alprazolam (Xanax) 0.25 mg HS PRN PO ANXIETY Last administered on 10/20/16 22: 26; Start 10/18/16 at 22:00 Digoxin (Lanoxin) 0.25 mg DAILY PO Last administered on 10/20/16 08:53; Start 10/19/16 at 09:00; Stop 10/20/16 at 16:56; Status DC Diltiazem HCl (Cardizem Cd) 120 mg DAILY PO Last administered on 10/21/16 09: 10; Start 10/19/16 at 09:00 Furosemide (Lasix) 20 mg DAILY PO Last administered on 10/21/16 09:10; Start 10/19/16 at 09:00 Metoprolol Tartrate (Lopressor) 100 mg BID PO Last administered on 10/19/16 09 :38; Start 10/19/16 at 09:00; Stop 10/19/16 at 16:36; Status DC Pantoprazole Sodium (Protonix) 20 mg BID PO Last administered on 10/21/16 09: 10; Start 10/19/16 at 09:00 Pravastatin Sodium (Pravachol) 40 mg HS PO CM Last administered on 10/20/16 21: 59; Start 10/19/16 at 21:00 Calcium Gluconate 1 gm 1 gm ONCE ONCE IV PUSH ; Start 10/18/16 at 22:45; Stop 10/18/16 at 22:46; Status UNV Calcium Gluconate/ Sodium Chloride (Calcium Gluconate Inj/NS Inj) 110 ml @ 110 mls/hr ONCE ONCE IV Last administered on 10/18/16 23:22; Start 10/18/16 at 23 :00; Stop 10/18/16 at 23:59; Status DC Metoprolol Tartrate (Lopressor Inj) 5 mg ONCE ONCE IV PUSH Last administered on 10/19/16 03:32; Start 10/19/16 at 03:30; Stop 10/19/16 at 03:31; Status DC Metoprolol Tartrate 100 mg 100 mg BID PO Last administered on 10/21/16 09:10; Start 10/20/16 at 09:00 Vancomycin HCl/ Sodium Chloride (Vancomycin Inj/ NS 250 ml Inj) 250 ml @ 250 mls/hr ONCE ONCE IV Last administered on 10/20/16 10:43; Start 10/20/16 at 10 :00; Stop 10/20/16 at 11:12; Status DC Rivaroxaban (Xarelto) 20 mg DAILY PO Last administered on 10/21/16 09:10; Start 10/20/16 at 11:00 Digoxin (Lanoxin) 0.125 mg DAILY PO Last administered on 10/21/16 09:11; Start 10/21/16 at 09:00 Miscellaneous (Pill Splitter) 1 ea UNSCH PRN OTHER SEE LABEL COMMENTS; Start at 17:15 Potassium Chloride (KCl) 30 meq ONCE ONCE PO Last administered on 10/21/16 09 :13; Start 10/21/16 at 09:00; Stop 10/21/16 at 09:01; Status DC Potassium Chloride 20 meq 20 meq ONCE ONCE PO Last administered on 10/21/16 09:13; Start 10/21/16 at 09:00; Stop 10/21/16 at 09:01; Status DC Vancomycin HCl/ Sodium Chloride (Vancomycin Inj/ NS 250 ml Inj) 250 ml @ 250 mls/hr Q24H IV ; Start 10/21/16 at 10:00; Stop 10/21/16 at 10:00; Status DC Miscellaneous Information SPECIFIC LAB TO BE DRAWN:VANCOMYCIN TROUGH DATE TO... ONCE ONCE XX ; Start 10/23/16 at 09:45; Stop 10/23/16 at 09:46 Levofloxacin (Levaquin) 750 mg DAILY PO ; Start 10/21/16 at 09:30 A/P Problem List: (1) Cholecystitis ICD Code: K81.9 Status: Acute (2) PNA (pneumonia) ICD Code: J18.9 Status: Acute (3) Hypoxia ICD Code: R09.02 Status: Acute (4) CHF (congestive heart failure) ICD Code: I50.9 Status: Acute (5) A-fib ICD Code: I48.91 Status: Acute (6) Hypocalcemia ICD Code: E83.51 Status: Acute Assessment and Plan Acute abdominal pain -resolved quickly so maybe due to gallstones -CT Abd/Pelvis w/ gallbladder wall thickening and some distention, fluid tracking around the pancreatic head, possibly early cholecystitis and pancreatitis. - Dr. Tesfaye consulted and stated probably due to pancreatitis. patient poor candidate for surgery. -clinically improving. d/c antibiotics and start levaquin since patient was treated empirically for cholecystitis. 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 d/c antibiotics. - DuoNeb prn. Hypoxia -unsure etiology maybe due to pain. - improved. CHF - Chronic. Diastolic. - Recent diagnosis of CHF on last admit 10/07-10/11/16 for A-fib w/ RVR, Echo w/ EF 50-55%, Severe MR and LA Dilatation, continue w/ Lasix. -Dr. Guido consulted. decreased digoxin. A-fib: Controlled. -Digoxin decreased by Cards, Diltiazem and Metoprolol. on Xarelto. DVT Prophylaxis: Xarelto. Discharge Planning will d/c IV antibiotic and start oral. if she continues to do well she can be d/ c to home tomorrow. Problem Qualifiers (1) CHF (congestive heart failure): Qualified Code: I50.9 - Congestive heart failure, unspecified congestive heart failure chronicity, unspecified congestive heart failure type Billie Matthews MD Oct 21, 2016 10:14
[2016-10-21] MEDS: ONDANSETRON HCL 4 MG/2 ML VIAL IVP PRN (10:26)
--- NOTE | 2016-10-21 13:11 | HHI.PR ---
Subjective Subjective Notes Asking if Dr. Barbosa works with Dr. Tesfaye Reports mild abdominal pain Not much appetite Objective Vitals/I&O Vital Signs Date Time Temp Pulse Resp B/P Pulse Ox O2 Delivery O2 Flow Rate FiO2 10/21/16 11:14 99 Room Air 10/21/16 11:13 98.3 62 16 135/67 10/20/16 21:37 21 10/20/16 15:34 1.00 Labs Laboratory Tests Test 10/21/16 06:10 White Blood Count 6.7 Red Blood Count 4.02 Hemoglobin 10.9 Hematocrit 34.2 Mean Corpuscular Volume 85.1 Mean Corpuscular Hemoglobin 27.2 Mean Corpuscular Hemoglobin 31.9 Concent Red Cell Distribution Width 15.4 Platelet Count 171 Mean Platelet Volume 9.4 Sodium Level 138 Potassium Level 3.3 Chloride Level 100 Carbon Dioxide Level 28.6 Anion Gap 9 Blood Urea Nitrogen 11 Creatinine 0.92 Estimat Glomerular Filtration 58 Rate Random Glucose 93 Calcium Level 8.1 Random Vancomycin Level 11.3 Date/Time Procedure Status Source Growth 10/18/16 22:30 Aerobic Blood Culture - Preliminary Resulted Blood Peripheral NO GROWTH IN 3 DAYS 10/18/16 22:30 Anaerobic Blood Culture - Preliminary Resulted Blood Peripheral NO GROWTH IN 3 DAYS Cardiovascular: Regular Lungs: Clear Abdomen: Other (RLQ pain with palpation ) Extremities: No edema A/P Assessment and Plan 86 year old female with diffuse abdominal pain; ? etiology gallbladder -HIDA today -Continue regular diet -Continue medical management -Patient poor surgical candidate Attending Note - Dr. Tesfaye Abdomen tender in both lower quadrants only; not in RUQ The exam, history, and the medical decision-making described in the above note were completed with the assistance of the mid-level provider. I reviewed and agree with the findings presented. I attest that I had a [id number] encounter with the patient on the same day, and personally performed and documented my assessment and findings in the medical record. Jayda Cadena Oct 21, 2016 13:11 Kirby Tesfaye MD Oct 27, 2016 21:29
--- NOTE | 2016-10-21 15:54 | PD.CARD.PN ---
Subjective Subjective Remarks No CP or SOB, feels tired, insomnia, mild abd pain Objective Medications Current Medications Medications (Trade) Dose Ordered Sig/Eduin Route Start Time Stop Time Status Last Admin (NS Flush) 2 ml UNSCH PRN FLUSH 10/18/16 22:00 (NS Flush) 2 ml BID FLUSH 10/19/16 09:00 10/21/16 09:11 (Zofran Inj) 4 mg Q6H PRN IVP 10/18/16 22:00 10/21/16 10:26 (Dulcolax Supp) 10 mg DAILY PRN VT 10/18/16 22:00 (Tylenol) 650 mg Q6H PRN PO 10/18/16 22:00 ([place] 5-325 Mg) 1 tab Q4H PRN PO 10/18/16 22:00 10/21/16 15:17 (Morphine Inj) 2 mg Q3H PRN IV 10/18/16 22:00 (Xanax) 0.25 mg HS PRN PO 10/18/16 22:00 10/20/16 22:26 (Cardizem Cd) 120 mg DAILY PO 10/19/16 09:00 10/21/16 09:10 (Lasix) 20 mg DAILY PO 10/19/16 09:00 10/21/16 09:10 (Protonix) 20 mg BID PO 10/19/16 09:00 10/21/16 09:10 (Pravachol) 40 mg HS PO 10/19/16 21:00 10/20/16 21:59 (Lopressor) 100 mg BID PO 10/20/16 09:00 10/21/16 09:10 (Xarelto) 20 mg DAILY PO 10/20/16 11:00 10/21/16 09:10 (Lanoxin) 0.125 mg DAILY PO 10/21/16 09:00 10/21/16 09:11 (Pill Splitter) 1 ea UNSCH PRN OTHER 10/20/16 17:15 (Levaquin) 750 mg Q48H PO 10/23/16 09:00 Vital Signs / I&O Vital Signs Date Time Temp Pulse Resp B/P Pulse Ox O2 Delivery O2 Flow Rate FiO2 10/21/16 15:22 95 Room Air 10/21/16 15:21 97.9 65 16 124/68 95 10/21/16 14:00 72 10/21/16 13:00 62 10/21/16 12:00 58 10/21/16 11:14 99 Room Air 10/21/16 11:13 98.3 62 16 135/67 99 10/21/16 11:00 61 10/21/16 10:00 68 10/21/16 09:00 64 10/21/16 08:00 64 10/21/16 08:00 95 Room Air 10/21/16 07:30 97.7 62 16 148/69 95 10/21/16 07:00 58 10/21/16 06:00 58 10/21/16 05:00 65 10/21/16 04:00 60 10/21/16 03:00 98.1 64 18 119/51 95 10/21/16 03:00 61 10/21/16 03:00 93 Room Air 10/21/16 02:00 65 10/21/16 01:00 60 10/21/16 00:00 62 10/20/16 23:00 58 10/20/16 23:00 93 Room Air 10/20/16 23:00 98.6 72 18 129/79 93 10/20/16 22:00 68 10/20/16 21:37 96 21 10/20/16 21:00 62 10/20/16 20:00 56 10/20/16 19:00 Room Air 10/20/16 19:00 98.6 70 16 115/68 98 10/20/16 19:00 65 10/20/16 18:00 57 10/20/16 17:00 65 10/20/16 16:00 71 I/O 10/20/16 10/20/16 10/20/16 10/21/16 10/21/16 10/21/16 07:00 15:00 23:00 07:00 15:00 23:00 Intake Total 440 ml 830 ml 120 ml Output Total 600 ml 1150 ml 200 ml Balance -160 ml -320 ml -80 ml Intake Oral 240 ml 480 ml 120 ml IV Total 200 ml 350 ml Output Urine Total 600 ml 1150 ml 200 ml # Bowel Movements 0 Physical Exam GENERAL: In NAD SKIN: Warm and dry. HEAD: Normocephalic. EYES: No scleral icterus. No injection or drainage. NECK: Supple, trachea midline. No JVD or lymphadenopathy. CARDIOVASCULAR: Irregular rate and rhythm without murmurs, gallops, or rubs. RESPIRATORY: Breath sounds equal bilaterally. No accessory muscle use. GASTROINTESTINAL: Abdomen soft, nondistended. MUSCULOSKELETAL: No cyanosis, or edema. Laboratory Laboratory Tests Test 10/21/16 06:10 White Blood Count 6.7 TH/MM3 Red Blood Count 4.02 MIL/MM3 Hemoglobin 10.9 GM/DL Hematocrit 34.2 % Mean Corpuscular Volume 85.1 FL Mean Corpuscular Hemoglobin 27.2 PG Mean Corpuscular Hemoglobin 31.9 % Concent Red Cell Distribution Width 15.4 % Platelet Count 171 TH/MM3 Mean Platelet Volume 9.4 FL Sodium Level 138 MEQ/L Potassium Level 3.3 MEQ/L Chloride Level 100 MEQ/L Carbon Dioxide Level 28.6 MEQ/L Anion Gap 9 MEQ/L Blood Urea Nitrogen 11 MG/DL Creatinine 0.92 MG/DL Estimat Glomerular Filtration 58 ML/MIN Rate Random Glucose 93 MG/DL Calcium Level 8.1 MG/DL Random Vancomycin Level 11.3 COMMENT Imaging Last Impressions Head CT 10/18/16 1731 Signed Impressions: Service Date/Time: Tuesday, October 18, 2016 20:16 - CONCLUSION: No acute intracranial abnormality. Seth Taveras MD Abdomen/Pelvis CT 10/18/16 1724 Signed Impressions: Service Date/Time: Tuesday, October 18, 2016 20:15 - CONCLUSION: 1. Gallbladder wall thickening and some distention. There is also some fluid tracking around the pancreatic head. Differential diagnosis early cholecystitis and pancreatitis. 2. Improvement in pleural effusions since October 07. Basilar lung fibrotic changes. Maximus Mike MD Chest X-Ray 10/18/16 0000 Signed Impressions: Service Date/Time: Tuesday, October 18, 2016 17:50 - CONCLUSION: Bibasilar consolidation and small effusions. Elevated right hemidiaphragm, chronic. Seth Taveras MD Assessment and Plan Problem List: (1) Pancreatitis, gallstone (2) Atrial fibrillation with RVR (3) CHF (congestive heart failure) (4) HTN (hypertension) (5) MR (mitral regurgitation) (6) Dyslipidemia Assessment and Plan Continue rate control of AF. Continue anticoagulation with Xarelto, hold for 48 hrs if intervention needed. Increase activity. Problem Qualifiers (1) CHF (congestive heart failure): Qualified Code: I50.9 - Congestive heart failure, unspecified congestive heart failure chronicity, unspecified congestive heart failure type Stacia Guido MD Oct 21, 2016 15:53
[2016-10-21] MEDS: PRAVASTATIN SOD 40 MG TAB PO SCH (20:16)
[2016-10-22] VITALS (17 sets, daily range): BP systolic 135–152; BP diastolic 74–82; PULSE 58–78; RESP 14–16; TEMP 97.3–98.1; O2SAT 96–99
[2016-10-22 00:02] LABS: C. DIFF EPI 027 PRESUMPTIVE NEGATIVE (NEGATIVE); C. DIFF TOXIN PCR NEGATIVE (NEGATIVE)
[2016-10-22] MEDS: ONDANSETRON HCL 4 MG/2 ML VIAL IVP PRN ×2 (01:09→15:51)
[2016-10-22] MEDS: ALPRAZolam 0.25 MG TAB PO PRN (01:09)
[2016-10-22] MEDS: ACETAMINOPHEN/HYDROcodone 325 MG/5 MG TAB PO PRN ×3 (01:10→15:51)
[2016-10-22 06:18] LABS: HEMATOCRIT 37.9 % (35.0-46.0); MEAN CELL VOLUME 84.7 FL (80.0-100.0); MEAN CORPUSCULAR HEMOGLOBIN 27.7 PG (27.0-34.0); MEAN CORPUSCULAR HGB CONC 32.7 % (32.0-36.0); PLATELET COUNT 203 TH/MM3 (150-450); RED BLOOD COUNT 4.48 MIL/MM3 (4.00-5.30); RED CELL DISTRIBUTION WIDTH 15.3 % (11.6-17.2); REVIEW FLAG FINAL; WHITE BLOOD COUNT 8.2 TH/MM3 (4.0-11.0)
[2016-10-22 06:53] LABS: ALKALINE PHOSPHATASE 45 U/L (45-117); ALT (GPT) 33 U/L (10-53); ANION GAP 9 MEQ/L (5-15); AST (GOT) 29 U/L (15-37); BICARBONATE 26.4 MEQ/L (21.0-32.0); BLOOD UREA NITROGEN 9 MG/DL (7-18); CHLORIDE 102 MEQ/L (98-107); GLOMERULAR FILTRATION RATE 73 ML/MIN (>89); POTASSIUM 4.2 MEQ/L (3.5-5.1); SODIUM (NA) 137 MEQ/L (136-145); TOTAL BILIRUBIN ADULT 0.7 MG/DL (0.2-1.0)
[2016-10-22] MEDS: DILTIAZEM-CD 120 MG CAP ER PO SCH (11:38)
[2016-10-22] MEDS: METOPROLOL TARTRATE 100 MG TAB PO SCH (11:38)
[2016-10-22] MEDS: RIVAROXABAN 20 MG TAB PO SCH (11:38)
[2016-10-22] MEDS: PANTOPRAZOLE SOD 20 MG DELAYED RELEASE TAB PO SCH (11:38)
[2016-10-22] MEDS: SODIUM CHLORIDE 0.9% FLUSH 5 ML FLUSH FLUSH SCH (11:39)
[2016-10-22] MEDS: DIGOXIN 0.25 MG TAB PO SCH (11:39)
[2016-10-22] MEDS: FUROSEMIDE 20 MG TAB PO SCH (11:39)
--- NOTE | 2016-10-22 11:41 | RADRPT ---
EXAM DATE/TIME: 10/22/2016 08:55 [facility] COMPARISON: No previous studies available for comparison. INDICATIONS : Abdomen pain and nausea. DOSE: 4.2 mCi Tc99m Mebrofenin IV MEDICAL HISTORY : Hypertension. Congestive heart failure. Cerebrovascular disease. SURGICAL HISTORY : Tonsillectomy. Hysterectomy. ENCOUNTER: Initial ACUITY: 1 day PAIN SCALE: 0/10 LOCATION: Bilateral upper quadrant TECHNIQUE: Following the intravenous administration of radiotracer, dynamic sequential images were performed wit h continuous acquisition. FINDINGS: HEPATIC KINETICS: There is prompt uptake of radiotracer in the liver. No focal defects are seen. There is normal rate of washout from the hepatic parenchyma. BILIARY CLEARANCE: Activity is first seen in the extrahepatic biliary system at 10 minutes. There is normal excretion i nto the small bowel. GALLBLADDER: Activity is first seen in the gallbladder at 20 minutes. Common bile duct kinetics are normal and th ere is no evidence of biliary obstruction. BILIARY ENTRIC REFLUX: None observed. CONCLUSION: No sign of obstruction. Seth Mclaughlin MD on October 22, 2016 at 11:39 Board Certified Radiologist. This report was verified electronically.
--- NOTE | 2016-10-22 14:11 | HHI.PR ---
Subjective Subjective Notes Resting in bed Did not sleep well last night because door kept opening Objective Vitals/I&O Vital Signs Date Time Temp Pulse Resp B/P Pulse Ox O2 Delivery O2 Flow Rate FiO2 10/22/16 13:04 60 10/22/16 12:00 98.0 16 143/81 98 10/22/16 12:00 Room Air 10/21/16 22:01 21 10/20/16 15:34 1.00 Labs Laboratory Tests Test 10/21/16 10/22/16 15:28 05:21 Stool C. difficile Toxin (PCR) NEGATIVE Stl C. difficile Toxin PRESUMPTIVE Epiderm 027 NEGATIVE White Blood Count 8.2 Red Blood Count 4.48 Hemoglobin 12.4 Hematocrit 37.9 Mean Corpuscular Volume 84.7 Mean Corpuscular Hemoglobin 27.7 Mean Corpuscular Hemoglobin 32.7 Concent Red Cell Distribution Width 15.3 Platelet Count 203 Mean Platelet Volume 9.8 Sodium Level 137 Potassium Level 4.2 Chloride Level 102 Carbon Dioxide Level 26.4 Anion Gap 9 Blood Urea Nitrogen 9 Creatinine 0.75 Estimat Glomerular Filtration 73 Rate Random Glucose 90 Calcium Level 9.0 Total Bilirubin 0.7 Aspartate Amino Transf 29 (AST/SGOT) Alanine Aminotransferase 33 (ALT/SGPT) Alkaline Phosphatase 45 Total Protein 7.2 Albumin 3.1 Date/Time Procedure Status Source Growth 10/18/16 22:30 Aerobic Blood Culture - Preliminary Resulted Blood Peripheral NO GROWTH IN 4 DAYS 10/18/16 22:30 Anaerobic Blood Culture - Preliminary Resulted Blood Peripheral NO GROWTH IN 4 DAYS Cardiovascular: Regular Lungs: Clear Abdomen: Other (mild tender in RIGHT and LEFT sides of pelvis ) Extremities: No edema A/P Assessment and Plan 86 year old female with diffuse abdominal pain; ? etiology gallbladder -HIDA negative -Tolerating regular diet -Continue medical management -Patient poor surgical candidate -GS clear for DC -Follow up with Dr. Barbosa if needed in the office Attending Note - Dr. Tesfaye Abdomen benign; no need for GB surgery. This was explained to pt. given neg HIDA scan and physical findings. The exam, history, and the medical decision-making described in the above note were completed with the assistance of the mid-level provider. I reviewed and agree with the findings presented. I attest that I had a [id number] encounter with the patient on the same day, and personally performed and documented my assessment and findings in the medical record. Jayda Cadena Oct 22, 2016 14:11 Kirby Tesfaye MD Oct 27, 2016 21:37
[2016-10-22] MEDS ORDERED: DIGO0.25 PO (15:46)
[2016-10-22] MEDS ORDERED: LEVA750T PO (15:46)
--- NOTE | 2016-10-22 15:47 | HHI.DCPOC ---
Discharge Care Plan Diagnosis: (1) Pancreatitis, gallstone (2) A-fib Goals to Promote Your Health * To prevent worsening of your condition and complications * To maintain your health at the optimal level Directions to Meet Your Goals Take your medications as prescribed Follow your dietary instruction Follow activity as directed Keep your appointments as scheduled Take your immunizations and boosters as scheduled If your symptoms worsen call your PCP, if no PCP go to Urgent Care Center or Emergency Room Smoking is Dangerous to Your Health. Avoid second hand smoke Call the 24-hour hour crisis hotline for domestic abuse at Billie Matthews MD Oct 22, 2016 15:47
--- NOTE | 2016-10-22 15:49 | HHI.FF ---
Face to Face Verification Diagnosis: (1) A-fib (2) CHF (congestive heart failure) (3) Pancreatitis, gallstone Physical Therapy Order: Evaluate and Treat, Improve ambulation, Strength and gait training Home Health Nursing Order: Medical education Signs/symptoms of disease process CHF education Medication education-adverse effect I have seen patient Melani Guthrie on 10/22/16. My clinical findings support the need for the requested home health care services because: Deconditioned w/ increased weakness I certify that my clinical findings support that this patient is homebound because: Unsteady gait/balance Poor cardiac reserve Billie Matthews MD Oct 22, 2016 15:49
--- NOTE | 2016-10-22 18:39 | PD.CARD.PN ---
Subjective Subjective Remarks No CP or SOB, feels fine Objective Vital Signs / I&O Vital Signs Date Time Temp Pulse Resp B/P Pulse Ox O2 Delivery O2 Flow Rate FiO2 10/22/16 16:00 98.1 77 16 152/81 99 10/22/16 16:00 99 Room Air 10/22/16 16:00 65 10/22/16 15:00 63 10/22/16 14:00 60 10/22/16 13:04 60 10/22/16 12:02 68 10/22/16 12:00 98.0 77 16 143/81 98 10/22/16 12:00 98 Room Air 10/22/16 08:00 62 10/22/16 08:00 97.3 70 16 135/82 98 10/22/16 08:00 98 Room Air 10/22/16 07:00 66 10/22/16 06:00 62 10/22/16 05:20 98.1 69 147/74 98 10/22/16 05:00 62 10/22/16 04:00 58 10/22/16 03:00 94 Room Air 10/22/16 03:00 68 10/22/16 02:11 96 Room Air 10/22/16 02:00 66 10/22/16 01:15 97.6 69 14 145/77 96 10/22/16 01:00 78 10/22/16 00:00 71 10/21/16 23:00 62 10/21/16 22:01 97 21 10/21/16 22:00 58 10/21/16 21:00 74 10/21/16 20:00 70 10/21/16 20:00 97.9 69 14 151/83 97 10/21/16 20:00 98 Room Air 10/21/16 19:00 60 I/O 10/21/16 10/21/16 10/21/16 10/22/16 10/22/16 10/22/16 07:00 15:00 23:00 07:00 15:00 23:00 Intake Total 120 ml 240 ml Output Total 200 ml 800 ml Balance -80 ml -800 ml 240 ml Intake Oral 120 ml 240 ml IV Total 0 ml Output Urine Total 200 ml 800 ml # Voids 3 # Bowel Movements 0 3 1 Physical Exam GENERAL: In NAD SKIN: Warm and dry. HEAD: Normocephalic. EYES: No scleral icterus. No injection or drainage. NECK: Supple, trachea midline. No JVD or lymphadenopathy. CARDIOVASCULAR: Irregular rate and rhythm without murmurs, gallops, or rubs. RESPIRATORY: Breath sounds equal bilaterally. No accessory muscle use. GASTROINTESTINAL: Abdomen soft, nondistended. MUSCULOSKELETAL: No cyanosis, or edema. Laboratory Laboratory Tests Test 10/22/16 05:21 White Blood Count 8.2 TH/MM3 Red Blood Count 4.48 MIL/MM3 Hemoglobin 12.4 GM/DL Hematocrit 37.9 % Mean Corpuscular Volume 84.7 FL Mean Corpuscular Hemoglobin 27.7 PG Mean Corpuscular Hemoglobin 32.7 % Concent Red Cell Distribution Width 15.3 % Platelet Count 203 TH/MM3 Mean Platelet Volume 9.8 FL Sodium Level 137 MEQ/L Potassium Level 4.2 MEQ/L Chloride Level 102 MEQ/L Carbon Dioxide Level 26.4 MEQ/L Anion Gap 9 MEQ/L Blood Urea Nitrogen 9 MG/DL Creatinine 0.75 MG/DL Estimat Glomerular Filtration 73 ML/MIN Rate Random Glucose 90 MG/DL Calcium Level 9.0 MG/DL Total Bilirubin 0.7 MG/DL Aspartate Amino Transf 29 U/L (AST/SGOT) Alanine Aminotransferase 33 U/L (ALT/SGPT) Alkaline Phosphatase 45 U/L Total Protein 7.2 GM/DL Albumin 3.1 GM/DL Imaging Last Impressions Hepatobiliary Scan Nuclear Medicine 10/22/16 0000 Signed Impressions: Service Date/Time: Saturday, October 22, 2016 08:55 - CONCLUSION: No sign of obstruction. Seth Mclaughlin MD Chest X-Ray 10/21/16 0600 Signed Impressions: Service Date/Time: Friday, October 21, 2016 04:44 - CONCLUSION: No acute cardiopulmonary disease identified. Guido Young MD Head CT 10/18/16 1731 Signed Impressions: Service Date/Time: Tuesday, October 18, 2016 20:16 - CONCLUSION: No acute intracranial abnormality. Seth Taveras MD Abdomen/Pelvis CT 10/18/16 1724 Signed Impressions: Service Date/Time: Tuesday, October 18, 2016 20:15 - CONCLUSION: 1. Gallbladder wall thickening and some distention. There is also some fluid tracking around the pancreatic head. Differential diagnosis early cholecystitis and pancreatitis. 2. Improvement in pleural effusions since October 07. Basilar lung fibrotic changes. Maximus Mike MD Assessment and Plan Problem List: (1) Pancreatitis, gallstone (2) Atrial fibrillation with RVR (3) CHF (congestive heart failure) (4) HTN (hypertension) (5) MR (mitral regurgitation) (6) Dyslipidemia Assessment and Plan AF rate well controlled. Continue anticoagulation with Xarelto. Discharge home. Will schedule outpatient f/u. Problem Qualifiers (1) CHF (congestive heart failure): Qualified Code: I50.9 - Congestive heart failure, unspecified congestive heart failure chronicity, unspecified congestive heart failure type Stacia Guido MD Oct 22, 2016 18:39
[2016-10-23] MEDS ORDERED: LEVOFLOXACIN 750 MG TAB PO SCH (09:00)
[2016-10-23] MEDS ORDERED: PHARMACY ORDERED LAB XX ONE (09:45)
--- NOTE | 2016-10-24 22:54 | HHI.DS ---
Discharge Summary Admission Date Oct 18, 2016 at 21:43 Discharge Date: Oct 22, 2016 Admitting Diagnosis N/V, Cholecystitis, Bilat Pl Effusions, Poss PNA (1) Pancreatitis, gallstone ICD Code: K85.10 Diagnosis: Principal (2) CHF (congestive heart failure) ICD Code: I50.9 Diagnosis: Secondary (3) A-fib ICD Code: I48.91 Diagnosis: Secondary (4) Hypocalcemia ICD Code: E83.51 Diagnosis: Secondary Procedures see hospital course Brief History - From Admission This is an 86-year-old female w/ a PMH of HTN, A-fib on Xarelto, Hyperlipidemia and CHF (Echo 10/07/16 w/ EF 50-55%, Severe MR, Dilated LA) who was brought to the ER for c/o dizziness, abdominal pain, nausea and vomiting starting few hours prior to presentation. Denies fever, chills or diarrhea. Recent admit -10/11/16 for A-fib w/ RVR and pulmonary edema, diagnosed w/ Acute Diastolic CHF and d/c'd home on Lasix. Follows w/ Dr. Guido w/ Cardiology. Today, w/ acute onset of abd pain, nausea/vomiting as above. On arrival, BP 99/63, HR 54 , O2 sat 97% on RA, Afebrile. S/p 1L IVF in ER, repeat BP 117/55, HR 54. CBC at baseline. K+ 5.3. GFR 52. Ca 7.1. Lipase 53. Trop negative. CXR w/ bibasilar consolidations. CT Head w/ no acute findings. CT Abd/Pelvis w/ gallbladder wall thickening and some distention w/ fluid tracking around pancreatic head, suggestive of early cholecystitis and pancreatitis, improved pleural effusion. Dr. Tesfaye consulted by ER physician, plan is for surgical intervention. S/p Zosyn in ER. While in ER, pt w/ acute respiratory distress, O2 sat decreased to 80's, started on BIPAP, s/p Lasix 60mg IV x1. Currently improved. CBC/BMP: 10/22/16 0521 10/22/16 0521 Significant Findings Laboratory Tests Test 10/22/16 05:21 Estimat Glomerular Filtration 73 ML/MIN (>89) Rate Albumin 3.1 GM/DL (3.4-5.0) Imaging Last Impressions Hepatobiliary Scan Nuclear Medicine 10/22/16 0000 Signed Impressions: Service Date/Time: Saturday, October 22, 2016 08:55 - CONCLUSION: No sign of obstruction. Seth Mclaughlin MD Chest X-Ray 10/21/16 0600 Signed Impressions: Service Date/Time: Friday, October 21, 2016 04:44 - CONCLUSION: No acute cardiopulmonary disease identified. Guido Young MD Head CT 10/18/16 1731 Signed Impressions: Service Date/Time: Tuesday, October 18, 2016 20:16 - CONCLUSION: No acute intracranial abnormality. Seth Taveras MD Abdomen/Pelvis CT 10/18/16 1724 Signed Impressions: Service Date/Time: Tuesday, October 18, 2016 20:15 - CONCLUSION: 1. Gallbladder wall thickening and some distention. There is also some fluid tracking around the pancreatic head. Differential diagnosis early cholecystitis and pancreatitis. 2. Improvement in pleural effusions since October 07. Basilar lung fibrotic changes. Maximus Mike MD PE at Discharge GENERAL: in NAD CARDIOVASCULAR: Regular rate and rhythm without murmurs, gallops, or rubs. RESPIRATORY: Breath sounds equal bilaterally. No accessory muscle use. GASTROINTESTINAL: Abdomen soft, nondistended, nontender to palpation. MUSCULOSKELETAL: No cyanosis, or edema. BACK: Nontender without obvious deformity. No CVA tenderness. Pt update on day of discharge f/u for abdominal pain. patient denied any abdominal pain or SOB. She just had HIDA scan and is tolerating PO intake. Did well off antibiotics and remains afebrile. Patient is ambulating with her walker. She is anxious to go home today. Hospital Course Acute abdominal pain -resolved quickly so maybe due to gallstones -CT Abd/Pelvis w/ gallbladder wall thickening and some distention, fluid tracking around the pancreatic head, possibly early cholecystitis and pancreatitis. - Dr. Tesfaye consulted and stated probably due to pancreatitis. patient poor candidate for surgery. -supportive care given and treated conservatively with zosyn. She did well with treatment and was switch to PO levaqin and continued to do well. -patient had HIDA scan done which was also negative. 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 Clinically she did not have symptoms of PNA so CXR repeated and that was negative. Antibiotics discontinued and she did well off antibiotics. Hypoxia -unsure etiology maybe due to pain. - resolved quickly. CHF - Chronic. Diastolic. - Recent diagnosis of CHF on last admit 10/07-10/11/16 for A-fib w/ RVR, Echo w/ EF 50-55%, Severe MR and LA Dilatation, continue w/ Lasix. -Dr. Guido consulted. He decreased digoxin and she did well. A-fib: Controlled. -Digoxin decreased by Cards, Diltiazem and Metoprolol. on Xarelto. Pt Condition on Discharge: Good Discharge Disposition: Disch w/ Home Health Serv Discharge Time: > 30 minutes Discharge Instructions DIET: Follow Instructions for: Heart Healthy Diet Activities you can perform: Regular-No Restrictions Follow up Referrals: Cardiology - 1 Week PCP Follow-up - 1 Week SNF/LONG-TERM/ with [facility] New Medications: Digoxin (Digoxin) 0.25 Mg Tab 0.125 MG PO DAILY atrial fibrillation #30 Ref 0 TAB Levofloxacin (Levaquin) 750 Mg Tab 750 MG PO Q48H infection #3 Ref 0 TAB Continued Medications: Alprazolam (Xanax) 0.25 Mg Tab 0.25 MG PO HS PRN ANXIETY Ref 0 TAB Diltiazem CD 24 HR (Diltiazem CD 24 HR) 120 Mg Caper 120 MG PO DAILY #30 Ref 0 CAP Furosemide (Furosemide) 20 Mg Tab 20 MG PO DAILY heart #30 Ref 0 TAB Gabapentin (Gabapentin) 600 Mg Tab 600 MG PO TID #90 Ref 0 TAB Hydrocodone-Acetaminophen ([place]) 10-325 Mg Tab 1 TAB PO Q4H PRN PAIN Ref 0 TAB Lisinopril (Lisinopril) 10 Mg Tab 10 MG PO DAILY #30 Ref 0 TAB Metoprolol Tartrate (Lopressor) 100 Mg Tab 100 MG PO BID heart #60 TAB Omeprazole (Omeprazole) 20 Mg Tab 20 MG PO BID #30 Ref 0 TAB Potassium Chloride ER (K-Tab) 10 Meq Tab 10 MEQ PO DAILY Electrolyte Replacement #30 Ref 0 TAB Rivaroxaban (Xarelto) 20 Mg Tab 20 MG PO DAILY Blood Clot Prevention Ref 0 TAB Simvastatin (Simvastatin) 20 Mg Tab 20 MG PO HS Cholesterol Management #30 Ref 0 TAB Discontinued Medications: Digoxin (Digoxin) 0.25 Mg Tab 0.25 MG PO DAILY heart #30 TAB Billie Matthews MD Oct 24, 2016 22:54
== END 2016-10-22 17:08 | disposition home health service (06) | DRG 439 ==
LOC: NEPC 16:32 → NEDA 21:43 → HCIN 10-19 03:50 → HCIS 10-21 17:44
PROVIDERS: ADMIT Family Medicine; ATTEND Family Medicine
PROC: 5A09357 Assistance with Respiratory Ventilation, Less than 24 Consecutive Hours, Continuous Positive Airway Pressure (ICD-10-PCS; principal; 2016-10-18)
DX: K85.10 Biliary acute pancreatitis without necrosis or infection (principal); I50.32 Chronic diastolic (congestive) heart failure; J84.10 Pulmonary fibrosis, unspecified; I11.0 Hypertensive heart disease with heart failure; I48.91 Unspecified atrial fibrillation; E83.51 Hypocalcemia; K81.9 Cholecystitis, unspecified; I34.0 Nonrheumatic mitral (valve) insufficiency; R09.02 Hypoxemia; E78.5 Hyperlipidemia, unspecified; K21.9 Gastro-esophageal reflux disease without esophagitis; N39.3 Stress incontinence (female) (male); M81.0 Age-related osteoporosis without current pathological fracture; M79.7 Fibromyalgia; M19.90 Unspecified osteoarthritis, unspecified site; F41.9 Anxiety disorder, unspecified; Z79.01 Long term (current) use of anticoagulants; Z85.828 Personal history of other malignant neoplasm of skin; Z86.73 Personal history of transient ischemic attack (TIA), and cerebral infarction without residual deficits
CPT/HCPCS: 36600; 70450; 71010; 74177; 76937; 78226; 80048; 80053; 80162; 80202; 81001; 82550; 83605; 83690; 83880; 84484; 85025; 85027; 85610; 85730; 87040; 87493; 93005; 94002; 94664; 96360; 96361; A9537; J0610; J1940; J2405; J2543; J3370; J7030; J7050; Q9967